=== PATIENT | female | born 1960 | race Caucasian/White ===

== ENCOUNTER 2018-03-06 14:02 | Emergency (ER) | payer OTHER, SELFPAY ==
[2018-03-06 14:11] VITALS: BP 121/72; PULSE 83; RESP 16; TEMP 37.1; O2SAT 98
--- NOTE | 2018-03-06 15:14 | W.ED.GENAD ---
Discharge Plan Disposition Patient Disposition: HOME Condition: Good Discharge Details Chief Complaint: Laceration Clinical Impression: Laceration of left index finger, Laceration of left middle finger Primary Care Provider: Falguni Kaiser ED Provider: Fercho Bernard Home Meds and New Rx's Prescriptions: No Action paroxetine HCl [Paxil] 30 MG tablet 30 mg PO HS RF: 0 omega 6-zhf-pdm-fish oil 1 EACH capsule,delayed release(DR/EC) 1 ea PO HS RF: 0 ibuprofen 200 MG capsule 600 mg PO PRN PRNRF: 0 Discharge Instructions Instructions: Finger Laceration (ED) Additional Instructions: Watch for any signs of infection and return immediately if these occur. Otherwise keep wound clean and dry and keep dressing in place for the next 24-48 hours. Return to emergency department 10 days for suture removal Referrals: [facility] Emergency Dept. [Outside] (Return to emergency department 10 days for suture removal. Otherwise return immediately for any signs of infection) Discharge Data Discharge Date/Time-TO BE ENTERED AT DEPARTURE: 03/06/18 15:27 Medical Decision Making MDM Narrative Medical decision making narrative: Patient presenting to the emergency department after hand laceration while using hedge tremors. Patient has a very small superficial laceration to the palmar aspect of the left hand on the distal index finger that is nonbleeding and superficial. Patient does have a deeper laceration to the base of the left index finger that is approximately 2 cm in total length irregular borders multiple flaps. Patient has full movement function and sensation along with appropriate cap refill distal to injury to point discrimination is intact patient gave verbal consent to clean out and suture repair. Wound was anesthetized with 2 mL's of 1% lidocaine and finger tourniquet was placed on the wound. Wound was viewed to base in bloodless field and only adipose tissue involvement was noted. No tendon, bone, vascular, or neurological damage is noted. Wound was thoroughly irrigated with normal saline and closed with 4-0 Prolene and 6 sutures were utilized to approximate wound edges. Wound was then covered with bacitracin and sterile gauze. Patient encouraged to return for any signs of infection otherwise to return in 10 days for suture removal patient states tetanus within the last 2 years.. HPI - General Adult General Date/Time Provider Initiated Documentation: 03/06/18 14:22. Limitations to Documentation: no limitations. Information obtained by: patient and RN notes reviewed. History of Present Illness 57 year old F presents to the emergency department with the chief complaint of left finger laceration, described as mild, with intensity rated at 3. Quality is described as dull and constant, and is localized to the left and upper extremity. Patient reports no radiation. Patient started experiencing this hour(s) (2) and it has been constant. No relieving factors improve symptom(s), No exacerbating factors reported . Patient notes no other symptoms.. Patient did receive the following treatments prior to arrival, none Related Data Home Medications Medication Instructions Recorded Confirmed omega 6-fjv-ojh-fish oil 1 ea PO HS 04/16/16 03/06/18 paroxetine HCl [Paxil] 30 mg PO HS 04/16/16 03/06/18 ibuprofen 600 mg PO PRN PRN 04/20/16 03/06/18 Allergies Allergy/AdvReac Type Severity Reaction Status Date / Time codeine AdvReac Severe Unverified 03/06/18 14:17 hydrocodone bitartrate AdvReac Severe n/v Unverified 03/06/18 14:17 [From Vicodin] meperidine HCl [From Demerol] AdvReac Severe n/v Unverified 03/06/18 14:17 General Stated Complaint: Laceration JUANITO: 4 Review of Systems Constitutional Denies body ache(s), Denies chills and Denies fever(s) Cardiovascular Denies chest pain and Denies dyspnea Respiratory Denies dyspnea Musculoskeletal Denies limited range of motion, Denies muscle weakness and Denies numbness Integumentary/Breasts Reports as per HPI and Denies rash Neurologic Denies confusion, Denies numbness and Denies sensory deficit Psychiatric Denies confusion [facility] Social History Smoking/Tobacco Use Status: Former Tobacco Use Surgical History Arthroplasty of knee (04/20/16) Exam Const General: cooperative, no acute distress and not ill appearing Orientation: alert, awake and oriented x3 HENMT Mouth: moist mucous membranes Resp Effort & Inspection: normal respiratory effort, able to speak in complete sentences and no respiratory distress Cardio Rate: regular rate Rhythm: regular rhythm Neuro General: alert, awake, oriented x3, moves all extremities and no focal motor deficits Sensory Exam: no sensory deficits noted Extrem Left upper extremity: full ROM, normal capillary refill and hand Details: normal capillary refill, neuromotor exam normal, neurosensory exam normal, tendon exam normal, vascular exam Details: radial pulse present and laceration 3rd digit palmar aspect distal Details: flap, superficial, with motor nerve function intact and with sensation intact; not actively bleeding, 2nd digit palmar aspect proximal Details: irregular, Y-shaped, actively bleeding, involving subcutaneous tissue, with motor nerve function intact and with sensation intact; not involving muscle tissue Course Vital Signs Temperature 37.1 C 03/06/18 14:11 Pulse 83 03/06/18 14:11 Respiratory Rate 16 03/06/18 14:11 Blood Pressure 121/72 03/06/18 14:11 Pulse Oximetry 98 03/06/18 14:11 Temperature 37.1 C 03/06/18 14:11 Pulse 83 03/06/18 14:11 Respiratory Rate 16 03/06/18 14:11 Blood Pressure 121/72 03/06/18 14:11 Pulse Oximetry 98 03/06/18 14:11 Procedures Laceration Laceration 1: Site: hand (Proximal index finger) Side (If applicable): left Size (cm): 2 Description: irregular and clean Depth: simple, single layer Local Anesthetic: Lidocaine 1% Amount of anesthesia used (mL): 2 Pre-repair: wound explored, irrigated extensively and deep structures intact Skin layer closed with: nylon Size (cm): 4-0 Number of sutures: 6 Technique: simple, interrupted
--- NOTE | 2018-03-06 15:19 | ED.GENADUL_ITS ---
Discharge Plan Disposition Patient Disposition: HOME Condition: Good Discharge Details Chief Complaint: Laceration Clinical Impression: Laceration of left index finger, Laceration of left middle finger Primary Care Provider: Falguni Kaiser ED Provider: Fercho Bernard Home Meds and New Rx's Prescriptions: No Action paroxetine HCl [Paxil] 30 MG tablet 30 mg PO HS RF: 0 omega 6-oke-hrn-fish oil 1 EACH capsule,delayed release(DR/EC) 1 ea PO HS RF: 0 ibuprofen 200 MG capsule 600 mg PO PRN PRNRF: 0 Discharge Instructions Instructions: Finger Laceration (ED) Additional Instructions: Watch for any signs of infection and return immediately if these occur. Otherwise keep wound clean and dry and keep dressing in place for the next 24- 48 hours. Return to emergency department 10 days for suture removal Referrals: [facility] Emergency Dept. [Outside] (Return to emergency department 10 days for suture removal. Otherwise return immediately for any signs of infection) Discharge Data Discharge Date/Time-TO BE ENTERED AT DEPARTURE: 03/06/18 15:27 Medical Decision Making MDM Narrative Medical decision making narrative: Patient presenting to the emergency department after hand laceration while using hedge tremors. Patient has a very small superficial laceration to the palmar aspect of the left hand on the distal index finger that is nonbleeding and superficial. Patient does have a deeper laceration to the base of the left index finger that is approximately 2 cm in total length irregular borders multiple flaps. Patient has full movement function and sensation along with appropriate cap refill distal to injury to point discrimination is intact patient gave verbal consent to clean out and suture repair. Wound was anesthetized with 2 mL's of 1% lidocaine and finger tourniquet was placed on the wound. Wound was viewed to base in bloodless field and only adipose tissue involvement was noted. No tendon, bone, vascular , or neurological damage is noted. Wound was thoroughly irrigated with normal saline and closed with 4-0 Prolene and 6 sutures were utilized to approximate wound edges. Wound was then covered with bacitracin and sterile gauze. Patient encouraged to return for any signs of infection otherwise to return in 10 days for suture removal patient states tetanus within the last 2 years.. HPI - General Adult General Date/Time Provider Initiated Documentation: 03/06/18 14:22 . Limitations to Documentation: no limitations . Information obtained by: patient and RN notes reviewed . History of Present Illness 57 year old F presents to the emergency department with the chief complaint of left finger laceration, described as mild, with intensity rated at 3. Quality is described as dull and constant, and is localized to the left and upper extremity. Patient reports no radiation. Patient started experiencing this hour(s) (2) and it has been constant. No relieving factors improve symptom(s), No exacerbating factors reported . Patient notes no other symptoms.. Patient did receive the following treatments prior to arrival, none Related Data Home Medications Medication Instructions Recorded Confirmed omega 1-nxk-nwr-fish oil 1 ea PO HS 04/16/16 03/06/18 paroxetine HCl [Paxil] 30 mg PO HS 04/16/16 03/06/18 ibuprofen 600 mg PO PRN PRN 04/20/16 03/06/18 Allergies Allergy/AdvReac Type Severity Reaction Status Date / Time codeine AdvReac Severe Unverified 03/06/18 14:17 hydrocodone bitartrate AdvReac Severe n/v Unverified 03/06/18 14:17 [From Vicodin] meperidine HCl [From Demerol] AdvReac Severe n/v Unverified 03/06/18 14:17 General Stated Complaint: Laceration JUANITO: 4 Review of Systems Constitutional Denies body ache(s), Denies chills and Denies fever(s) Cardiovascular Denies chest pain and Denies dyspnea Respiratory Denies dyspnea Musculoskeletal Denies limited range of motion, Denies muscle weakness and Denies numbness Integumentary/Breasts Reports as per HPI and Denies rash Neurologic Denies confusion, Denies numbness and Denies sensory deficit Psychiatric Denies confusion [facility] Social History Smoking/Tobacco Use Status: Former Tobacco Use Surgical History Arthroplasty of knee (04/20/16) Exam Const General: cooperative, no acute distress and not ill appearing Orientation: alert, awake and oriented x3 HENMT Mouth: moist mucous membranes Resp Effort & Inspection: normal respiratory effort, able to speak in complete sentences and no respiratory distress Cardio Rate: regular rate Rhythm: regular rhythm Neuro General: alert, awake, oriented x3, moves all extremities and no focal motor deficits Sensory Exam: no sensory deficits noted Extrem Left upper extremity: full ROM, normal capillary refill and hand Details: normal capillary refill, neuromotor exam normal, neurosensory exam normal, tendon exam normal, vascular exam Details: radial pulse present and laceration 3rd digit palmar aspect distal Details: flap, superficial, with motor nerve function intact and with sensation intact; not actively bleeding, 2nd digit palmar aspect proximal Details: irregular, Y-shaped, actively bleeding, involving subcutaneous tissue, with motor nerve function intact and with sensation intact; not involving muscle tissue Course Vital Signs Temperature 37.1 C 03/06/18 14:11 Pulse 83 03/06/18 14:11 Respiratory Rate 16 03/06/18 14:11 Blood Pressure 121/72 03/06/18 14:11 Pulse Oximetry 98 03/06/18 14:11 Temperature 37.1 C 03/06/18 14:11 Pulse 83 03/06/18 14:11 Respiratory Rate 16 03/06/18 14:11 Blood Pressure 121/72 03/06/18 14:11 Pulse Oximetry 98 03/06/18 14:11 Procedures Laceration Laceration 1: Site: hand (Proximal index finger) Side (If applicable): left Size (cm): 2 Description: irregular and clean Depth: simple, single layer Local Anesthetic: Lidocaine 1% Amount of anesthesia used (mL): 2 Pre-repair: wound explored, irrigated extensively and deep structures intact Skin layer closed with: nylon Size (cm): 4-0 Number of sutures: 6 Technique: simple, interrupted
== END 2018-03-06 15:27 | disposition home or self-care (01) ==
LOC: ER 15:29
PROVIDERS: Emergency Provider Nurse Practitioner Family; PCP Nurse Practitioner Family
DX: S61.213A Laceration without foreign body of left middle finger without damage to nail, initial encounter (principal); S61.211A Laceration without foreign body of left index finger without damage to nail, initial encounter; W27.1XXA Contact with garden tool, initial encounter; Y93.H2 Activity, gardening and landscaping
CPT/HCPCS: 12001

== ENCOUNTER 2019-07-23 01:19 | Outpatient (CLI) | payer OTHER, SELFPAY ==
--- NOTE | 2019-07-23 13:30 | DI.CTLCSR_ITS ---
EXAM: CT CHEST LUNG CANCER SCREEN CLINICAL HISTORY: Baseline screening for lung cancer, Z87.891 TECHNIQUE: COMPARISON: No exams were available for comparison FINDINGS: CT examination of chest was performed utilizing low-dose lung cancer screening protocol. Images obta ined through the upper abdomen show unremarkable appearance of visualized portions of liver, spleen, and left adrenal. No mediastinal or hilar adenopathy identified. No pleural effusion or pleural-based mass. Tiny calc ified lingular nodule noted. Tiny flattened fissural nodule also noted on the left. No suspicious p ulmonary nodule identified. IMPRESSION: Negative CT, lung cancer screening protocol. Category 1. Routine LD CT follow-up in 12 months.
--- NOTE | 2019-07-23 14:00 | DI.MAMMO_ITS ---
EXAM: MAMMO SCREENING CLINICAL HISTORY: screening, Z12.39 TECHNIQUE: Mammograms were interpreted according to the usual protocol including computer analysis w [employer] CAD system, tomosynthesis and C-view imaging. COMPARISON: Current examination is compared with previous examinations including July 2017 FINDINGS: The breasts are heterogeneously dense. No dominant mass or clumped microcalcification is identified in either breast. Current examination is compared with previous examinations including July 2017 and there is question of an interval development of nodular appearance of retroareolar radiodensitie s in the left breast on CC view in comparison with the prior studies. Additional evaluation with spo t compression views of the left breast recommended in CC projection. Additionally, there is question of interval change in appearance of areas of asymmetric density with question of architectural distortion in the retroareolar portion of the right breast on MLO view. Ad ditional MLO spot compression view of the right breast requested as well. IMPRESSION: Additional mammographic views of both breasts requested as described above. Breast ultrasound may be indicated as well depending on the results of the additional mammographic views. Category 0, breast d ensity category C. BI-RADS Cat 0 - Assessment Incomplete: Need additional imaging evaluation Breast Density - Category C - Heterogeneously dense
== END 2019-07-23 01:39 ==
PROVIDERS: PCP Internal Medicine; Visit Provider Internal Medicine
DX: Z12.31 Encounter for screening mammogram for malignant neoplasm of breast (principal); R92.8 Other abnormal and inconclusive findings on diagnostic imaging of breast; Z12.2 Encounter for screening for malignant neoplasm of respiratory organs
CPT/HCPCS: 77063; 77067; G0297

== ENCOUNTER 2019-08-06 02:20 | Outpatient (CLI) | payer OTHER, SELFPAY ==
--- NOTE | 2019-08-06 14:15 | DI.US_ITS ---
EXAM: MG MAMMO SCREEN CALL BACK BI CLINICAL HISTORY: F/U ABNL MAMMO, ? NODULAR RETROAREOLAR RADIODENSITIES, LT; ASYMMETRIC RETROAREOLA R DENSITY, RT. TECHNIQUE: Craniocaudal and mediolateral oblique Full Field Digital Mammography views of the bilater al breast with Computer Aided Diagnosis followed by Tomosynthesis and bilateral breast ultrasound. COMPARISON: Priors available for comparison FINDINGS: Mammography/Tomosynthesis: Masses/Architectural Distortion: None seen. Microcalcifictions: No suspicious pleomorphic-type are seen. Skin Thickening/Nipple Retraction: None. Right breast US: Echotexture: Normal appearance of the glandular tissue. Shadowing: No suspicious foci. Cyst: None. Solid lesions: None seen. Ductal dilation: None. Left breast US: Echotexture: Normal appearance of the glandular tissue. Shadowing: No suspicious foci. Cyst: None. Solid lesions: None seen. Ductal dilation: None. IMPRESSION: 1. No evidence of malignancy is noted. 2. Unless there is more urgent need, follow-up screening mammography is recommended, as per [employer] guidelines. ACR BI-RAD Category- 1 Negative Breast Density - Category C - Heterogeneously dense Findings were discussed with the patient on the date of the examination. The mammogram demonstrates the patient's breast tissue is dense. Dense breast tissue is very common a nd is not abnormal but dense breast tissue can make it harder to find cancer on a mammogram. Also, de nse breast tissue may increase their breast cancer risk. This information about the result of the [facility] mogram report was provided to the patient to raise their awareness. Use this report when you speak wi th the patient about their risks for breast cancer, which includes their family history. At that time , you may recommend for more screening tests (Ultrasound or MRI) as they might be useful based on the ir risk. A negative radiographic report should not delay biopsy if a dominant or clinically suspicious mass is present. Up to ten percent of cancers are not identified on mammography. A negative report may reinforce clinical impression. Adenosis and dense breasts may obscure an underlying neoplasm. False positive reports average 6 to 10%. Patient will receive a letter notifying them of these results.
== END 2019-08-06 02:40 ==
PROVIDERS: PCP Internal Medicine; Visit Provider Internal Medicine
DX: Z12.31 Encounter for screening mammogram for malignant neoplasm of breast (principal); R92.8 Other abnormal and inconclusive findings on diagnostic imaging of breast; N64.59 Other signs and symptoms in breast
CPT/HCPCS: 76642; 77063; 77067

== ENCOUNTER 2019-12-28 00:47 | Outpatient (CLI) | payer OTHER, SELFPAY ==
--- NOTE | 2019-12-28 07:00 | DI.CT_ITS ---
EXAM: CT RENAL COLIC WO CLINICAL HISTORY: KIDNEY STONE ON CT 12-15-19, NEPHROLITHIASIS, N20.0 CALCULUS. TECHNIQUE: Imaging Protocol: Axial computed tomography images with coronal and sagittal reformatted images were created and reviewed. Oral: no COMPARISON: No exams were available for comparison FINDINGS: ABDOMEN: Lung Bases: Normal where visualized. Liver: Normal density. No measurable mass. Gallbladder and biliary tract: No radiodense calculus or dilation. Pancreas: Normal density, no abnormal calcifications or inflammatory process. Spleen: Normal. Kidneys: Normal size, contour and axis. There is a 5 millimeter stone near the lower pole of the rig ht kidney. A 4 millimeter stone is seen near the lower pole of the left kidney. There is an adjacen t 2 millimeter stone. No obstructive uropathy. No masses seen. Adrenal glands: No masses seen. Lymph nodes: Within normal limits. Abdominal Aorta: Abdominal portion non-dilated. Moderate calcification. PELVIS: Bladder: Symmetric distention, no gross wall thickening. No mass or stones. Bowel: No obstruction or bowel wall thickening. Peritoneal cavity: No ascites, collection or mesenteric inflammatory response. Reproductive organs: Within normal limits. Bones: Degenerative changes and scoliosis. IMPRESSION: Nonobstructing stones at the lower poles of both kidneys. RADIATION DOSE DELIVERED: Total DLP Total DLP DATA REPOSITORY: All CT scans at this facility are submitted to the National Radiology Data Registry (NRDR) Dose Index Registry (DIR) with the [employer] (ACR). RADIATION OPTIMIZATION: All CT scans at this facility use at least one of these dose optimization te chniques: automated exposure control; mA and/or kV adjustment per patient size (includes targeted exa ms where dose is matched to clinical indication); or iterative reconstruction.
== END 2019-12-28 01:07 ==
PROVIDERS: PCP Internal Medicine; Visit Provider Internal Medicine
DX: N20.0 Calculus of kidney (principal)
CPT/HCPCS: 74176

== ENCOUNTER 2020-06-01 02:16 | Outpatient (CLI) | payer OTHER, SELFPAY ==
[2020-06-02 19:21] LABS: COVID-19 RT-PCR UVMMC Result Negative (Negative)
== END 2020-06-01 02:36 ==
PROVIDERS: PCP Internal Medicine; Visit Provider Internal Medicine
DX: Z11.59 Encounter for screening for other viral diseases (principal)
CPT/HCPCS: U0003

== ENCOUNTER 2020-06-26 02:00 | Emergency (ER) | payer OTHER, SELFPAY ==
--- NOTE | 2020-06-26 02:00 | DI.CT_ITS ---
EXAM: CT RENAL COLIC WO INDICATION: right flank pain. COMPARISON: CT CT RENAL COLIC WO from 12/28/2019 TECHNIQUE: CT examination was performed without contrast administration. FINDINGS: Images obtained through the lung bases are unremarkable. Visualized portions of the liver and splee n appear intact. Visualized portions of the pancreas are unremarkable. Gallbladder and bile ducts are CT normal. Abdominal aorta is of normal diameter. No significant abdominal wall hernia. No significant abdominal or pelvic adenopathy. Adrenals appear normal bilaterally. There are bilateral nonobstructing renal calculi, the largest lying in the inferior pole of the right kidney measuring about 5 millimeters in diameter. There is no left hydronephrosis or ureterolithias is. There is moderate right hydronephrosis and hydroureter to the level of the distal ureter few cm above the ureterovesical junction where there is an obstructing 7 millimeter in diameter stone. Urinary bladder is nearly empty. There is no evidence of appendicitis or diverticulitis. No evidence of bowel obstruction. IMPRESSION: Bilateral nonobstructing nephrolithiasis. Obstructing 7 millimeter in diameter distal right ureteral stone. RADIATION DOSE DELIVERED: 647.25mGy.cm DLP 647.25mGy.cm Total DLP
[2020-06-26 02:05] VITALS: BP 167/91; PULSE 63; RESP 16; TEMP 36.9; O2SAT 99
--- NOTE | 2020-06-26 02:10 | ED.GENADUL_ITS ---
Discharge Plan Disposition Patient Disposition: HOME Condition: Good Discharge Details Clinical Impression: Kidney stone Primary Care Provider: Claire Aguilera ED Provider: Colby Shah Home Meds and New Rx's Prescriptions: New tamsulosin [Flomax] 0.4 mg capsule 0.4 mg PO DAILY Qty: 7 RF: 0 Continued escitalopram oxalate 5 mg tablet 7.5 mg PO DAILY Qty: 135 RF: 2 tumeric 500 mg tablet 1 tab PO DAILY RF: 0 dimenhydrinate [Dramamine] 50 mg tablet 50 mg PO BID PRNRF: 0 estradiol [Estrace] 0.01 % (0.1 mg/gram) cream See Rx Instructions VG .COMPLEX PRN (Reason: vaginal irritation) Qty: 42.5 RF: 5 tretinoin 0.1 % cream 1 applic TP QHS RF: 0 ondansetron 4 mg tablet,disintegrating 4 mg PO DAILY PRN (Reason: nausea and vomiting) Qty: 10 RF: 2 omega 9-bwc-gyv-fish oil 1 EACH capsule,delayed release(DR/EC) 1 ea PO HS RF: 0 ibuprofen 200 MG capsule 600 mg PO PRN PRNRF: 0 ketorolac 10 mg tablet 10 mg PO PRNRF: 0 Discharge Instructions Instructions: Kidney Stones (ED) Additional Instructions: At this time you have evidence of a kidney stone on your CAT scan. It will likely pass in the next day or so. Please take the Flomax as needed if you have continued pain. Next dosing would be 12/25/2020 6 AM. Please continue to take your ketorolac and Tylenol as needed for pain. Please drink plenty of fluids. If you notice any worsening of your symptoms, or any new symptoms such as vomiting, diarrhea, fever, chills, shortness of breath, chest pain, numbness, weakness, or fainting , please return immediately to the emergency department for reevaluation. Please follow up with your primary care provider as soon as possible for reassessment and reevaluation. As always, it was a pleasure participating in your medical care today. Referrals: Claire Aguilera MD [Primary Care Provider] - Medical Decision Making 59-year-old female with a past medical history of previous kidney stones presents today for evaluation of right flank pain. Patient states that this evening she developed rather sudden onset flank pain at 8 PM, stating that it felt exactly like her previous kidney stone. She took 10 mg of oral ketorolac, she felt that this notably improved her symptoms. She denies any blood, fever, dysuria. She did have one episode of vomiting shortly after taking the ketorolac. She denies any other complaints at this time. No other modifying factors. Physical exam demonstrates mild right CVA tenderness, no signs of an acute guarding or rebound in the abdomen. Symptoms are concerning for kidney stone. She does not want any opiates for pain management, and in fact her pain is very mild at this time. We will Tylenol, gently rehydrate, get a CT scan to evaluate for stone placement or size, get a urinalysis to evaluate for infection. Will monitor closely and reassess. 3:42 AM Patient laboratory work-up has returned, no white count, electrolytes normal, renal function excellent, urinalysis shows no evidence of infection, negative nitrates, negative leuk esterase, no WBCs of significance. Patient feels well. CT scan has returned demonstrates a 7 x 4 mm calculus in the distal right ureter. Patient feels good to go home. Patient will be discharged with Flomax, recommendations for continued ketorolac and Tylenol. Stone per urinalysis is calcium oxalate. Discussed red flags which to return, I have extensively reviewed the treatment plan and discharge instructions with the patient. I have addressed all patient concerns at this time. The patient was made aware of what symptoms to monitor for that would warrant a return to the emergency department. Discussed the plan with the patient, they demonstrate verbal understanding and agreement with our assessment and plan at this time. IMPRESSION: 1. A partially obstructing 7 x 4 mm calculus in the distal right ureter. 2. Additional bilateral nonobstructing nephrolithiasis. 3. Moderate colonic fecal stasis. 4. 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 Osteoarthritis of both hips. Thank you for allowing us to participate in the care of your patient. Dictated and Authenticated by: Lonnie Manriquez MD 06/26/2020 3:30 AM Eastern Time ([place] & [place]) HPI General Date/Time Provider Initiated Documentation: 06/26/20 02:02 . HPI Narrative: 59-year-old female with a past medical history of previous kidney stones presents today for evaluation of right flank pain. Patient states that this evening she developed rather sudden onset flank pain at 8 PM, stating that it felt exactly like her previous kidney stone. She took 10 mg of oral ketorolac, she felt that this notably improved her symptoms. She denies any blood, fever, dysuria. She did have one episode of vomiting shortly after taking the ketorolac. She denies any other complaints at this time. No other modifying factors. Related Data Home Medications Medication Instructions Recorded Confirmed omega 8-qbc-ime-fish oil 1 ea PO HS 04/16/16 06/26/20 ibuprofen 600 mg PO PRN PRN 04/20/16 06/26/20 tretinoin 0.1 % topical cream 1 applic TP QHS 09/08/18 06/26/20 tumeric 1 tab PO DAILY 10/28/18 04/26/20 dimenhydrinate 50 mg tablet 50 mg PO BID PRN tab 07/01/19 06/26/20 estradiol See Rx Instructions VG .COMPLEX 07/01/19 06/26/20 PRN #42.5 gm escitalopram oxalate 5 mg tablet 7.5 mg PO DAILY #135 tab 04/26/20 06/26/20 ondansetron 4 mg disintegrating 4 mg PO DAILY PRN #10 tab 06/07/20 06/26/20 tablet ketorolac 10 mg PO PRN 06/26/20 tamsulosin [Flomax] 0.4 mg PO DAILY #7 cap 06/26/20 Previous Rx's Medication Instructions Recorded estradiol See Rx Instructions VG .COMPLEX 07/01/19 PRN #42.5 gm escitalopram oxalate 5 mg tablet 7.5 mg PO DAILY #135 tab 04/26/20 ondansetron 4 mg disintegrating 4 mg PO DAILY PRN #10 tab 06/07/20 tablet tamsulosin [Flomax] 0.4 mg PO DAILY #7 cap 06/26/20 Allergies Allergy/AdvReac Type Severity Reaction Status Date / Time codeine AdvReac Severe vomiting Verified 06/26/20 02:09 hydrocodone bitartrate AdvReac Severe n/v Verified 06/26/20 02:09 [From Vicodin] meperidine HCl [From Demerol] AdvReac Severe n/v Verified 06/26/20 02:09 melatonin AdvReac Intermediate very Verified 06/26/20 02:09 irritable paroxetine AdvReac Intermediate sleep Verified 06/26/20 02:09 issues, hot flashes General Stated Complaint: Urinary JUANITO: 3 Review of Systems All systems reviewed & are unremarkable except as noted in HPI and below PFSH Medical History Carpal tunnel syndrome (06/11/13) Hot flash not due to menopause Longitudinal melanonychia R Great toe, 09/04/18 [facility] [place]erm[place] Solar lentiginosis 09/04/18 [facility] [place]erm Surgical History Arthroplasty of knee (04/20/16) LEFT/DR. PANDYA H/O colonoscopy (~06/24/09) History of esophagogastroduodenoscopy (EGD) (~06/24/00) S/P left knee arthroscopy (~04/20/16) w/Limited chondroplasty medial femoral condyle, medial tibial plateau and patella. 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[employer] What is your relationship status?: Panel score (0-1 are the most socially isolated patients): 1 What type of physical activity do you participate in: regular exercise Frequency: 3-4 times per week Seatbelt use: always Helmet use: Yes Drive intox or ride w/intox 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 3.ENT: Atraumatic external nose and ears. Moist MM. Neck: Symmetric, trachea midline, No thyromegaly. 4.CVS: +S1/S2, No murmurs or gallops. Peripheral pulses 2+ and equal in all extremities. Brisk capillary refill in all extremities. 5.RESP: Unlabored respiratory effort. Clear to auscultation bilaterally. No wheezes rales or rhonchi 6.GI: Soft, Nontender/Nondistended, No hepatosplenomegaly. No guarding or r ebound. Mild right CVA tenderness. No pain or McBurney's point, negative Cook sign. 7.MSK: Normocephalic/Atraumatic, Extremities w/o deformity or ttp No cyanosis or clubbing, Normal movement of all extremities 8.Skin: Warm, Dry. No rashes or lesions. 9.Neuro: occupational health technician II-XII grossly intact. Sensation grossly intact, no focal neurologic deficits. 10.Psych: (AAO) x3. Appropriate mood and affect Course Vital Signs Vital signs: Vital Signs Temperature 36.9 C 06/26/20 02:05 Pulse 63 06/26/20 02:05 Respiratory Rate 16 06/26/20 02:05 Blood Pressure 167/91 H 06/26/20 02:05 Pulse Oximetry 99 06/26/20 02:05 Temperature 36.9 C 06/26/20 02:05 Temperature Source Skin 06/26/20 02:05 Pulse 63 06/26/20 02:05 Respiratory Rate 16 06/26/20 02:05 Blood Pressure 167/91 H 06/26/20 02:05 Pulse Oximetry 99 06/26/20 02:05 Pain Level 10 06/26/20 02:05
[2020-06-26] MEDS: Acetaminophen 500 MG TAB 1000 MG PO (02:29)
[2020-06-26] MEDS: Normal Saline 1,000 ML 1000 ML IV (02:29)
[2020-06-26 02:38] LABS: Abs Immature Grans 0.02 10^3/uL (0.0-0.06); Absolute Basophil Count 0.02 10^3/uL (0.0-0.2); Absolute Eosinophil Count 0.16 10^3/uL (0.0-0.7); Absolute Lymphocyte Count 3.07 10^3/uL (1.2-3.4); Absolute Monocyte Count 0.54 10^3/uL (0.1-0.8); Absolute Neutrophil Count 2.89 10^3/uL (1.2-6.7); Basophils % 0.3; Eosinophils % 2.4; HCT 41.5 % (36.0-46.0); HGB 13.4 g/dL (11.2-15.7); Immature Grans % 0.3; Lymphocytes % 45.8; MCH 30.2 pg (27.0-33.0); MCHC 32.3 % (32.0-36.0); MCV 93.5 fL (80-95); MPV 11.1 fL (8.0-11.0); Monocytes % 8.1; Neutrophils % 43.1; Nucleated RBC 0 %; Platelet Count 188 10^3/uL (130-400); RBC 4.44 10^6/uL (3.93-5.22); RDW 12.1 % (11.7-14.6); RDW-SD 41.8 fL
[2020-06-26 02:39] LABS: Bilirubin Small (Negative); Blood Moderate (Negative); Clarity Sl Cloudy (Clear); Glucose Negative (Negative); Ketones Negative (Negative); Leukocyte Esterase Negative (Negative); Nitrite Negative (Negative); Specific Gravity >= 1.030 (1.005-1.025); Urobilinogen 0.2 EU/dL (Up TO 0.2); pH 5.5 (5-8)
[2020-06-26 02:46] LABS: Bacteria Rare HPF (Negative); C & S Indicated? No; Casts Negative LPF (Negative); Crystals Mod Calcium Oxalate HPF (Negative); Epithelial Cells Rare HPF (Negative); Mucus Negative (Negative); RBC 20-50 HPF (0-2); WBC 0-2 HPF (0-5)
[2020-06-26 02:55] LABS: ALT 53 U/L (14-59); AST 37 U/L (15-37); Albumin 3.8 g/dL (3.4-5.0); Alkaline Phosphatase 72 U/L (46-116); BUN 32 mg/dL (7-18); Bilirubin, Total 0.4 mg/dL (0.2-1.0); CREATININE 0.93 mg/dL (0.55-1.02); Calcium 8.7 mg/dL (8.5-10.1); Chloride 104 mmol/L (98-107); Glucose 94 mg/dL (74-106); Potassium 3.9 mmol/L (3.5-5.1); Sodium 138 mmol/L (136-145); Total Protein 6.9 g/dL (6.4-8.2)
--- NOTE | 2020-06-26 03:30 | DI.VRAD_ITS ---
PROCEDURE INFORMATION: Exam: CT Abdomen And Pelvis Without Contrast Exam date and time: 06/26/2020 2:37 AM Age: 59 years old Clinical indication: Other: RT flank pain TECHNIQUE: Imaging protocol: Computed tomography of the abdomen and pelvis without contrast. COMPARISON: CT RENAL COLIC WO 12/28/2019 9:19 AM FINDINGS: Lungs: The visualized lung da silva show mild bibasilar atelectasis. Liver: The liver dome is outside the field of view. The liver shows normal homogeneous density. Gallbladder and bile ducts: No calcified gallstones. No ductal dilation. Pancreas: Normal size and homogeneous density. No ductal dilation. Spleen: Normal. No splenomegaly. Adrenal glands: Normal. No mass. Kidneys and ureters: There is mild right hydronephrosis and there is fullness of the right ureter down to the lower pelvis where there is a 7 x 4 mm partially obstructing calculus above the right ureterovesical junction. There are additional bilateral nonobstructing renal calculi as large as 5 mm. Stomach and bowel: There is moderate fecal stasis throughout the colon. There is no evidence of small bowel or colonic obstruction. Appendix: The appendix is not identified. There are no secondary signs of acute appendicitis. Intraperitoneal space: No free air. No significant fluid collection. Vasculature: There is moderate atherosclerotic calcification and tortuosity of the abdominal aorta and iliac arteries without an abdominal aortic aneurysm. Lymph nodes: No enlarged retroperitoneal or mesenteric lymph nodes. Urinary bladder: The bladder shows a normal contour. Reproductive: Unremarkable as visualized. Bones/joints: There is moderate rotoscoliosis of the lumbar spine convex to the right. At L1-L2 and L2-L3 there are degenerative disc disease and osteophytes. There is mild grade 1 retrolisthesis of L2 on L3. There is moderate bilateral neural foraminal narrowing. There is osteoarthritis of both hips. Soft tissues: Unremarkable. IMPRESSION: 1. A partially obstructing 7 x 4 mm calculus in the distal right ureter. 2. Additional bilateral nonobstructing nephrolithiasis. 3. Moderate colonic fecal stasis. 4. 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 Osteoarthritis of both hips. Dictated and Authenticated by: Lonnie Manriquez MD. Ordering:SHARI Bowman MD
[2020-06-26] MEDS: Ketorolac 30 MG/ML VIAL IVP (03:49)
[2020-06-26] MEDS: Tamsulosin 0.4 MG CAPCR PO (03:50)
[2020-06-26 03:53] VITALS: BP 152/83; PULSE 54; RESP 16; O2SAT 98
== END 2020-06-26 04:00 | disposition home or self-care (01) ==
PROVIDERS: Emergency Provider Student in an Organized Health Care Education/Training Program; PCP Internal Medicine
DX: N20.1 Calculus of ureter (principal); Z87.442 Personal history of urinary calculi
CPT/HCPCS: 36415; 80053; 96361; 96374; 99284; 74176; 81003; 81015; 85025; 99285; J1885

== ENCOUNTER 2021-02-10 10:39 | Outpatient (CLI) | payer OTHER, SELFPAY ==
--- NOTE | 2021-02-10 09:45 | DI.RAD_ITS ---
Exam(s) XR HIP RT COMPLETE AP PELVIS EXAM: XR HIP RT COMPLETE AP PELVIS CLINICAL HISTORY: right groin pain. TECHNIQUE: 2D digital imaging was performed. COMPARISON: No exams were available for comparison FINDINGS: BONES: No acute fracture is present. No bony destructive lesion is seen. JOINTS: No dislocation present. There are moderate degenerative changes of the right hip with joint s pace narrowing and periarticular spurring. More mild degenerative changes are seen in the left hip. The sacroiliac joints and symphysis pubis are intact. SOFT TISSUE: Normal. IMPRESSION: Moderate degenerative changes of the right hip. DATA REPOSITORY: RADIATION DOSE DELIVERED:
== END 2021-02-10 10:40 | disposition home or self-care (01) ==
LOC: DIORS 10:40
PROVIDERS: PCP Internal Medicine; Visit Provider Physician Assistant
DX: M16.11 Unilateral primary osteoarthritis, right hip; R10.31 Right lower quadrant pain; G89.29 Other chronic pain
CPT/HCPCS: 73502

== ENCOUNTER 2021-03-28 10:04 | Outpatient (CLI) | payer OTHER, SELFPAY ==
--- NOTE | 2021-03-28 09:45 | DI.RAD_ITS ---
Exam(s) XR PELVIS AP EXAM: XR PELVIS AP CLINICAL HISTORY: right hip pain. TECHNIQUE: 2D digital imaging was performed. One AP view of the pelvis was obtained. COMPARISON: CR XR HIP RT COMPLETE AP PELVIS from 02/10/2021 FINDINGS: BONES: No acute fracture is present. No bony destructive lesion is seen. JOINTS: No dislocation present. Moderate degenerative changes of the hips is seen bilaterally with martine int space narrowing and periarticular spurring, right greater than left. SOFT TISSUE: Normal. IMPRESSION: Moderate degenerative changes of the hips, right greater than left. DATA REPOSITORY: RADIATION DOSE DELIVERED:
== END 2021-03-28 10:05 | disposition home or self-care (01) ==
LOC: DIORS 10:04
PROVIDERS: PCP Internal Medicine; Referring Provider Internal Medicine; Visit Provider Physician Assistant
DX: M25.551 Pain in right hip (principal); M16.11 Unilateral primary osteoarthritis, right hip
CPT/HCPCS: 72170

== ENCOUNTER 2021-04-10 02:47 | Outpatient (CLI) | payer OTHER, SELFPAY ==
[2021-04-10 10:03] LABS: HCT 45.1 % (36.0-46.0); HGB 14.5 g/dL (11.2-15.7); MCH 30.3 pg (27.0-33.0); MCHC 32.2 % (32.0-36.0); MCV 94.4 fL (80-95); Platelet Count 185 10^3/uL (130-400); RBC 4.78 10^6/uL (3.93-5.22); RDW-SD 42.3 fL; WBC 5.03 10^3/uL (4.4-10.8)
[2021-04-10 10:40] LABS: Anion Gap 7.5 mmol/L (3-11); BUN 25 mg/dL (7-18); CO2 29.5 mmol/L (21.0-32.0); CREATININE 0.8 mg/dL (0.55-1.02); Calcium 9.2 mg/dL (8.5-10.1); Chloride 108 mmol/L (98-107); Glucose 99 mg/dL (74-106); Potassium 3.9 mmol/L (3.5-5.1); Sodium 145 mmol/L (136-145)
== END 2021-04-10 02:48 | disposition home or self-care (01) ==
LOC: LBO 02:47
PROVIDERS: PCP Internal Medicine; Visit Provider Student in an Organized Health Care Education/Training Program
DX: M25.551 Pain in right hip (principal); M16.11 Unilateral primary osteoarthritis, right hip; Z01.818 Encounter for other preprocedural examination; Z01.812 Encounter for preprocedural laboratory examination
CPT/HCPCS: 36415; 80048; 85027; 86850; 86900; 86901

== ENCOUNTER 2021-04-10 02:54 | Outpatient (CLI) | payer OTHER, SELFPAY ==
[2021-04-10 11:35] LABS: Source Nasal/Nares
[2021-04-10 16:28] LABS: COVID-19 PCR Negative (Negative)
== END 2021-04-10 02:55 | disposition home or self-care (01) ==
LOC: LBO 02:54
PROVIDERS: PCP Internal Medicine; Visit Provider Student in an Organized Health Care Education/Training Program
DX: Z20.822 Contact with and (suspected) exposure to COVID-19 (principal); Z01.818 Encounter for other preprocedural examination
CPT/HCPCS: 87635

== ENCOUNTER 2021-04-11 06:01 | Day surgery (SDC) | payer OTHER, SELFPAY ==
[2021-04-10 13:51] VITALS: BP 117/80; PULSE 63; RESP 18; TEMP 36.6; O2SAT 97
[2021-04-11] VITALS (12 sets, daily range): BP systolic 86–141; BP diastolic 42–83; PULSE 44–60; RESP 13–21; TEMP 36.1–36.6; O2SAT 96–100; BMI 24.1
[2021-04-11] MEDS: Acetaminophen 500 MG TAB 1000 MG PO (06:21)
[2021-04-11] MEDS: Celecoxib 200 MG CAP 400 MG PO (06:22)
[2021-04-11] MEDS: Lactated Ringers 1,000 ML 80 ML IV (06:40)
--- NOTE | 2021-04-11 06:53 | W.ANESPRE ---
General Info Date of Service Date Performed: 04/11/21 Height: 5 ft 2 in Weight: 59.874 kg Body Mass Index (BMI): 24.1 Surgical Procedure: Operation Date: 04/11/21 07:50 Proposed Procedures Side Surgeon p Hip Total Hip Anterior Right Bal Anderson MD Meds Allergies and Home Medications Allergies Allergy/AdvReac Type Severity Reaction Status Date / Time codeine AdvReac Severe vomiting Verified 04/11/21 06:25 hydrocodone bitartrate AdvReac Severe n/v Verified 04/11/21 06:25 [From Vicodin] meperidine HCl [From Demerol] AdvReac Severe n/v Verified 04/11/21 06:25 melatonin AdvReac Intermediate very Verified 04/11/21 06:25 irritable paroxetine AdvReac Intermediate sleep Verified 04/11/21 06:25 issues, hot flashes scopolamine AdvReac Intermediate disorientat Verified 04/11/21 06:25 ion Home Medication Medication Instructions Recorded omega 6-srg-vap-fish oil 1 ea PO HS 04/16/16 ibuprofen 600 mg PO PRN PRN 04/20/16 tretinoin 0.1 % topical cream 1 applic TP QHS 09/08/18 tumeric 1 tab PO DAILY 10/28/18 dimenhydrinate 50 mg tablet 50 mg PO BID PRN tab 07/01/19 estradiol See Rx Instructions VG .COMPLEX 07/01/19 PRN #42.5 gm escitalopram oxalate 5 mg tablet 7.5 mg PO DAILY #135 tab 04/26/20 Current Visit Medications: Current Medications Generic Name Dose Route Start Last Admin Trade Name Alexsanderq PRN Reason Stop Dose Admin Acetaminophen 1,000 mg 04/11/21 06:00 04/11/21 06:21 Acetaminophen 500 Mg Tab PO 04/11/21 16:00 1,000 mg PREOP MARIUM Administration Celecoxib 400 mg 04/11/21 06:00 04/11/21 06:22 Celecoxib 200 Mg Cap PO 04/11/21 16:00 400 mg PREOP MARIUM Administration Tranexamic Acid 1,000 mg/ 60 mls @ 360 mls/hr 04/11/21 06:00 Sodium Chloride IV 04/11/21 16:00 PREOP MARIUM Ringer's Solution 1,000 mls @ 80 mls/hr 04/11/21 06:00 04/11/21 06:40 IV 05/10/21 23:59 80 mls/hr INFUSION MARIUM Administration Cefazolin Sodium/Dextrose 2 gm in 50 mls @ 100 mls/hr 04/11/21 06:00 Ancef Duplex IVPB 05/10/21 23:59 PREOP MARIUM IV Miscellaneous Supplies 1 each 04/11/21 06:00 Iv Access IV 05/10/21 23:59 DIRECTED MARIUM Sodium Chloride 0 ml 04/11/21 06:00 Normal Saline Flush 10 Ml Syr IV 05/10/21 23:59 PRN PRN Sodium Chloride 0 ml 04/11/21 06:00 Normal Saline 10 Ml Vial IJ 05/10/21 23:59 DIRECTED PRN Sterile Water 0 ml 04/11/21 06:00 Water,Injection,Sterile 10 Ml Vial IJ 05/10/21 23:59 DIRECTED PRN PFSH Active Problems Active Problems: Problem Status Onset Code Lentigines L81.4 Benign nevus of skin D22.9 Other seborrheic keratosis L82.1 Degenerative joint disease of right hip M16.11 Trigger thumb of right hand M65.311 Vestibular dysfunction H83.2X9 Elevated blood pressure reading without diagnosis of hypertension R03.0 Nephrolithiasis N20.0 Former cigarette smoker Z87.891 Dyspareunia Anxiety F41.9 Alcohol abuse, 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 PANDYA H/O colonoscopy (~06/24/09) History of esophagogastroduodenoscopy (EGD) (~06/24/00) S/P left knee arthroscopy (~04/20/16) w/Limited chondroplasty medial femoral condyle, medial tibial plateau and patella. S/P rotator cuff repair (~04/2012) right Tobacco Smoking/Tobacco Use Status: Former Tobacco Use Alcohol Alcohol Intake: never Details: no ETOH for 25 yrs Substance Use Substance use: Occasionally Substance use type: marijuana Vital Signs and Lab Results Vital Signs Most Recent Vital Signs in EMR: Most Recent Vital Signs Temp Pulse Resp BP Pulse Ox 36.6 C 63 18 117/80 97 04/10/21 13:51 04/10/21 13:51 04/10/21 13:51 04/10/21 13:51 04/10/21 13:51 Lab Results Blood Type / Crossmatch: Patient ABO/Rh AB Positive 04/10/21 09:44 04/10/21 Antibody Screen NEGATIVE 04/10/21 09:44 04/10/21 Complete Blood Count: White Blood Count 5.03 10^3/uL (4.4-10.8) 04/10/21 09:44 04/10/21 Red Blood Count 4.78 10^6/uL (3.93-5.22) 04/10/21 09:44 04/10/21 Hemoglobin 14.5 g/dL (11.2-15.7) 04/10/21 09:44 04/10/21 Hematocrit 45.1 % (36.0-46.0) 04/10/21 09:44 04/10/21 Platelet Count 185 10^3/uL (130-400) 04/10/21 09:44 04/10/21 Complete Metabolic Panel: Sodium Level 145 mmol/L (136-145) 04/10/21 09:44 04/10/21 Potassium Level 3.9 mmol/L (3.5-5.1) 04/10/21 09:44 04/10/21 Chloride Level 108 mmol/L (98-107) H 04/10/21 09:44 04/10/21 Carbon Dioxide Level 29.5 mmol/L (21.0-32.0) 04/10/21 09:44 04/10/21 Blood Urea Nitrogen 25 mg/dL (7-18) H 04/10/21 09:44 04/10/21 Creatinine 0.8 mg/dL (0.55-1.02) 04/10/21 09:44 04/10/21 Estimated GFR/1.73 m2 >= 60.00 (mL/min/1.73m2) 04/10/21 09:44 04/10/21 Calcium Level 9.2 mg/dL (8.5-10.1) 04/10/21 09:44 04/10/21 Glucose Level 99 mg/dL (74-106) 04/10/21 09:44 04/10/21 Liver Function Panel: No Data to Display Coagulation Panel: No Data to Display Cardiac Panel: No Data to Display Arterial Blood Gas: No Data to Display Venous Blood Gas: No Data to Display Pancreas Panel: No Data to Display Thyroid Panel: No Data to Display Infectious Disease: Coronavirus (COVID-19)(PCR) Negative (Negative) 04/10/21 10:02 04/10/21 Coronavirus 2019 Source Nasal/Nares 04/10/21 10:02 04/10/21 Blood Cultures: No Data to Display Toxicology Panel: No Data to Display Anesthesia Assessment and Plan Anesthesia History Personal History: No History of Anesthesia Complications (Relates n/v from opioids) Family History: No Family History of Anesthesia Complications Exercise Tolerance Exercise Tolerance: Metabolic Equivalents>4 Pertinent Negatives Pertinent Negatives: No Symptoms of GERD, No Major Cardiovascular Symptoms or Complaints, No Major Pulmonary Symptoms or Complaints and No History of CVA/TIA Cardiac & Pulmonary Exam Cardiac Exam: Normal S1/S2 Heart Sounds Pulmonary Exam: Clear Bilateral Breath Sounds Airway Exam Known Difficult Airway: No Mallampati Class: 1 Mouth Opening: Normal (> 3cm) Thyromental Distance: Greater than 3 cm Neck Range of Motion: Full ROM Neck Circumference: Normal Teeth Condition: Normal Dentition ASA Classification ASA Score: ASA 2 Emergency Case?: Yes NPO Status NPO Status: NPO Clears >2 hours, Solids >8 hours Anesthesia Plan Resuscitation Status: Full Code Anesthesia Technique: Spinal Anesthesia Airway Planned: Natural Airway Monitors Used: Standard Monitors
--- NOTE | 2021-04-11 07:15 | W.PM.DSUDISC ---
Discharge Plan Disposition Patient Disposition: HOME Condition: Good Discharge Details Reason For Visit: Right Hip DJD Attending Provider: Bal Anderson Primary Care Provider: Claire Aguilera Home Meds and New Rx's Prescriptions: New aspirin 81 mg tablet,delayed release (DR/EC) 81 mg PO BID Qty: 60 RF: 0 acetaminophen 500 mg tablet 1,000 mg PO Q8H PRN (Reason: pain) Qty: 90 RF: 3 pantoprazole 40 mg tablet,delayed release (DR/EC) 40 mg PO DAILY Qty: 30 RF: 0 ibuprofen 600 mg tablet 600 mg PO TID PRN (Reason: pain) Qty: 90 RF: 3 ondansetron 4 mg tablet,disintegrating 4 mg PO Q8H PRNQty: 10 RF: 0 Continued escitalopram oxalate 5 mg tablet 7.5 mg PO DAILY Qty: 135 RF: 2 tumeric 500 mg tablet 1 tab PO DAILY RF: 0 dimenhydrinate [Dramamine] 50 mg tablet 50 mg PO BID PRNRF: 0 estradiol [Estrace] 0.01 % (0.1 mg/gram) cream See Rx Instructions VG .COMPLEX PRN (Reason: vaginal irritation) Qty: 42.5 RF: 5 tretinoin 0.1 % cream 1 applic TP QHS RF: 0 omega 3-ejn-klz-fish oil 1 EACH capsule,delayed release(DR/EC) 1 ea PO HS RF: 0 Discontinued ibuprofen 200 MG capsule 600 mg PO PRN PRNRF: 0 Discharge Instructions Additional Instructions: Total Hip Discharge Instructions Activity: The most important activity is to walk. You should try to take short walks a few times a day. You have no restrictions on movement or positioning, but do not try to force what you do. You will find some stiffness and weakness with hip flexion (lifting your knee). Do not try to strengthen this too early, continue to practice walking and stairs and this will come. You may also find information and helpful videos about post-operative recovery and exercises on the [employer] website. You may apply ice to the wound and the immediately surrounding tissues. You may also apply heat to the muscle farther from the surgical site and try massage for any cramping or muscle pains. - Outpatient physical therapy can be helpful to help return you to a normal gait and improve your flexibility and strength. This can start around 2 weeks. For some patients, it?s not necessary. Usually this is determined at the time of discharge or at the first post-operative visit. - You should wear the ANGELICA hose or another compression type sock on both legs for 2 weeks to limit swelling. Dressing: Keep the surgical dressing in place for at least one week. After the first week it may be removed and replace with light gauze and tape or nothing. It may get wet after 3 days but avoid soaking the dressing. If it gets wet, just lightly pat dry. It is important to always keep some gauze between skin folds, especially when you are sitting. Spend some time with the wound exposed when you are lying flat as the incision does wrinkle onto itself. Medications: - You should take Tylenol and an anti-inflammatory Ibuprofen as your primary pain control medications. - You have also been prescribed a stomach acid reduction agent Pantoprozole to help reduce stomach acid and reflux. - You will be taking Aspirin 81mg twice a day for DVT prevention unless instructed otherwise. - You also have an anti-nausea medication, Ondansetron, called in to assist with any post-operative nausea. - If you have constipation you should take Colace or Miralax (both [id number]). It takes most people 3-4 days to have a bowel movement. - If you are having any increase in pain not controlled with ice/heat/Tylenol/Ibuprofen, please contact Dr. Anderson or his office. Follow-up: 2 weeks If you have any acute concerns or questions, please do not hesitate to contact the office at [phone]. You may contact Dr. Anderson with any questions after hours through the hospital at [phone] or on his cell phone at [phone]. Stand Alone Forms: Anesthesia Discharge Inst., Anes.Nerve Block Instructions, Shante Holcomb (DSU) Equipment/Supplies: Walker Activity:: Activity as Tolerated Remove Dressings/Wound Care:: Do Not Remove Shower/Bathe:: Cover Diet:: As Tolerated Discharge Orders Discharge Orders: Discharge Order (Routine); Ordered 04/11/21 Ordered By: Bal Anderson DS: Diagnosis Discharge Diagnosis (1) Degenerative joint disease of right hip: Status: Acute
[2021-04-11] MEDS: ceFAZolin 2 GM/50 ML BAG IVPB (07:32)
[2021-04-11] MEDS: Ketorolac 30 MG/ML VIAL (08:01)
[2021-04-11] MEDS: Bupivacaine 0.25% Pres-Free 30 ML VIAL (08:01)
--- NOTE | 2021-04-11 08:54 | DI.RAD_ITS ---
Exam(s) XR HIP RT IN OR EXAM: XR HIP RT IN OR CLINICAL HISTORY: right total hip replacement in OR TECHNIQUE: 2D and realtime digital imaging was performed. CONTRAST MATERIAL: Refer to procedure report. COMPARISON: CR XR PELVIS AP from 03/28/2021 CR XR PELVIS AP from 03/28/2021 FINDINGS: Fluoroscopy was provided for Dr. Anderson during the performance of a right total hip replacement. Please refer to the procedure report for complete details. Ka,r=4.33 mGy IMPRESSION: RADIATION DOSE DELIVERED:
--- NOTE | 2021-04-11 09:36 | W.PM.OP ---
Date of service: 04/11/21 Time of Service: 09:14 Operative Note Operative Note DATE OF PROCEDURE: 04/11/21 PRE-OP DIAGNOSIS: Right Hip Osteoarthritis POST-OP DIAGNOSIS: same PROCEDURE: Right Anterior Total Hip Arthroplasty with Intraoperative Navigation SURGEON: Bal Anderson PHOTOGRAMMETRIC COMPILATION SPECIALIST: Marlyn Kothari ANESTHESIA TYPE: Spinal Refer to Anesthesia Record ESTIMATED BLOOD LOSS: 250 PATHOLOGY: none sent TOURNIQUET TIME: 0 COMPLICATIONS: None Patient was transported to: PACU Patient's condition: stable Implants: 1. Depuy Clio Acetabular Component, 50mm 2. Depuy Acetabular Liner, [id number] 3. Depuy Corail Coxa Vara Collared Femoral Stem, Size 12 4. Depuy Altrx Ceramic Femoral Head, Size 32+1mm Indications: I have seen Mary Lou in clinic for symptoms of hip arthritis, confirmed with radiographic findings. Mary Lou has exhausted nonoperative methods and was having significant limitations in daily function and desired better function and less pain. I discussed the technical details of a hip replacement. I explained the risks of the procedure to include, but not limited to, bleeding, infection, pain, stiffness, fracture, damage to nerves and vessels, damage to muscles and tendons, loosening, instability, leg length inequality, need for repeat procedure, blood clot and cardiopulmonary demise. Despite these risks, she elected to proceed. Findings: There was significant signs of arthritis throughout the hip. Procedure Description: Mary Lou was greeted in the preoperative holding area where the correct side was identified and marked. The consent was reviewed with the patient and signed. The history and physical was updated. All questions were answered. She was taken back to the operating room. A spinal anesthestic was then administered. The feet were wrapped with cast padding and Coban and then placed into the boot liners and then into the boots. Care was taken to protect the skin and make sure the heels were fully down and the boots were stable. The patient was then positioned onto the HANA table. Both legs were held in a neutral position. SCDs were applied. The patient was then slid down onto a peroneal post. Prophylactic antibiotics in the form of Cefazolin were administered. 1g of Tranxemic Acid was given intravenously within 30 minutes of incision. The right leg was then prepped with Chloraprep and draped in a standard fashion. A second prep with Chloraprep was performed prior to placement of a shower-curtain type drape with Iodine impregnated skin protection. A timeout to confirm correct identity, side and site, procedure, allergies, anesthesia, and medical concerns was performed. An obliquely oriented incision was made starting lateral to the ASIS and running distal over the Tensor Fascia Myrna (TFL) muscle belly toward the fibular head, approximately 10cm. The skin and soft tissue was dissected sharply, through Rubi?s fascia, and to the fascia of the TFL. With the fascia and superior border of the IT band identified, the fascia was incised with a new knife just above any perforators from the IT band. The TFL muscle belly was bluntly dissected away from the fascia and moved laterally. The fat between TFL and rectus was identified to ensure the dissection was not within the TFL. Blunt dissection created space between abductors and the capsule and retractor was placed over the lateral femoral neck. The fibers of the rectus femoris tendon were identified and these were freed from the anterior capsule. A second cobra retractor was placed around the medial femoral neck. The TFL was further retracted laterally to show the deep fascia. Careful dissection through this layer identified three main crossing vessels of the lateral femoral circumflex. These were cauterized in multiple locations and then cut without any noticeable bleeding. The TFL was further released bluntly from the deep fascia to expose anterior hip capsule and fat The Estuardo orthopaedic retractor was then placed beneath the TFL and against sartorius and medial soft tissues to protect and retract the soft tissues. A T-capsulotomy was then performed starting at the superior lateral acetabulum and moving distally to the intertrochanteric ridge. These capsular flaps were tagged with a No. 1 Ethibond and elevated from within. The capsular flaps were released to the shoulder of the lateral neck and to the lesser trochanter to give excellent visualization of the proximal femur. A neck osteotomy was performed using an oscillating saw based on preoperative templates. This cut started in the shoulder and of the lateral neck and exited medially. The saw was at all times directed medially to avoid injury to the greater trochanter. Gross traction was applied to the leg and the osteotomy opened. The femoral head was removed with a corkscrew, making sure to protect the TFL on its exit. Traction was released after head removal. This was measured on the back table to determine the starting reamer size. Portions of the rectus obscuring visualization were minimally elevated off the superior acetabulum. An anterior retractor was placed over the anterior wall between capsule and labrum and attached to the Gripper retraction system. The femur was rotated to 90 degrees and medial capsule was fully released until the lesser trochanter was palpable and visible; the femur was returned to 30 degrees. A posterior retractor was placed similarly between capsule and labrum. This provided excellent visualization. The contents of the cotyloid fossa were removed with electrocautery and the labrum was removed with a knife. There was a notable floor osteophyte. There was significant chondromalacia of the superior acetabulum. Acetabular reaming began with a 46mm reamer. This first reaming was directed anterior to posterior and medial to get down to the true floor. This was inspected and reamed until the true floor was reached. The anterior retractor was then released and entry and exit was provided by traction on the capsular flaps. I then reamed sequentially up to a 50mm reamer where good fit was obtained. The larger reamers were oriented based on anatomical reference of the anterior and lateral nunez to ensure proper abduction and anteversion. Positioning and size was confirmed with the fluoroscopy. A 50mm Depuy Clio acetabular component was selected. The acetabulum was reamed around the periphery with the selected acetabular size to prevent a rim fit. The deep tissues were irrigated. The acetabular component was then impacted in a position of about 40-45 degrees of abduction and 15-20 degrees of anteversion, using the patient?s anatomy as the ultimate landmark. Fluoroscopy was used to confirm this. There was excellent switchboard wire worker helper of the acetabular component and the inserting handle was removed. The acetabular liner, Depuy [id number] polyethylene liner, was inserted and lined up with the tines of the acetabular component. There was no soft tissue interposition. The liner was then impacted into position and confirmed to be well-seated. A portion of the breanne-articular cocktail was then injected around the acetabulum into the capsule and periosteum. This cocktail consisted of 50cc of 0.25% Bupivicaine and 20cc of Exparel and 30mg of Ketorolac. The leg was rotated to 120 degrees. Any remaining medial capsule was released until the lesser trochanter was easily palpable. A retractor was placed medially. The lateral capsule was further released into the shoulder to allow access to the greater trochanter. A Velazquez retractor was placed over the greater trochanter which allowed the trochanter to flip in front of the capsule for excellent exposure. The leg was brought down into maximal extension and 20 degrees of adduction while ensuring there was no impingement on the acetabulum. Any remnant capsule within the trochanter was released. Piriformis and obturator externis were identified and protected. There was excellent access to the proximal femur. The lateral neck remnant was removed with a rongeur. A blunt canal probe was used to identify the canal and trajectory for later broaching. A box osteotome initiated the broach course. A small curved rasp and a curved curette were used to work laterally. Broaching then began with a size 8 Corail broach. This was inserted manually around the trochanter and into the canal before mallet blows. The broach was seated to a few millimeters below the cut level based on the neck cut and the preoperative template. Sequential broaching was continued until a tight fit was obtained with good rotational control of the femur. A trial coxa vara neck was inserted along with a +1 trial head. The leg was brought out of extension and adduction and then reduced with traction and internal rotation. The leg was stable anteriorly in a position of 30 degrees of extension and 90 degrees of external rotation. Fluoroscopy was used to ensure there was no fracture and the stem was seated well. Leg lengths were checked with an AP pelvis and pelvic reference points. Nuvotronics navigation system was used to confirm appropriate positioning and leg length and offset. Once content with the desired offset and leg lengths, the leg was brought back into extension, external rotation and adduction. The periosteum and surrounding tissue was injected with remaining portion of the breanne-articular cocktail. The proximal femur was irrigated as well as the deep tissues. At this point there was noted to be some comminution of the base of the neck/trochanter junction. There was no fracture of the greater trochanter and none extending into the proximal femur. This was fully inspected and the bony fragments were attached to some capsular tissue and were left in place. The Depuy Corail Coxa Vara collared stem, size 12, was then manually inserted into the proximal femur making sure to control rotation. It was then malleted into position with light blows, giving breaks to allow bone expansion and decrease risk of fracture. The selected Depuy Altrx Ceramic Head, size 32+1mm, was then placed onto the clean and dry trunnion and secured with impaction onto the tapered fit. The leg was brought back out of extension and adduction and reduced with traction and internal rotation. Stability was confirmed with no shuck at 90 degrees of external rotation and 30 degrees of extension. No impingement through range of motion arc. Final x-ray images were obtained with fluoroscopy to confirm adequate positioning and no intraoperative fracture. There was some fracturing of the lateral neck/trochanter juction. It did not extend into the proximal femur or the trachanter but was some comminution of the lateral neck remnant with some capsule attached. Abductors were firmly attached to the greater trochanter. The deep tissues were thoroughly irrigated with Irrisept chlorhexadine solution. The capsule was then reapproximated with the previously placed Ethibond sutures and #1 Vicryl. The TFL fascia was finally closed with a No. 2 Stratafix, barbed suture. Deep tissues were then reapproximated with 0 Vicryl and a running 2-0 Vicryl. The skin was closed with a running 4-0 Monocryl in a subcuticular fashion. This was reinforced with skin glue. A Mepilex silver dressing was applied. At the end of the case, all counts were correct. Mary Lou was transferred to the hospital bed without difficulty and suffering no apparent complication. Mary Lou has a good prognosis. Physical therapy will start today and without restrictions, weight-bearing as tolerated. Aspirin 81mg BID will be used for DVT prophylaxis.
[2021-04-11] MEDS: Normal Saline Flush 10 ML SYR IV ×2 (11:26→12:19)
[2021-04-11] MEDS: dimenhyDRINATE 50 MG TABLET PO (11:47)
[2021-04-11] MEDS: LORazepam 2 MG/ML VIAL 0.25 MG IV (11:56)
[2021-04-11] MEDS: Droperidol 5 MG/2 ML VIAL 0.625 MG IVP (12:18)
--- NOTE | 2021-04-11 12:34 | W.ANESPOSTOP ---
Postoperative Evaluation Date, Time and Location Date Performed: 04/11/21 Time Performed: 12:35 Patient Location: Day Surgery Unit Vital Signs Most Recent Imported Vital Signs: Most Recent Vital Signs Temp Pulse Resp BP Pulse Ox 36.2 C L 54 L 18 129/82 98 04/11/21 12:10 04/11/21 12:10 04/11/21 12:10 04/11/21 12:10 04/11/21 12:10 Pain Score Most Recent Pain Score: Most Recent Pain Score Pain Level 4 04/11/21 12:10 Assessment Mental Status: Awake (Alert & Oriented to Patient Baseline) Airway and Respiratory Function: Patent airway with normal (patient baseline) respiratory exam Cardiovascular Function: Hemodynamically Stable Hydration Status: Adequately Hydrated Nausea & Vomiting: No Nausea or Vomiting Pain: Pain is tolerable per patient Peripheral Nerve Block: Patient did not receive a nerve block Postoperative Comments:: Medications effective for motion sickness. Resting comfortably.
--- NOTE | 2021-04-11 13:12 | IN_ITS ---
Date of service: 04/11/21 Time of Service: 13:12 PT Notes Visit Reasons: Right Hip DJD Physical Therapy Day Surgery Initial Evaluation Date: 04/11/2021 Referring Doctor: Bal Anderson MD PT Orders: PT CONSULT: Status post Ortho surgery Precautions: WBAT on right LE with AD. Patient Profile/Admitting Diagnosis: Mary Lou is a 60-year-old female with degenerative joint disease of the right hip and is status post right anterior total hip arthroplasty on postoperative day 0. 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 PANDYA H/O colonoscopy (~06/24/09) History of esophagogastroduodenoscopy (EGD) (~06/24/00) S/P left knee arthroscopy (~04/20/16) w/Limited chondroplasty medial femoral condyle, medial tibial plateau and patella. S/P rotator cuff repair (~04/2012) right Social History/Home Situation: Lives with in a private home with one- step to enter leading onto a porch and another 1 step that leads to the main entrance of the house. Independent with all ADLs without an assistive device prior to admission. Equipment Owned/DME: None Subjective: Complained of severe nausea earlier today but did not have issues when [facility] Did report nausea after ambulation activity and vomited x 1 scant yellowish fluid. States mild numbness in the back of R hip. Objective: General Observation: Seated on bedside chair. IV access in left UE. TEDs in B legs. Mental Status: Alert and oriented x 4 Pain: 3/10 pain in the right hip ROM: Right Lower Extremity: Hip flexion WFL. Hip abduction WFL. Knee flexion WFL. Ankle dorsiflexion WFL. Ankle plantarflexion WFL. Left Lower Extremity: Hip flexion WFL. Hip abduction WFL. Knee flexion WFL. Ankle dorsiflexion WFL. Ankle plantarflexion WFL. Strength: Right Lower Extremity: Hip flexors 4/5. Hip abductors 4/5. Knee flexors 5/5. Knee extensors 4/5. Ankle dorsiflexors 5/5. Ankle plantarflexors 5/5. Left Lower Extremity:Hip flexors 5/5. Hip abductors 5/5. Knee flexors 5/5. Knee extensors 5/5. Ankle dorsiflexors 5/5. Ankle plantarflexors 5/5. Sensation: Numb and her right posterior thigh otherwise intact in bilateral lower extremities Bed Mobility/Transfers: Sit to stand standby assist Stand to sit standby assist Bed to chair standby assist Gait: Instructed patient with level surface ambulation of up to 100 feet using front wheeled walker with step to gait pattern requiring reports 3?4/10 pain in her right hip that did not limit distance covered. Complain of mild nausea that resulted to scant vomitus x 1. Balance: Static Sitting: Normal Dynamic Sitting: Normal Static Standing: Fair Dynamic Standing: Fair Special Tests: Mobility Limitations Standardized Measure [facility] AM-PAC 6 clicks Basic Mobility Inpatient Short Form: Raw Score: 23 CMS Score: 11% deficit Informed Consent/Education: Patient instructed in purpose of PT consult. Packet containing JUAN RAOMN exercise protocol has been given to patient. Education and training on initial set of exercises that can be done at home have been completed with patient and her . Assessment: Mary Lou demonstrates the need for front wheeled walker for all mobility ADL performance to maximize independence and reduce fall risk at home. Patient presents with clinical signs and symptoms consistent with current/admitting diagnoses that have resulted to mobility limitations, gait instability, generalized weakness, and impairment of motor control as demonstrated by the following impairment level findings: 1. Decreased strength to right hip major muscle groups 2. Impaired standing balance 3. Nausea and vomiting Impairments are contributing to the following functional limitations: 1. Inability to safely ambulate without assistive device 2. Increase completion time for mobility ADL performance 3. Increased fall risk Patient is assessed as a [id number] moderate complexity based on the following: History: 60-year-old female with impairment level findings, functional limitations, and past medical history as indicated above Examination: Demonstrable impairment in strength, balance, and mobility level with underlying impairments and functional limitations as documented above Presentation: Evolving Decision Makin moderate complexity Goals: N/A. PT evaluation and 1-2 treatment sessions only for functional mobility training using recommended AD and for HEP instruction. Plan of Care/Treatment Plan: N/A. PT evaluation and 1-2 treatment session only for functional mobility training using recommended AD and for HEP instruction. DISCHARGE RECOMMENDATIONS: Home when medically cleared by orthopedic surgeon. Outpatient physical therapy services to facilitate return to community ambulation without an assistive device. TREATMENT CODE/TIME: 91067 x 26 minutes beginning at 13:12 PM. Thank you for the opportunity to participate in the care of this patient. Meme King PT, DPT, CLT [facility] [place], [place]
== END 2021-04-11 14:20 | disposition home or self-care (01) ==
PROVIDERS: PCP Internal Medicine; Visit Provider Student in an Organized Health Care Education/Training Program
PROC: (CPT 27130; principal; 2021-04-11 07:30)
DX: M16.11 Unilateral primary osteoarthritis, right hip (principal)
CPT/HCPCS: 27130; 20985; 97162; 73501; J0690; J1100; J1790; J1885; J2060; J2250; J2405

== ENCOUNTER 2021-04-24 10:23 | Outpatient (CLI) | payer OTHER, SELFPAY ==
--- NOTE | 2021-04-24 10:00 | DI.RAD_ITS ---
Exam(s) XR HIP RT COMPLETE AP PELVIS EXAM: XR HIP RT COMPLETE AP PELVIS CLINICAL HISTORY: 1st post op R JUAN RAMON. TECHNIQUE: 2D digital imaging was performed. COMPARISON: Prior x-rays 03/28/2021 FINDINGS: There has been interval right hip arthroplasty. There is satisfactory position alignment of the comp onents of the prosthesis. No fracture or loosening evident. IMPRESSION: DATA REPOSITORY: RADIATION DOSE DELIVERED:
== END 2021-04-24 10:24 | disposition home or self-care (01) ==
LOC: DIORS 10:23
PROVIDERS: PCP Internal Medicine; Referring Provider Internal Medicine; Visit Provider Student in an Organized Health Care Education/Training Program
DX: Z96.641 Presence of right artificial hip joint (principal); Z47.1 Aftercare following joint replacement surgery
CPT/HCPCS: 73502

== ENCOUNTER 2021-05-29 11:17 | Outpatient (CLI) | payer OTHER, SELFPAY ==
--- NOTE | 2021-05-29 09:30 | DI.RAD_ITS ---
Exam(s) XR HIP RT AP LAT ONLY EXAM: XR HIP RT AP LAT ONLY CLINICAL HISTORY: JUAN RAMON. TECHNIQUE: 2D digital imaging was performed. COMPARISON: 04/24/2021 x-rays FINDINGS: There is continued stable position alignment of the components of the prosthesis. No fracture or loo sening evident. Mild dystrophic calcification is noted above the neck component. IMPRESSION: DATA REPOSITORY: RADIATION DOSE DELIVERED:
== END 2021-05-29 11:18 | disposition home or self-care (01) ==
LOC: DIORS 11:18
PROVIDERS: PCP Internal Medicine; Visit Provider Physician Assistant
DX: Z96.641 Presence of right artificial hip joint (principal)
CPT/HCPCS: 73502

== ENCOUNTER → 2021-09-29 01:01 | Outpatient (CLI) | payer OTHER, SELFPAY ==
--- NOTE | 2021-09-29 07:15 | DI.MRI_ITS ---
Exam(s) MR LUMBAR SPINE WO EXAM: MR LUMBAR SPINE WO CLINICAL HISTORY: continued pain,sciatica,m54.30. TECHNIQUE: Multiplanar multisequence MRI of the Lumbar spine was performed. COMPARISON: CT CT RENAL COLIC WO from 06/26/2020 FINDINGS: Five lumbar vertebrae are presumed. There is scoliosis convex right which has epicenter at L2-3 leve l. There are large left lateral osteophytes at L2-3 level. Conus medullaris is at normal level. There is no evidence of conus mass nor subjacent clumping of in trathecal nerve roots to suggest arachnoiditis. The distal thecal sac appears unremarkable.There is no evidence of Tarlov intrasacral cysts nor other significant findings within the sacral canal Bones:There are no acute or recent appearing fractures nor ominous osseous lesions in the lumbar vert ebral bodies and visualized sacrum. With respect to the individual levels... T10-11: There is a posterolateral left disc protrusion at this level which extends posteriorly 3 mill imeters and is 5 millimeters wide and dense the thecal sac, this seen on the uppermost images of left field of view of this study. This is protrusion dense the thecal sac but not the cord at this level . The osseous central canal dimensions are within normal limits at this level. Cannot assess the ex iting neural foramina at this level from this study. T11-T12: Decreased disc height and signal. Broad annular bulging. No focal dominant disc herniation . Central canal dimensions lower normal. Mild bilateral foraminal stenosis. T12-L1: Unremarkable L1-2: Moderate decreased disc height. Mild symmetrical annular bulging without a dominant disc herni ation. No central canal stenosis. No prominent foraminal stenosis. Mild facet joint degenerative c hanges. L2-3: There is advanced disc space narrowing on the left side of the disc space and moderate narrowin g on the right side, this being the epicenter for the scoliosis convex right. There is broad annular bulging and posterior bony ridging which is more prominent on the left side and extends into the exi ting left neural foramen where there is moderate left-sided foraminal stenosis. There is only mild r ight-sided foraminal stenosis due to relatively preservation of disc height on the right side of this disc space. Mild-moderate central canal stenosis evident which is due to broad annular bulging and short AP dimensions the pedicles.Mild facet arthropathy at this level. L3-4: Mild disc space narrowing on the right side of the disc space. There is annular bulging at thi s level which extends into the exiting right neural foramen, resulting in mild-moderate right-sided f oraminal stenosis. There is no obvious foraminal stenosis on the left side. Mild central canal sten osis. Mild facet arthropathy. L4-5: Preserved disc height and signal. No disc herniation. No central canal stenosis. No foramina l stenosis. Mild facet degenerative changes. No ligamentum flavum hypertrophy. L5-S1: Preserved disc height and signal. Mild annular bulging but no dominant disc herniation or jared tral canal stenosis. No significant foraminal stenosis on left side. On the right side there is mil d foraminal stenosis due to facet arthropathy. Soft tissues: paraspinal soft tissues appear unremarkable. IMPRESSION: 1. The main findings here are in the upper lumbar spine as described above. There are no significant true findings at L4-5 and L5-S1 levels. 2. There is asymmetric advanced narrowing of the left side of the L2-3 disc space which serves as the epicenter of the degenerative scoliosis here (convex-right). There are large left-sided bridging os teophytes at this level (L2-3). There is significant left-sided foraminal stenosis at this level and mild-moderate central canal stenosis. There is minimal foraminal stenosis on the right side at this level. 3. Other findings as above including an incidentally noted posterolateral left disc protrusion at T10 -11 level. DATA REPOSITORY:
== END ==
PROVIDERS: PCP Internal Medicine; Visit Provider Internal Medicine
DX: M54.16 Radiculopathy, lumbar region (principal); M51.16 Intervertebral disc disorders with radiculopathy, lumbar region; M41.86 Other forms of scoliosis, lumbar region; M51.24 Other intervertebral disc displacement, thoracic region
CPT/HCPCS: 72148

== ENCOUNTER 2021-10-10 06:18 | Day surgery (SDC) | payer OTHER, SELFPAY ==
[2021-10-10 06:36] VITALS: BP 147/87; PULSE 72; RESP 16; TEMP 36.5; O2SAT 99
--- NOTE | 2021-10-10 07:21 | PDOC.DSDIS_ITS ---
Discharge Plan Disposition Patient Disposition: HOME Condition: Good Discharge Details Reason For Visit: Right Trigger Thumb Attending Provider: Bal Anderson Primary Care Provider: Claire Aguilera Home Meds and New Rx's Prescriptions: New acetaminophen 500 mg tablet 1,000 mg PO Q8H PRN (Reason: pain) Qty: 60 3RF ibuprofen 600 mg tablet 600 mg PO TID PRN (Reason: pain) Qty: 60 3RF Continued tumeric 500 mg tablet 1 tab PO DAILY 0RF dimenhydrinate [Dramamine] 50 mg tablet 50 mg PO BID PRN0RF estradiol [Estrace] 0.01 % (0.1 mg/gram) cream See Rx Instructions VG .COMPLEX PRN (Reason: vaginal irritation) Qty: 42.5 5RF Rx Instructions: 06/27 applicator vaginal TIW. Also dot on fingertip externally prn. tretinoin 0.1 % cream 1 applic TP QHS 0RF escitalopram oxalate 5 mg tablet 7.5 mg PO DAILY Qty: 135 2RF omega 8-nge-zul-fish oil 1 EACH capsule,delayed release(DR/EC) 1 ea PO HS 0RF ondansetron 4 mg tablet,disintegrating 4 mg PO Q8H PRNQty: 10 0RF Discharge Instructions Stand Alone Forms: Monica Kinney Finger Release Referrals: Bal Anderson MD [ [facility] STAFF PHYSICIAN] - Activity:: Elevate Remove Dressings/Wound Care:: 48 hours Shower/Bathe:: 48 hours Diet:: As Tolerated Discharge Orders Discharge Orders: Discharge Order (Routine); Ordered 10/10/21 Ordered By: Bal Anderson DS: Diagnosis Discharge Diagnosis (1) Trigger thumb of right hand: Status: Acute
[2021-10-10] MEDS: Sodium Bicarbonate 50 MEQ/50 ML VIAL (07:29)
[2021-10-10 07:55] VITALS: BP 135/76; PULSE 55; RESP 16; TEMP 36.1; O2SAT 16
--- NOTE | 2021-10-10 10:27 | W.PM.OP ---
Date of service: 10/10/21 Time of Service: 07:45 Operative Note Operative Note DATE OF PROCEDURE: 10/10/21 PRE-OP DIAGNOSIS: Right Trigger Thumb POST-OP DIAGNOSIS: same PROCEDURE: Trigger Finger Release - Right Thumb SURGEON: Bal Anderson ANESTHESIA TYPE: Local By Surgeon Refer to Anesthesia Record PATHOLOGY: none sent COMPLICATIONS: None Patient was transported to: same day Patient's condition: stable Indications: I have seen Mary Lou in clinic for symptoms of a trigger finger. The catching, clicking, locking, and pain limited function. The diagnosis of trigger finger was evident. The symptoms had not responded to conservative measures. I discussed trigger finger release with the patient. I reviewed the risks of the procedure to include, but not limited to, bleeding, infection, pain, stiffness, incomplete release, damage to nerves or vessels, continued catching, recurrence. Despite these risks, the patient elected to proceed. Findings: There was a tightened A1 shane which was released. The flexor tendons were inspected and the patient was able to move the finger without any catching, clicking, or locking. Procedure Description: Mary Lou was greeted in the preoperative holding area where the correct side was identified and marked. The consent was reviewed with the patient and signed. All questions were answered. She was taken back to the operating room. The patient was placed into the supine position on the operating room table with the right arm on an arm board. All bony prominences were well padded. No prophylactic antibiotics were administered since this was a clean, elective hand surgical case. The right arm was then prepped with Chloraprep and draped in a standard fashion with stockinette and extremity drape. A timeout to confirm correct identity, side and site, procedure, allergies, anesthesia, and medical concerns was performed. The surgical site was marked as a longitudinal incision directly over the A1 shane of the involved digit. This was confirmed with palpation during finger flexion. This area, overlying the metacarpal head, was then anesthetized with 1% Lidocaine. The patient tolerated this well and once the anesthetic had setup, the procedure began. A longitudinal incision was made through skin only, approximately 1cm. The deep tissues were dissected bluntly. Once the A1 shane and flexor tendons were identified the soft tissue including neurovascular structures were retracted medially and laterally. There were no crossing structures over the A1 shane. The proximal edge of the shane was identified and the shane was incised with tenotomy scissors. There was a release of the tendons once this was fully released. The tendons were then removed from the wound and inspected. Excess synovium was resected. The tendons were then returned and the patient was asked to move the finger into deep flexion and back to extension. There was no recreation of the pre-operative symptoms. The hand was then once more inspected for any A0 shane or area of possible constriction. The wound was then irrigated and the skin was closed with a 4-0 Nylon. This was dressed with gauze and a Conform dressing. The patient tolerated the procedure well and was returned to the Same Day Surgery area in a stable condition suffering no known complication.
== END 2021-10-10 07:54 | disposition home or self-care (01) ==
PROVIDERS: PCP Internal Medicine; Visit Provider Student in an Organized Health Care Education/Training Program
PROC: (CPT 26055; principal; 2021-10-10 07:30)
DX: M65.311 Trigger thumb, right thumb (principal)
CPT/HCPCS: 26055

== ENCOUNTER 2021-12-11 14:14 | Outpatient (CLI) | payer OTHER, SELFPAY ==
--- NOTE | 2021-12-11 13:45 | DI.RAD_ITS ---
Exam(s) XR KNEE LT 3V AP,LAT,CHARLEE EXAM: XR KNEE LT 3V AP,LAT,CHARLEE CLINICAL HISTORY: pain. TECHNIQUE: 2D digital imaging was performed of the left knee. Three images were obtained. AP, late ral and PA tunnel views were obtained. COMPARISON: CR LEFT KNEE 3 VIEW COMPLETE from 05/16/2015 FINDINGS: BONES: No acute fracture is present. No bony destructive lesion is seen. JOINTS: There is now moderate narrowing in the medial femoral tibial joint space. There is periartic ular spurring in all 3 joint compartments. There is a small joint effusion. SOFT TISSUE: Normal. IMPRESSION: [id number] degenerative changes of the left knee. DATA REPOSITORY: RADIATION DOSE DELIVERED:
--- NOTE | 2021-12-11 13:45 | DI.RAD_ITS ---
Exam(s) XR HAND RT COMPLETE EXAM: XR HAND RT COMPLETE CLINICAL HISTORY: pain. TECHNIQUE: 2D digital imaging was performed of the right hand. Three images were obtained. AP, late ral and oblique views were obtained. COMPARISON: No exams were available for comparison FINDINGS: BONES: No acute fracture is present. No bony destructive lesion is seen. JOINTS: No dislocation present. There are moderate degenerative changes seen in the right hand predom inantly at the DIP joints of the fingers. The findings are most marked at the 1st CMC joint, where t here is joint space narrowing, subchondral sclerosis and periarticular spurring. SOFT TISSUE: Normal. IMPRESSION: Degenerative changes of the right hand as described. DATA REPOSITORY: RADIATION DOSE DELIVERED:
== END 2021-12-11 14:15 | disposition home or self-care (01) ==
LOC: DIORS 14:14
PROVIDERS: PCP Internal Medicine; Referring Provider Internal Medicine; Visit Provider Physician Assistant Surgical
DX: M25.562 Pain in left knee (principal); M17.12 Unilateral primary osteoarthritis, left knee; M25.462 Effusion, left knee; M25.541 Pain in joints of right hand; M18.11 Unilateral primary osteoarthritis of first carpometacarpal joint, right hand
CPT/HCPCS: 73562; 73130

== ENCOUNTER → 2022-03-01 02:17 | Outpatient (CLI) | payer OTHER, SELFPAY ==
--- NOTE | 2022-03-01 07:55 | DI.MAMMO_ITS ---
Exam(s) MAMMO SCREENING EXAM: MAMMO SCREENING CLINICAL HISTORY: screening,Z12.39 TECHNIQUE: Bilateral full field digital CC and MLO mammographic images were obtained with 3D tomosyn thesis and utilizing computer aided detection (CAD). COMPARISON: Available for comparison. FINDINGS: Masses/Architectural Distortion: None seen. Microcalcifications: No suspicious pleomorphic-type are seen. Skin Thickening/Nipple Retraction: None. IMPRESSION: 1. No significant interval change with no specific features of malignancy noted. 2. Unless there is more urgent need, screening mammography is recommended, as per [employer] guidelines. BI-RADS Category 1 - Negative Breast Density - Category C - Heterogeneously dense Breast density category C or D implies that the patient has dense breast tissue. Dense breast tissue is very common and is not abnormal but dense breast tissue can make it harder to find cancer on a ma mmogram. Also, dense breast tissue may increase their breast cancer risk. This information about the result of the mammogram report was provided to the patient to raise their awareness. Use this report when you speak with the patient about their risks for breast cancer, which includes their family hist ory. At that time, you may recommend for more screening tests (Ultrasound or MRI) as they might be us eful based on their risk. A negative radiographic report should not delay biopsy if a dominant or clinically suspicious mass is present. Up to ten percent of cancers are not identified on mammography. A negative report may reinforce clinical impression. Adenosis and dense breasts may obscure an underlying neoplasm. False positive reports average 6 to 10%. Patient will receive a letter notifying them of these results.
== END ==
PROVIDERS: PCP Internal Medicine; Visit Provider Nurse Practitioner
DX: Z12.31 Encounter for screening mammogram for malignant neoplasm of breast (principal); R92.8 Other abnormal and inconclusive findings on diagnostic imaging of breast
CPT/HCPCS: 77063; 77067

== ENCOUNTER 2022-04-16 10:29 | Outpatient (CLI) | payer OTHER, SELFPAY ==
--- NOTE | 2022-04-16 10:00 | DI.RAD_ITS ---
Exam(s) XR HIP RT AP LAT ONLY EXAM: XR HIP RT AP LAT ONLY INDICATION: R THR. COMPARISON: CR XR HIP RT AP LAT ONLY from 05/29/2021 TECHNIQUE: 2D digital imaging was performed. Two views. FINDINGS: There has been no change in the right hip prosthesis or appearance of the surrounding bone. DATA REPOSITORY: RADIATION DOSE DELIVERED:
== END 2022-04-16 10:30 | disposition home or self-care (01) ==
LOC: DIORS 10:30
PROVIDERS: PCP Nurse Practitioner; Referring Provider Nurse Practitioner; Visit Provider Physician Assistant
DX: Z96.641 Presence of right artificial hip joint (principal); Z47.1 Aftercare following joint replacement surgery
CPT/HCPCS: 73502

== ENCOUNTER 2022-06-04 03:23 | Outpatient (CLI) | payer OTHER, SELFPAY ==
[2022-06-04 10:16] LABS: ALT 67 U/L (14-59); AST 37 U/L (15-37); Albumin 3.7 g/dL (3.4-5.0); Alkaline Phosphatase 93 U/L (46-116); Anion Gap 7.2 mmol/L (3-11); BUN 19 mg/dL (7-18); Bilirubin, Total 0.7 mg/dL (0.2-1.0); CO2 29.8 mmol/L (21.0-32.0); CREATININE 0.7 mg/dL (0.55-1.02); Calcium 9.6 mg/dL (8.5-10.1); Calculated LDL 70 mg/dL (<100); Chloride 101 mmol/L (98-107); Cholesterol 139 mg/dL (<200); Estimated GFR 97.72 (mL/min/1.73m2); Glucose 139 mg/dL (74-106); HDL Cholesterol 57 mg/dL (40-60); Potassium 3.3 mmol/L (3.5-5.1); Sodium 138 mmol/L (136-145); Total Protein 7.2 g/dL (6.4-8.2); Triglyceride 62 mg/dL (<150)
[2022-06-04 10:17] LABS: TSH (W/Ref FT4) < 0.01 uIU/mL (0.36-3.74)
== END 2022-06-04 03:24 | disposition home or self-care (01) ==
LOC: LBO 03:23
PROVIDERS: PCP Student in an Organized Health Care Education/Training Program; Visit Provider Nurse Practitioner
DX: F41.8 Other specified anxiety disorders (principal); R00.2 Palpitations; R03.0 Elevated blood-pressure reading, without diagnosis of hypertension; R23.2 Flushing; Z13.220 Encounter for screening for lipoid disorders; Z87.891 Personal history of nicotine dependence
CPT/HCPCS: 36415; 80053; 80061; 84439; 84443

== ENCOUNTER 2022-06-12 18:42 | Outpatient (CLI) | payer OTHER, SELFPAY | END 2022-06-12 18:43 | disposition home or self-care (01) | LOC: DI.KIM 18:50 | PROVIDERS: PCP Student in an Organized Health Care Education/Training Program; Visit Provider Student in an Organized Health Care Education/Training Program | CPT/HCPCS: 93010 ==

== ENCOUNTER 2022-06-15 01:11 | Outpatient (CLI) | payer OTHER, SELFPAY ==
[2022-06-15 13:00] LABS: Abs Immature Grans 0.02 10^3/uL (0.0-0.06); Absolute Basophil Count 0.03 10^3/uL (0.0-0.2); Absolute Eosinophil Count 0.09 10^3/uL (0.0-0.7); Absolute Monocyte Count 0.76 10^3/uL (0.1-0.8); Absolute Neutrophil Count 4.38 10^3/uL (1.2-6.7); Basophils % 0.4; Eosinophils % 1.2; HCT 39.8 % (36.0-46.0); Immature Grans % 0.3; Lymphocytes % 31.3; MCH 28.4 pg (27.0-33.0); MCHC 32.7 % (32.0-36.0); MCV 87 fL (80-95); Monocytes % 9.9; Neutrophils % 56.9; Platelet Count 216 10^3/uL (130-400); RBC 4.58 10^6/uL (3.93-5.22); RDW 11.9 % (11.7-14.6); RDW-SD 37.8 fL; WBC 7.68 10^3/uL (4.4-10.8)
[2022-06-15 13:34] LABS: Anion Gap 8.9 mmol/L (3-11); BUN 31 mg/dL (7-18); CO2 25.1 mmol/L (21.0-32.0); CREATININE 0.5 mg/dL (0.55-1.02); Calcium 9.1 mg/dL (8.5-10.1); Chloride 106 mmol/L (98-107); Estimated GFR 105.98 (mL/min/1.73m2); Glucose 113 mg/dL (74-106); Magnesium 1.8 mg/dL (1.8-2.4); Potassium 3.6 mmol/L (3.5-5.1); Sodium 140 mmol/L (136-145)
[2022-06-15 13:35] LABS: TSH (W/Ref FT4) < 0.01 uIU/mL (0.36-3.74)
[2022-06-15 13:51] LABS: FREE T4 2.77 ng/dL (0.76-1.46)
[2022-06-18 17:12] LABS: T3,Free 16.2 pg/mL (2.8-5.3)
[2022-06-18 19:01] LABS: Thyroglobulin Antibody <15 U/mL (<=60); Thyroperoxidase Antibody 52 U/mL (<=60)
== END 2022-06-15 01:12 | disposition home or self-care (01) ==
LOC: LBO 01:12
PROVIDERS: PCP Student in an Organized Health Care Education/Training Program; Referring Provider Student in an Organized Health Care Education/Training Program; Visit Provider Student in an Organized Health Care Education/Training Program
DX: E06.0 Acute thyroiditis (principal); E05.90 Thyrotoxicosis, unspecified without thyrotoxic crisis or storm; R00.9 Unspecified abnormalities of heart beat; R06.09 Other forms of dyspnea; E87.6 Hypokalemia; E87.8 Other disorders of electrolyte and fluid balance, not elsewhere classified; R03.0 Elevated blood-pressure reading, without diagnosis of hypertension; R61 Generalized hyperhidrosis
CPT/HCPCS: 36415; 80048; 86376; 83735; 84439; 84443; 84481; 85025

== ENCOUNTER 2022-06-21 08:20 | Outpatient (RCR) | payer OTHER, SELFPAY ==
--- NOTE | 2022-06-21 08:30 | HOLTER_ITS ---
APPROVED REPORT Conclusion This is a 48-hour Holter monitor, reportedly ordered for hyperthyroidism Rhythm throughout was sinus with an average heart rate of 77. Minimum was 61, maximum 117 There were very rare isolated atrial premature beats There were no significant ventricular dysrhythmias There was no atrial fibrillation, no SVT, no high-grade AV block, no pauses greater than 3 seconds No patient symptoms were reported
== END 2022-06-23 23:59 | disposition home or self-care (01) ==
LOC: CARDOPNVT 08:20
PROVIDERS: PCP Student in an Organized Health Care Education/Training Program; Visit Provider Student in an Organized Health Care Education/Training Program
DX: E05.90 Thyrotoxicosis, unspecified without thyrotoxic crisis or storm (principal)
CPT/HCPCS: 93225; 93226

== ENCOUNTER 2022-08-03 00:04 | Outpatient (CLI) | payer BC, SELFPAY ==
--- NOTE | 2022-08-03 07:30 | DI.DEXA_ITS ---
Exam(s) XR DEXA BONE DENSITY W/WO LAUREEN EXAM: XR DEXA BONE DENSITY W/WO LAUREEN CLINICAL HISTORY: evaluate bone density,at risk for osteoporosis,screening for osteo,z78.0 TECHNIQUE: COMPARISON: No exams were available for comparison FINDINGS: Lateral Spine Image: Unremarkable. No compression deformities identified. Left hip: Total T-Score: -3.1 Total Z-Score: -2.0 T- and Z-scores: Findings are consistent with osteoporosis. Lumbar Spine: Total T-Score: -2.0 Total Z-Score: -0.4 T- and Z-scores: Findings are consistent with osteopenia. There is osteoporosis seen in the L1 and L 4 vertebral bodies. IMPRESSION: Findings of osteoporosis are seen in the left hip.
--- NOTE | 2022-08-03 12:26 | DI.US_ITS ---
APPROVED REPORT EXAM: Comprehensive 2D, Doppler, and color-flow Echocardiogram Patient Location: Out-Patient Beater Machine Operator: Paola Barajas RDCS (AE) Indications: Evaluate heart function, Dyspnea f/h of heart disease, abnormal heart rhythm, graves dis ease Other Information Study Quality: Good Conclusion Normal left ventricular wall thickness and chamber size. Estimated ejection fraction is 60 to 65%. Wall motion is normal Right ventricular size and systolic function Both atria are normal in size Aortic valve is trileaflet with trace regurgitation Estimated right ventricular systolic pressure is 22 mmHg Mildly dilated ascending aorta Wall motion Left Ventricle The left ventricle is normal size. The left ventricular systolic function is normal. The left ventric ular ejection fraction is within the normal range. There is normal left ventricular wall thickness. T here is normal LV segmental wall motion. There is no ventricular septal defect visualized. LVEF is 60 -65%. Right Ventricle The right ventricle is normal size. The right ventricular systolic function is normal. The RVSP is 21 .7 mmHg. Atria The left atrium size is normal. The right atrium size is normal. The interatrial septum is intact wit h no evidence for an atrial septal defect. Aortic Valve The aortic valve is normal in structure. Aortic valve is trileaflet. There is no aortic valvular sten osis. Trace aortic regurgitation. Mitral Valve The mitral valve is normal in structure. No evidence of mitral valve stenosis. Trace mitral regurgita tion. Tricuspid Valve The tricuspid valve is normal in structure. There is no tricuspid valve stenosis. Trace tricuspid reg urgitation. Pulmonic Valve The pulmonary valve is normal in structure. There is no pulmonic valvular stenosis. Trace pulmonic re gurgitation. Great Vessels The aortic root is normal in size. The ascending aorta is mildly dilated. Aortic arch is normal in ca liber. IVC is normal in size and collapses >50% with inspiration. Pericardium There is no pericardial effusion. 2D Dimensions IVSD d PLAX 0.93 cm F: 0.6-1.0 LV Vol A2C d MOD 101.4 mL LVPW d PLAX 0.94 cm F: 0.6 - 1.0 LV Vol A4C d MOD 83.4 mL LVID d PLAX 4.50 cm F: 3.8 - 5.2 LA vol/ BSA A2C s A-L 37.4 mL/m2 LVDs 2.80 cm F: 2.2 - 3.5 LA vol/ BSA A4C s A-L 31.2 mL/m2 Ao Root d 3.02 cm F: 2.7 - 3.3 LA Vol/ BSA Biplane s A-L 34.9 mL/m2 RA Area A4C 12.67 cm2 LA Area A4C s MOD 17.64 cm2 RA Vol/ BSA A4C s A-L 17.1 mL/m2 LA Area A2C s MOD 19.71 cm2 Ao Asc Diam d 3.47 cm F: 2.3 - 3.1 LV EF A4C MOD 65.8 % LV EF Teichholz 67.9 % LV EF A2C MOD 59.7 % LVEF (Velarde's) 62.15 % F: 54 - 74 LV EF Biplane MOD 62.2 % LV Volume 77.49 mL F: 46 - 106 SV 58.27 mL LV Volume Index 50.64 mL/m2 F: 29 - 61 SV Index 38.06 mL/m2 LV Vol Biplane MOD 93.8 mL FS 37.70 % M-Mode TAPSE 1.98 cm (M/F) >1.7 LV Diastology MV E' medial 0.093 (>0.07 m/s) E/A Ratio 0.8 LV E/e MED 6.75 (<14) MV E Vmax 0.63 (0.4-1.3 m/s) MV E' lateral 0.134 (>0.1 m/s) MV A Vmax 0.80 (0.4-1.3 m/s) LV E/e LAT 4.70 (<14) MV E/A Ratio 0.76 MV E/E' medial 6.77 MV E/E' lateral 4.70 Aortic Valve LVOT Area 3.17 cm2 AoV Area Vmax 2.76 cm2 LVOT Vmax 1.55 m/s AoV Area/ BSA (Vmax) 1.80 cm2/m2 LVOT Mean Eloy. 0.98 m/s JESSICA Mean Eloy. 2.61 cm2 LVOT Peak Grad 9.7 mmHg JESSICA Mean Eloy. Index 1.70 cm2/m2 LVOT Mean Grad 4.6 mmHg LVOT VTI 0.316 m LVOT Diam s 2.00 cm AoV Vmax 1.79 m/s Velocity Ratio 0.87 AoV Mean Eloy. 1.19 m/s AoV Peak Grad 12.8 mmHg LVOT SV 100.37 mL AoV Mean Grad 6.5 mmHg AoV VTI 0.330 m AoV Area VTI 3.04 cm2 AoV Area/ BSA (VTI) 1.98 cm/m2 Mitral Valve MV DT 285 (160-240 msec) MV PHT 83 msec MV Area PHT 2.67 cm2 MV VTI 0.281 m MV Area VTI 3.57 (4.0-6.0 cm2) Pulmonary Valve PV Vmax 1.15 (0.5-1.5 m/s) RVOT Peak Gr. 4.43 mmHg PV Peak Grad 5.3 mmHg RVOT Mean Gr. 2.40 mmHg PV Mean Grad 2.7 mmHg RVOT VTI 0.213 m PV VTI 0.241 m RVOT Vmax 1.05 m/s Tricuspid Valve TR Peak Grad 18.7 mmHg TR Vmax 2.16 m/s RA Pressure 3.00 mmHg RVSP (TR) 21.7 mmHg
== END 2022-08-03 00:24 ==
LOC: DI 00:04
PROVIDERS: PCP Student in an Organized Health Care Education/Training Program; Visit Provider Student in an Organized Health Care Education/Training Program
DX: E05.90 Thyrotoxicosis, unspecified without thyrotoxic crisis or storm (principal); R00.9 Unspecified abnormalities of heart beat; R06.09 Other forms of dyspnea; Z82.49 Family history of ischemic heart disease and other diseases of the circulatory system; Z87.891 Personal history of nicotine dependence; Z78.0 Asymptomatic menopausal state
CPT/HCPCS: 77080; 93306

== ENCOUNTER 2022-08-09 02:08 | Outpatient (CLI) | payer BC, SELFPAY ==
[2022-08-09 12:58] LABS: ALT 76 U/L (14-59); AST 41 U/L (15-37); Albumin 3.8 g/dL (3.4-5.0); Alkaline Phosphatase 127 U/L (46-116); Anion Gap 7.7 mmol/L (3-11); BUN 31 mg/dL (7-18); Bilirubin, Direct 0.1 mg/dL (0.0-0.2); Bilirubin, Total 0.5 mg/dL (0.2-1.0); CO2 27.3 mmol/L (21.0-32.0); CREATININE 0.6 mg/dL (0.55-1.02); Calcium 9.2 mg/dL (8.5-10.1); Chloride 105 mmol/L (98-107); Estimated GFR 101.42 (mL/min/1.73m2); Glucose 105 mg/dL (74-106); Potassium 4.1 mmol/L (3.5-5.1); Sodium 140 mmol/L (136-145); Total Protein 7.1 g/dL (6.4-8.2)
[2022-08-09 13:46] LABS: Vitamin D 25 Total 52.3 ng/mL (30-100)
== END 2022-08-09 02:09 | disposition home or self-care (01) ==
LOC: LBO 02:08
PROVIDERS: PCP Student in an Organized Health Care Education/Training Program; Visit Provider Student in an Organized Health Care Education/Training Program
DX: E06.0 Acute thyroiditis; Z79.899 Other long term (current) drug therapy; R79.89 Other specified abnormal findings of blood chemistry; E05.00 Thyrotoxicosis with diffuse goiter without thyrotoxic crisis or storm; M81.0 Age-related osteoporosis without current pathological fracture
CPT/HCPCS: 36415; 80048; 80076; 82306

== ENCOUNTER 2022-10-30 11:21 | Day surgery (SDC) | payer BC, SELFPAY ==
[2022-10-30] VITALS (8 sets, daily range): BP systolic 118–139; BP diastolic 62–81; PULSE 44–50; RESP 14–18; TEMP 36.4–36.5; O2SAT 99–100; BMI 23.8
[2022-10-30] MEDS: Lactated Ringers 1,000 ML 80 ML IV (11:57)
--- NOTE | 2022-10-30 11:57 | ANES.PREOP_ITS ---
General Info Date of Service Date Performed: 10/30/22 Height: 5 ft 1.5 in Weight: 58.3 kg Body Mass Index (BMI): 23.8 Surgical Procedure: Operation Date: 10/30/22 13:10 Proposed Procedure Side Surgeon p Wrist Trapezial Arthroplasty Right Bal Anderson MD Meds Allergies and Home Medications Allergies Allergy/AdvReac Type Severity Reaction Status Date / Time codeine AdvReac Severe vomiting Verified 10/30/22 11:36 hydrocodone bitartrate AdvReac Severe n/v Verified 10/30/22 11:36 [From Vicodin] meperidine HCl [From Demerol] AdvReac Severe n/v Verified 10/30/22 11:36 buspirone AdvReac Intermediate Other (See Verified 10/30/22 11:36 Comment) melatonin AdvReac Intermediate very Verified 10/30/22 11:36 irritable paroxetine AdvReac Intermediate sleep Verified 10/30/22 11:36 issues, hot flashes scopolamine AdvReac Intermediate disorientat Verified 10/30/22 11:36 ion Home Medication Medication Instructions Recorded omega-3 360 wu-vkr-bnb-fish oil 1 ea PO HS 04/16/16 1,200 mg capsule,delayed release tretinoin 0.1 % topical cream 1 applic topical QHS 09/08/18 tumeric 1 tab PO DAILY 10/28/18 escitalopram oxalate 5 mg tablet 7.5 mg PO DAILY #135 tabs 01/10/22 gabapentin 300 mg capsule 300 mg PO DAILY sciatica (calf) 06/12/22 #90 caps ibuprofen 600 mg tablet 600 mg PO TID PRN arthritis pain 06/12/22 #60 tabs methimazole 10 mg tablet 15 mg PO DAILY 09/24/22 atenolol 25 mg tablet 25 mg PO DAILY #90 tabs 10/15/22 Current Visit Medications: Current Medications Generic Name Dose Route Start Last Admin Trade Name Freq PRN Reason Stop Dose Admin Acetaminophen 1,000 mg 10/30/22 06:00 Acetaminophen 500 Mg Tab PO 10/30/22 18:00 PREOP MARIUM Celecoxib 400 mg 10/30/22 06:00 Celecoxib 200 Mg Cap PO 10/30/22 18:00 PREOP MARIUM Ringer's Solution 1,000 mls @ 80 mls/hr 05/09/23 06:00 IV 11/28/22 23:59 INFUSION MARIUM Cefazolin Sodium/Dextrose 2 gm in 50 mls @ 100 mls/hr 10/30/22 06:00 Ancef Duplex IVPB 10/30/22 16:00 PREOP MARIUM IV Miscellaneous Supplies 1 each 10/30/22 06:00 Iv Access IV 11/28/22 23:59 DIRECTED MARIUM Sodium Chloride 0 ml 10/30/22 06:00 Normal Saline Flush 10 Ml Syr IV 11/28/22 23:59 PRN PRN Sodium Chloride 0 ml 10/30/22 06:00 Normal Saline 10 Ml Vial IJ 11/28/22 23:59 DIRECTED PRN Sterile Water 0 ml 10/30/22 06:00 Water,Injection,Sterile 10 Ml Vial IJ 11/28/22 23:59 DIRECTED PRN PFSH Active Problems Active Problems: Problem Status Onset Code Other osteoporosis 08/03/22 M81.8 Graves' disease E05.00 Hyperthyroidism E05.90 Dyspnea on minimal exertion R06.09 Abnormal heart rate R00.9 Hot flash not due to menopause R23.2 Vomiting R11.10 Diarrhea R19.7 Alcohol abuse, 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 Anxiety F41.9 Former cigarette smoker Z87.891 Elevated blood pressure reading without diagnosis of hypertension R03.0 Chronic night sweats R61 Poor sleep Z72.820 Osteoarthritis of left knee M17.12 Lumbar radiculopathy, chronic ~07/2021 M54.16 Osteoarthritis of carpometacarpal (CMC) joint of right thumb M18.11 Stress due to illness of family member Z63.79 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 recovered, but wondering if lingering effects? AND high anxiety/worry about having passed it along to her who has immun-def cond and required ICU. Dyspareunia Family history of cardiac arrest Hx of scoliosis Lentigines Longitudinal melanonychia R [place] [facility] [place]phrolithiasis Other seborrheic keratosis Solar lentiginosis 09[place] [facility] [place] Vest[place] dysfunction Medical History Comments:: hx of previouse complication from anesthesia - awakes violent. pt. requested to use only Propofol for anesthesia Surgical History Surgical History Arthroplasty of knee (04/20/16) LEFT/DR. PANDYA H/O colonoscopy (~06/24/09) History of esophagogastroduodenoscopy (EGD) (~06/24/00) History of total right hip replacement (04/11/21) S/P left knee arthroscopy (~04/20/16) w/Limited chondroplasty medial femoral condyle, medial tibial plateau and patella. S/P rotator cuff repair (~04/2012) right Trigger thumb of right hand Depo-Medrol injection: 02/10/2021 s/p right trigger thumb release DOS: 10/10/2021 Tobacco Smoking/Tobacco Use Status: Current every day Tobacco Type: e-cigarettes Alcohol Alcohol Intake: former Year quit: 1993 Details: no ETOH for 25 yrs Substance Use Substance use: Daily Substance use type: marijuana Details: not DOS Vital Signs and Lab Results Vital Signs Most Recent Vital Signs in EMR: Most Recent Vital Signs Temp Pulse Resp BP Pulse Ox 36.4 C L 50 L 17 133/81 99 10/30/22 11:39 10/30/22 11:39 10/30/22 11:39 10/30/22 11:39 10/30/22 11:39 Lab Results Blood Type / Crossmatch: No Data to Display Complete Blood Count: No Data to Display Complete Metabolic Panel: No Data to Display Liver Function Panel: No Data to Display Coagulation Panel: No Data to Display Cardiac Panel: No Data to Display Arterial Blood Gas: No Data to Display Venous Blood Gas: No Data to Display Pancreas Panel: No Data to Display Thyroid Panel: No Data to Display Infectious Disease: No Data to Display Blood Cultures: No Data to Display Toxicology Panel: No Data to Display Imaging and Studies Imaging and Studies Study information below may be from another EMR and interpreted by another provider. Please see original notes in EMR for more complete details. Echocardiogram Summary: Patient Name: Mary Lou Bruno #: [id number]: DI Ordering Provider: HenriettaParadise DOAccount #: [id number]: REG CLI Primary Care Provider: Paradise Shrestha DODate of Exam: 08/03/22Sex: F Admission Date: 08/03/22 : 1960 Age: 61 APPROVED REPORT EXAM: Comprehensive 2D, Doppler, and color-flow Echocardiogram Patient Location: Out-Patient [employer] Sales Representative: Paola Barajas RDCS (AE) Indications: Evaluate heart function, Dyspnea f/h of heart disease, abnormal heart rhythm, graves disease Other Information Study Quality: Good Conclusion Normal left ventricular wall thickness and chamber size. Estimated ejection fraction is 60 to 65%. Wall motion is normal Right ventricular size and systolic function Both atria are normal in size Aortic valve is trileaflet with trace regurgitation Estimated right ventricular systolic pressure is 22 mmHg Mildly dilated ascending aorta Wall motion Left Ventricle The left ventricle is normal size. The left ventricular systolic function is normal. The left ventricular ejection fraction is within the normal range. There is normal left ventricular wall thickness. There is normal LV segmental wall motion. There is no ventricular septal defect visualized. LVEF is 60-65%. Right Ventricle The right ventricle is normal size. The right ventricular systolic function is normal. The RVSP is 21.7 mmHg. Atria The left atrium size is normal. The right atrium size is normal. The interatrial septum is intact with no evidence for an atrial septal defect. Aortic Valve The aortic valve is normal in structure. Aortic valve is trileaflet. There is no aortic valvular stenosis. Trace aortic regurgitation. Mitral Valve The mitral valve is normal in structure. No evidence of mitral valve stenosis. Trace mitral regurgitation. Tricuspid Valve The tricuspid valve is normal in structure. There is no tricuspid valve stenosis. Trace tricuspid regurgitation. Pulmonic Valve The pulmonary valve is normal in structure. There is no pulmonic valvular stenosis. Trace pulmonic regurgitation. Great Vessels The aortic root is normal in size. The ascending aorta is mildly dilated. Aortic arch is normal in caliber. IVC is normal in size and collapses >50% with inspiration. Pericardium There is no pericardial effusion. 2D Dimensions IVSD d PLAX 0.93 cm F: 0.6-1.0LV Vol A2C d MOD 101.4 mL LVPW d PLAX 0.94 cm F: 0.6 - 1.0LV Vol A4C d MOD 83.4 mL LVID d PLAX 4.50 cm F: 3.8 - 5.2LA vol/ BSA A2C s A-L37.4 mL/m2 LVDs 2.80 cm F: 2.2 - 3.5LA vol/ BSA A4C s A-L31.2 mL/m2 Ao Root d 3.02 cm F: 2.7 - 3.3LA Vol/ BSA Biplane s A-L 34.9 mL/m2 RA Area A4C12.67 cm2LA Area A4C s MOD 17.64 cm2 RA Vol/ BSA A4C s A-L 17.1 mL/m2LA Area A2C s MOD 19.71 cm2 Ao Asc Diam d 3.47 cm F: 2.3 - 3.1LV EF A4C MOD 65.8 % LV EF Teichholz 67.9 %LV EF A2C MOD 59.7 % LVEF (Velarde's)62.15 % F: 54 - 74LV EF Biplane MOD 62.2 % LV Qxcbif54.49 mL F: 46 - 901WT77.27 mL LV Volume Index50.64 mL/m2 F: 29 - 61SV Index38.06 mL/m2 LV Vol Biplane MOD 93.8 mL FS37.70 % M-Mode TAPSE 1.98 cm (M/F) >1.7 LV Diastology MV E' medial0.093 (>0.07 m/s)E/A Ratio 0.8 LV E/e MED6.75 (<14)MV E Vmax 0.63 (0.4-1.3 m/s) MV E' lateral0.134 (>0.1 m/s)MV A Vmax 0.80 (0.4-1.3 m/s) LV E/e LAT4.70 (<14)MV E/A Ratio 0.76 MV E/E' medial 6.77 MV E/E' lateral4.70 Aortic Valve LVOT Area3.17 cm2AoV Area Vmax2.76 cm2 LVOT Vmax 1.55 m/sAoV Area/ BSA (Vmax)1.80 cm2/m2 LVOT Mean Eloy.0.98 m/sAVA Mean Eloy.2.61 cm2 LVOT Peak Grad 9.7 mmHgAVA Mean Eloy. Index1.70 cm2/m2 LVOT Mean Grad 4.6 mmHg LVOT VTI0.316 m LVOT Diam s 2.00 cm AoV Vmax1.79 m/s Velocity Ratio 0.87 AoV Mean Eloy.1.19 m/s AoV Peak Grad12.8 mmHg LVOT SV 100.37 mL AoV Mean Grad6.5 mmHg AoV VTI0.330 m AoV Area VTI3.04 cm2 AoV Area/ BSA (VTI)1.98 cm/m2 Mitral Valve MV DT 285 (160-240 msec) MV PHT83 msec MV Area PHT 2.67 cm2 MV VTI 0.281 m MV Area VTI 3.57 (4.0-6.0 cm2) Pulmonary Valve PV Vmax 1.15 (0.5-1.5 m/s)RVOT Peak Gr.4.43 mmHg PV Peak Grad 5.3 mmHgRVOT Mean Gr.2.40 mmHg PV Mean Grad 2.7 mmHgRVOT VTI0.213 m PV VTI 0.241 mRVOT Vmax 1.05 m/s Tricuspid Valve TR Peak Grad 18.7 mmHgTR Vmax 2.16 m/s RA Pressure 3.00 mmHg RVSP (TR) 21.7 mmHg Ordered By: Paradise Shrestha DO CC: Dictated By: Maryann Meredith M.D. 08/03/22 140 <Electronically signed by Maryann Meredith M.D. in OV> 08/03/22 2245 Transcribed By: Maryann Meredith MD This is privileged, confidential information intended only for the provider named. Any use or distribution by any person other than this provider is strictly prohibited. If you receive this report in error, please notify us immediately at [phone] and return the original report to us at the address above. Thank-you. Anesthesia Assessment and Plan Anesthesia History Personal History: No History of Anesthesia Complications Family History: No Family History of Anesthesia Complications Exercise Tolerance Exercise Tolerance: Metabolic Equivalents>4 Pertinent Negatives Pertinent Negatives: No Symptoms of GERD, No Major Cardiovascular Symptoms or Complaints, No Major Pulmonary Symptoms or Complaints and No History of CVA/TIA Cardiac & Pulmonary Exam Cardiac Exam: Normal S1/S2 Heart Sounds Pulmonary Exam: Clear Bilateral Breath Sounds Implantable Cardiac Device Does patient have a Pacemaker or an ICD?: No Airway Exam Known Difficult Airway: No Mallampati Class: 1 Mouth Opening: Normal (> 3cm) Thyromental Distance: Greater than 3 cm Neck Range of Motion: Full ROM Neck Circumference: Normal Teeth Condition: Normal Dentition ASA Classification ASA Score: ASA 2 Emergency Case?: No NPO Status NPO Status: NPO Clears >2 hours, Solids >8 hours Anesthesia Plan Resuscitation Status: Full Code Anesthesia Technique: General Anesthesia Airway Planned: Endotracheal Tube Monitors Used: Standard Monitors
--- NOTE | 2022-10-30 12:15 | DI.RAD_ITS ---
Exam(s) XR WRIST RT LIMITED EXAM: XR WRIST RT LIMITED CLINICAL HISTORY: Osteoarthritis of (CMC) joint of right thumb/wrist. TECHNIQUE: 2D digital imaging was performed. COMPARISON: No exams were available for comparison FINDINGS: Fluoroscopy is provided during orthopedic procedure on 1st carpometacarpal joint. See procedure report for details. Total fluoroscopy time 2 seconds IMPRESSION: Radiation exposure index/cumulative dose: Ka,r= 0.0060 mGy DATA REPOSITORY: RADIATION DOSE DELIVERED:
[2022-10-30] MEDS: Acetaminophen 500 MG TAB 1000 MG PO (12:25)
[2022-10-30] MEDS: Celecoxib 200 MG CAP 400 MG PO (12:25)
--- NOTE | 2022-10-30 13:00 | W.PREOPHP ---
Assessment and Plan Assessment and plan (1) Osteoarthritis of carpometacarpal (CMC) joint of right thumb: Status: Acute Assessment and plan: Mary Lou is a 62-year-old who has known arthritis about the right thumb CMC joint. She has failed a host of nonoperative options and is here today for thumb CMC arthroplasty with suture suspension plasty. I reviewed the technical features of the case. Discussed the necessary time for rehabilitation. This was reviewed in the office previously as well. Once again, discussed the risk of the procedure to include bleeding, infection, pain, stiffness, thumb subsidence, adjacent arthritis, damage to nerves and vessels, hardware prominence or failure, need for repeat procedures. Despite these risks, she elects to proceed. History of Present Illness History of Present Illness Chief Complaint: Right thumb CMC arthritis Narrative: Mary Lou is a 62-year-old who has known arthritis about the right thumb CMC joint. Please the previous office note for complete detailed history. She has tried a host of nonoperative options but unfortunately has continued to have pain about the right thumb with all activities given the persistent pain and the arthritis on the x-rays I did offer CMC arthroplasty. She is here today for that procedure. She denies any recent changes to her health except for the known diagnosis of Graves' disease which is currently being well treated and managed. Review of Systems All systems reviewed & are unremarkable except as noted in HPI and below PFSH All Active Problems Other osteoporosis (Acute 08/03/22) UNSPECIFIED PATHOLOGICAL FX PRESENCE PER [facility] [place] [place] Graves' disease (Acute) Low TSH; High T4, T3. [HYPOTHyroid Ab NEG, ordered in error due to mis-comm w/ lab]. Probable Graves DDx, ik [ ] Endo Hyperthyroidism (Chronic) Surprisingly low TSH (< 0.01), with high T4; re-checking.. Repeat low TSH; High T4, T3. Probable Graves DDx, ik [ ] Endo Dyspnea on minimal exertion (Acute) Abnormal heart rate (Acute) Hot flash not due to menopause (Acute) Thought to be perimenopausal, but possible hyperthyroid Vomiting (Acute) May 2022, resolved @ 5 days Diarrhea (Acute) May 2022, resolved @ 5 days Alcohol abuse, in remission (Chronic) 27 yrs sober, 05/24/22, trae Anxiety (Chronic) Long Hx, in hindsight.. with probable PTSD+ (Fam Hx Alcohol Overuse) Former cigarette smoker (Chronic) 40+ pk yrs, quit [address] Screening, following 3mm nodule. Elevated blood pressure reading without diagnosis of hypertension (Acute) Elevated BP, inc frequency, 05/24/22, ik MONITORING .. Possible assoc with new finding of HYPERthyroidism. Chronic night sweats (Chronic) Started @ 35yo, no relief pre/post menopause or with meds/hrt so far [maybe mild relief with compounded HRT years ago w/ [facility]].. Poor sleep (Chronic) Presumed 2' hot flashes/sweating, exacerbated by anxiety (GHASSAN? 's health?) Osteoarthritis of left knee (Acute) Depo Medrol 12/11/21 Lumbar radiculopathy, chronic (Acute ~07/2021) Osteoarthritis of carpometacarpal (CMC) joint of right thumb (Acute) Steroid injection: 04/16/2022; 12/11/2021 Stress due to illness of family member (Acute) Situational mixed anxiety and depressive disorder (Acute) Situational anxiety (Acute) Medical History At risk for osteoporosis HyperThyr;SmkgHx; Ashia; (+) WTLifting++ Benign nevus of skin Carpal tunnel syndrome (06/11/13) COVID-19 in early 2021? recovered, but wondering if lingering effects? AND high anxiety/worry about having passed it along to her who has immun-def cond and required ICU. Dyspareunia Family history of cardiac arrest Hx of scoliosis Lentigines Longitudinal melanonychia R Great toe, 09/04/18 [facility] [place] [place] Dermatology Nephrolithiasis Other seborrheic keratosis Solar lentiginosis 09/04/18 [facility] [place] [place] Derm Vestibular dysfunction Surgical History Arthroplasty of knee (04/20/16) LEFT/DR. PANDYA H/O colonoscopy (~06/24/09) History of esophagogastroduodenoscopy (EGD) (~06/24/00) History of total right hip replacement (04/11/21) S/P left knee arthroscopy (~04/20/16) w/Limited chondroplasty medial femoral condyle, medial tibial plateau and patella. S/P rotator cuff repair (~04/2012) right Trigger thumb of right hand Depo-Medrol injection: 02/10/2021 s/p right trigger thumb release DOS: 10/10/2021 Family History Father Heart disease Hypertension Mother Hypertension Stroke Maternal Grandfather Heart disease Arthritis Paternal Grandmother Heart disease Maternal Grandmother Arthritis Social History Smoking/Tobacco Use Status: Current every day Tobacco Type: e-cigarettes Smoking risk assessment performed?: Yes Alcohol Intake: former Year quit: 1993 Details: no ETOH for 25 yrs Drug use: Daily Substance use type: marijuana Details: not DOS Household members: spouse Housing: house Number of Children: 0 Communication Needs: None current occupation: retired Current gender identity: female What is your relationship status?: Panel score (0-1 are the most socially isolated patients): 1 What type of physical activity do you participate in: regular exercise Frequency: 3-4 times per week Seatbelt use: always Helmet use: Yes Drive intox or ride w/intox spotter driver: No Working smoke detector in home: Yes Carbon monox detector in home: Yes Firearms in home: Yes Firearms unloaded and locked: Yes Do you feel safe at home: Yes Do you feel safe in your relationship?: Yes Meds Allergies and Home Medications Allergies Allergy/AdvReac Type Severity Reaction Status Date / Time codeine AdvReac Severe vomiting Verified 10/30/22 11:36 hydrocodone bitartrate AdvReac Severe n/v Verified 10/30/22 11:36 [From Vicodin] meperidine HCl [From Demerol] AdvReac Severe n/v Verified 10/30/22 11:36 buspirone AdvReac Intermediate Other (See Verified 10/30/22 11:36 Comment) melatonin AdvReac Intermediate very Verified 10/30/22 11:36 irritable paroxetine AdvReac Intermediate sleep Verified 10/30/22 11:36 issues, hot flashes scopolamine AdvReac Intermediate disorientat Verified 10/30/22 11:36 ion Home Medications Medication Instructions Recorded Confirmed Type omega-3 360 vy-xzi-ahq-fish oil 1 ea PO HS 04/16/16 10/30/22 History 1,200 mg capsule,delayed release tretinoin 0.1 % topical cream 1 applic topical QHS 09/08/18 10/30/22 History tumeric 1 tab PO DAILY 10/28/18 10/30/22 History escitalopram oxalate 5 mg tablet 7.5 mg PO DAILY #135 tabs 01/10/22 10/30/22 Rx gabapentin 300 mg capsule 300 mg PO DAILY sciatica (calf) 06/12/22 10/30/22 Rx #90 caps ibuprofen 600 mg tablet 600 mg PO TID PRN arthritis pain 06/12/22 10/30/22 Rx #60 tabs methimazole 10 mg tablet 15 mg PO DAILY 09/24/22 10/30/22 History atenolol 25 mg tablet 25 mg PO DAILY #90 tabs 10/15/22 10/30/22 Rx Exam Resp Auscultation: clear to auscultation bilaterally Cardio Rate: regular rate Rhythm: regular rhythm Results Last Vital Signs Temp 36.4 C L 10/30/22 11:39 Pulse 50 L 10/30/22 11:39 Resp 17 10/30/22 11:39 BP 133/81 10/30/22 11:39 Pulse Ox 99 10/30/22 11:39
[2022-10-30] MEDS: ceFAZolin 2 GM/50 ML BAG IVPB (13:08)
[2022-10-30] MEDS: Bupivacaine 0.5% Pres-Free 30 ML VIAL (14:05)
--- NOTE | 2022-10-30 14:21 | W.PM.DSUDISC ---
Date of service: 10/30/22 Time of Service: 14:22 Discharge Plan Disposition Patient Disposition: Home Condition: Good Discharge Details Reason For Visit: Right Thumb CMC Arthritis Attending Provider: Bal Anderson Primary Care Provider: Hira Méndez Home Meds and New Rx's Prescriptions: New acetaminophen 500 mg tablet 1,000 mg PO Q8H PRN (Reason: pain) Qty: 90 3RF ibuprofen 600 mg tablet 600 mg PO TID PRN (Reason: pain) Qty: 60 3RF ibuprofen 600 mg tablet 600 mg PO TID PRN (Reason: pain) Qty: 60 3RF Continued escitalopram oxalate 5 mg tablet 7.5 mg PO DAILY Qty: 135 2RF gabapentin 300 mg capsule 300 mg PO DAILY Qty: 90 3RF tumeric 500 mg tablet 1 tab PO DAILY tretinoin 0.1 % cream 1 applic TP QHS methimazole 10 mg tablet 15 mg PO DAILY Patient Comments: 07/19/22 : prescribed by [facility] [place] endo for 90 tabs w/ 3 rf's atenolol 25 mg tablet 25 mg PO DAILY Qty: 90 3RF omega 7-ysf-nwx-fish oil 1 EACH capsule,delayed release(DR/EC) 1 ea PO HS Discontinued ibuprofen 600 mg tablet 600 mg PO TID PRN (Reason: arthritis pain) Qty: 60 3RF Discharge Instructions Additional Instructions: Thumb CMC Discharge Instructions Activity: You should keep the hand/thumb elevated as much as possible for the first few days. You may use the other fingers as tolerated but avoid trying to do too much too soon. You may perform light activities with the splint in place. Dressing/Cast: Your splint should stay in place at all times. Do NOT get it wet. You may loosen the PAULA wrap if you feel it is too tight and then rewrap more loosely. Medications: - You should take Tylenol and Ibuprofen for baseline pain control. - You may apply ice over the thumb. Follow-up: 10-14 days Stand Alone Forms: Anesthesia Discharge Shante Aparicio (DSU) Equipment/Supplies: Sling Activity:: Elevate Remove Dressings/Wound Care:: Do Not Remove Shower/Bathe:: Cover Diet:: As Tolerated Discharge Orders Discharge Orders: Discharge Order (Routine); Ordered 10/30/22 Ordered By: Bal G Prohaska DS: Diagnosis Discharge Diagnosis (1) Osteoarthritis of carpometacarpal (CMC) joint of right thumb: Status: Acute
--- NOTE | 2022-10-30 14:54 | W.ANESPOSTOP ---
Postoperative Evaluation Date, Time and Location Date Performed: 10/30/22 Time Performed: 14:55 Patient Location: Day Surgery Unit Vital Signs Most Recent Imported Vital Signs: Most Recent Vital Signs Temp Pulse Resp BP Pulse Ox 36.5 C 47 L 14 120/62 99 10/30/22 14:40 10/30/22 14:45 10/30/22 14:45 10/30/22 14:45 10/30/22 14:45 Pain Score Most Recent Pain Score: Most Recent Pain Score Pain Level 0 10/30/22 14:45 Assessment Mental Status: Awake (Alert & Oriented to Patient Baseline) Airway and Respiratory Function: Patent airway with normal (patient baseline) respiratory exam Cardiovascular Function: Hemodynamically Stable Hydration Status: Adequately Hydrated Nausea & Vomiting: No Nausea or Vomiting Pain: Pt. Denies Any Pain Peripheral Nerve Block: Patient did not receive a nerve block
--- NOTE | 2022-10-31 06:15 | ROE_ITS ---
Date of service: 10/30/22 Time of Service: 14:30 Operative Note Operative Note DATE OF PROCEDURE: 10/30/22 PRE-OP DIAGNOSIS: Right Thumb CMC Arthritis POST-OP DIAGNOSIS: same PROCEDURE: Right trapezial resection arthroplasty with suture suspensionplasty SURGEON: Bal Anderson SCHOLARSHIP COUNSELOR: Faustina Aggarwal ANESTHESIA TYPE: General LMA/ETT Refer to Anesthesia Record ESTIMATED BLOOD LOSS: 10 PATHOLOGY: none sent TOURNIQUET TIME: 45 COMPLICATIONS: None Patient was transported to: PACU Patient's condition: stable Indications: Mary Lou is a 62-year-old female who has had symptoms of thumb CMC arthritis with pain and decreased mobility. Nonoperative treatment options had been trialed. Given their failure, I offered operative intervention. I reviewed the technical details. I reviewed the risk of the procedure to include bleeding, infection, pain, stiffness, instability, subsidence, damage to neighboring arteries, damage to the superficial radial nerve, and weakness. Despite these risks, the patient elected to proceed. Findings: There is notable arthrosis between the trapezium and the first metacarpal. There is notable loss of cartilage, some spurring and deformity of the trapezium. Procedure Description: Mary Lou was greeted in the preoperative holding area. Name and surgical site were confirmed. The history and physical was completed. The consent was reviewed the patient and signed. She was taken back to the operating room. The patient was placed and monitored anesthesia care. The right was then prepped with ChloraPrep and draped in a standard fashion after a nonsterile tourniquet was placed high up onto the arm. Prophylactic antibiotics in the form of cefazolin were administered. A timeout was performed for safe surgery. The surgical site was drawn on the skin overlying the dorsal radial border of the wrist. The planned surgical field was anesthetized with 0.5% bupivacaine. The limb was exsanguinated and the tourniquet was inflated where it stayed for 45 minutes. A 3 cm incision was made longitudinally over the radial wrist from the level of the radial styloid to just past the base of the first metacarpal. The skin was incised only. The deep tissue and subcutaneous fat was dissected with a tenotomy scissors trying to protect branches of the superficial radial nerve. Any branches that were identified were retracted out of the way. The first compartment extensor tendons were then identified. The first extensor compartment was released including a soft compartment for the EPB tendon. The interval between EPL and EPB was identified. The base of the first metacarpal was palpated. A needle was placed into the joint between the first metacarpal and the trapezium. A single x-ray was used to confirm appropriate positioning. The capsule of the trapezium was then incised. The radial border of the bone was identified. Soft tissues around trapezium were dissected bluntly to allow relaxation of vital arterial structures traversing the trapeziu m. Using a [place] blade the capsule was elevated off the trapezium in a subperiosteal fashion. Once it appeared to have all the capsular attachments released, the trapezium was then removed using a rongeur. The wound was inspected to make sure all portions of the trapezium were removed. The wound was then thoroughly irrigated. Using a 2-0 FiberWire then performed a suture suspensionplasty. This was done by incorporating capsule and attachments of the APL at the base of the first metacarpal and creating a sling connected to the deep flexor carpi radialis tendon seen traversing deep within the wound towards the second metacarpal. This was done twice to create a crossing network of 2-0 suture. This was then tied overlying the base of the first metacarpal making sure not to over tighten and hourglass the tendons. This provided support to the first metacarpal to prevent any excessive subsidence. The tourniquet was then released. There is no significant bleeding. The capsule of the trapezium was then reapproximated with a 2-0 Vicryl. The skin was closed with subcuticular 4-0 Monocryl, reinforced with skin glue. The hand was dressed with 4 x 4's, Kerlex and PAULA to create a soft, thumb spica splint. All counts were correct. Patient was transferred back to PACU in a stable condition.
== END 2022-10-30 15:39 | disposition home or self-care (01) ==
PROVIDERS: PCP Family Medicine; Visit Provider Student in an Organized Health Care Education/Training Program
PROC: (CPT 25447; principal; 2022-10-30 13:15)
DX: M18.11 Unilateral primary osteoarthritis of first carpometacarpal joint, right hand (principal)
CPT/HCPCS: 25447; 73100; J0690; J1100; J2250; J2405; J3475

== ENCOUNTER 2024-03-02 11:32 | Outpatient (CLI) | payer BC, SELFPAY ==
--- NOTE | 2024-03-02 08:45 | DI.RAD_ITS ---
Exam(s) XR HIP LT COMPLETE AP PELVIS EXAM: XR HIP LT COMPLETE AP PELVIS CLINICAL HISTORY: left hip DJD. TECHNIQUE: 2D digital imaging was performed. Two views. COMPARISON: CR XR HIP RT AP LAT ONLY from 04/16/2022 CR XR DEXA BONE DENSITY W/WO LAUREEN from 08/03/2022 FINDINGS: BONES: No acute fracture is present. No bony destructive lesion is seen. JOINTS: No dislocation present. Moderate narrowing of the left hip joint space. Periarticular spur ring and sclerosis. Right hip prosthesis appears unchanged. SOFT TISSUE: Normal. IMPRESSION: Moderate degenerative changes the left hip. DATA REPOSITORY: RADIATION DOSE DELIVERED:
== END 2024-03-02 11:33 | disposition home or self-care (01) ==
LOC: DIORS 11:34
PROVIDERS: PCP Family Medicine; Visit Provider Physician Assistant
DX: M16.12 Unilateral primary osteoarthritis, left hip (principal)
CPT/HCPCS: 73502

== ENCOUNTER 2024-03-30 02:22 | Outpatient (CLI) | payer BC, SELFPAY ==
[2024-03-30 10:16] LABS: Anion Gap 8.3 mmol/L (3-11); BUN 18 mg/dL (7-18); CO2 29.7 mmol/L (21.0-32.0); CREATININE 0.9 mg/dL (0.55-1.02); Chloride 106 mmol/L (98-107); Estimated GFR 71.39 (mL/min/1.73m2); Glucose 110 mg/dL (74-106); Potassium 3.9 mmol/L (3.5-5.1); Sodium 144 mmol/L (136-145)
[2024-03-30 10:24] LABS: HCT 44.8 % (36.0-46.0); HGB 14.4 g/dL (11.2-15.7); MCH 30.2 pg (27.0-33.0); MCHC 32.1 % (32.0-36.0); MCV 94 fL (80-95); Platelet Count 188 10^3/uL (130-400); RBC 4.77 10^6/uL (3.93-5.22); RDW 12.5 % (11.7-14.6); RDW-SD 43.4 fL; WBC 4.65 10^3/uL (4.4-10.8)
== END 2024-03-30 02:23 | disposition home or self-care (01) ==
LOC: LBO 02:22
PROVIDERS: PCP Family Medicine; Visit Provider Student in an Organized Health Care Education/Training Program
DX: M16.12 Unilateral primary osteoarthritis, left hip (principal); Z01.818 Encounter for other preprocedural examination
CPT/HCPCS: 36415; 80048; 85027

== ENCOUNTER 2024-03-30 10:21 | Outpatient (REF) | payer BC, SELFPAY ==
--- NOTE | 2024-03-30 09:45 | PAPFT_PTH ---
PATIENT: Mary Lou Bruno LOC: [facility] U#:[id number] AGE/SX: 63/F ROOM: RE03/30/[address]: Shanita Chanel DO : 1960 BED: DIS: 03/30/2024 SPEC #: [id number] RECD: 03/30/24 13:19 STATUS: ANA MARÍA REQ #: [id number] JIM: 03/30/24 09:[address]: Shanita Chanel DEPT: [facility] Cytology RECD BY: Odalis Durham ENTERED: 03/30/24 13:19 SP TYPE: PAPFT OTHR DR: Hira Méndez DO Tissues: 1 - CX/ENDOCX FOR PAP SMEARS Procedures: PAP THIN PREP/[facility] Screening HPV DNA PROBE Comments: [id number] (HPV 16 7 18/45)
== END 2024-03-30 10:22 | disposition home or self-care (01) ==
LOC: LBN 10:21
PROVIDERS: PCP Family Medicine; Visit Provider Obstetrics & Gynecology
DX: Z11.51 Encounter for screening for human papillomavirus (HPV) (principal); Z01.419 Encounter for gynecological examination (general) (routine) without abnormal findings
CPT/HCPCS: 88142; 87624

== ENCOUNTER 2024-04-01 08:23 | Day surgery (SDC) | payer BC, SELFPAY ==
[2024-04-01] VITALS (16 sets, daily range): BP systolic 101–141; BP diastolic 48–82; PULSE 48–65; RESP 11–67; TEMP 36–36.5; O2SAT 97–100; BMI 24.0
[2024-04-01] MEDS: Acetaminophen 500 MG TAB 1000 MG PO (09:07)
[2024-04-01] MEDS: Celecoxib 200 MG CAP 400 MG PO (09:07)
[2024-04-01] MEDS: Lactated Ringers 1,000 ML 80 ML IV (09:07)
[2024-04-01] MEDS: Gabapentin 300 MG CAP PO (09:08)
--- NOTE | 2024-04-01 09:11 | ANES.PREOP_ITS ---
General Info Date of Service Date Performed: 04/01/24 Height: 5 ft 1 in Weight: 57.7 kg Body Mass Index (BMI): 24.0 Surgical Procedure: Operation Date: 04/01/24 10:05 Proposed Procedure Side Surgeon p Hip Total Hip Anterior, Corail STD 125 Left Bal Anderson MD Meds Allergies and Home Medications Allergies Allergy/AdvReac Type Severity Reaction Status Date / Time codeine AdvReac Severe vomiting Verified 04/01/24 08:41 hydrocodone bitartrate (From AdvReac Severe n/v Verified 04/01/24 08:41 Vicodin) meperidine HCl (From Demerol) AdvReac Severe n/v Verified 04/01/24 08:41 buspirone AdvReac Intermediate Other (See Verified 04/01/24 08:41 Comment) melatonin AdvReac Intermediate very Verified 04/01/24 08:41 irritable paroxetine AdvReac Intermediate sleep Verified 04/01/24 08:41 issues, hot flashes scopolamine AdvReac Intermediate disorientat Verified 04/01/24 08:41 ion iodine AdvReac Unknown Unknown Verified 04/01/24 08:41 povidone-iodine (From AdvReac Unknown Unknown Verified 04/01/24 08:41 Betadine) Home Medication ?Medication ?Instructions ?Recorded tretinoin 0.1 % topical cream 1 applic topical QHS 09/08/18 abaloparatide (Tymlos) 80 mcg subcut DAILY 01/21/23 atorvastatin 20 mg tablet 20 mg PO DAILY 01/21/23 dimenhydrinate 50 mg tablet 50 mg PO Q8H PRN 01/21/23 (Dramamine) escitalopram oxalate 5 mg tablet 5 mg PO DAILY 08/26/23 cholecalciferol (vit D3) 1,000 1 tab PO DAILY 09/19/23 unit-vitamin K2 (MK4) 100 mcg tablet (K2 Plus D3) methimazole 10 mg tablet 12.5 mg PO DAILY 09/19/23 gabapentin 300 mg capsule 300 mg PO DAILY sciatica (calf) 01/14/24 #90 caps selenium 50 mcg tablet 50 mcg PO DAILY 03/30/24 magnesium PO 04/01/24 Current Visit Medications: Current Medications Generic Name Dose Route Start Last Admin Trade Name Freq PRN Reason Stop Dose Admin Acetaminophen 1,000 mg 04/01/24 06:00 04/01/24 09:07 Acetaminophen 500 Mg Tab PO 04/01/24 23:59 1,000 mg PREOP MARIUM Administration Celecoxib 400 mg 04/01/24 06:00 04/01/24 09:07 Celecoxib 200 Mg Cap PO 04/01/24 23:59 400 mg PREOP MARIUM Administration Gabapentin 300 mg 04/01/24 06:00 04/01/24 09:08 Gabapentin 300 Mg Cap PO 04/01/24 23:59 300 mg PREOP MARIUM Administration Ringer's Solution 1,000 mls @ 80 mls/hr 04/01/24 06:00 04/01/24 09:07 IV 04/01/24 23:59 80 mls/hr INFUSION MARIUM Administration Cefazolin Sodium/Dextrose 2 gm in 50 mls @ 100 mls/hr 04/01/24 06:00 Ancef Duplex IVPB 04/01/24 23:59 PREOP MARIUM Tranexamic Acid/Sodium Chloride 1,000 mg in 100 mls @ 600 mls/hr 04/01/24 06:00 IVPB 04/01/24 23:59 PREOP MARIUM IV Miscellaneous Supplies 1 each 04/01/24 06:00 Iv Access IV 04/01/24 23:59 DIRECTED MARIUM Sodium Chloride 0 ml 04/01/24 06:00 Normal Saline Flush 10 Ml Syr IV 04/01/24 23:59 PRN PRN Sodium Chloride 0 ml 04/01/24 06:00 Normal Saline 10 Ml Vial IJ 04/01/24 23:59 DIRECTED PRN Sterile Water 0 ml 04/01/24 06:00 Water,Injection,Sterile 10 Ml Vial IJ 04/01/24 23:59 DIRECTED PRN PFSH Active Problems Active Problems: Problem Status Onset Code Well woman exam with routine gynecological exam Acute Z01.419 Degenerative joint disease of left hip Acute M16.12 Arthritis of carpometacarpal (CMC) joint of left thumb Acute M18.12 Diplopia Chronic H53.2 Thyroid nodule Acute ~02/2023 E04.1 Vitamin D deficiency, unspecified Acute ~02/2023 E55.9 Arteriosclerotic cardiovascular disease Acute I25.10 De Quervain's tenosynovitis, left Acute M65.4 Exophthalmos Acute 09/17/22 H05.20 Other osteoporosis Acute 08/03/22 M81.8 Graves' disease Acute ~06/2022 E05.00 Dyspnea on minimal exertion Acute R06.09 Hot flash not due to menopause Acute R23.2 Abnormal heart rate Acute R00.9 Hyperthyroidism Chronic E05.90 Situational anxiety Acute F41.8 Situational mixed anxiety and depressive disorder Acute F43.23 Poor sleep Chronic Z72.820 Chronic night sweats Chronic R61 Stress due to illness of family member Acute Z63.79 Osteoarthritis of carpometacarpal (CMC) joint of right thumb Acute M18.11 Lumbar radiculopathy, chronic Acute ~07/2021 M54.16 Osteoarthritis of left knee Acute M17.12 Elevated blood pressure reading without diagnosis of hypertension Acute R03.0 Former cigarette smoker Chronic Z87.891 Anxiety Chronic F41.9 Alcohol abuse, 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 recovered, but wondering if lingering effects? AND high anxiety/worry about having passed it along to her who has immun-def cond and required ICU. Hx of scoliosis Lentigines Benign nevus of skin Other seborrheic keratosis Vestibular dysfunction Nephrolithiasis Dyspareunia Longitudinal melanonychia R Great toe, 09/04/18 [facility] Dermatology Solar lentiginosis 09/04/18 [facility] Derm Carpal tunnel syndrome (06/11/13) Medical History Comments:: hx of previous complication from anesthesia - awakes violent. pt. requested to use only Propofol for anesthesia Surgical History Surgical History History of total right hip replacement (04/11/21) Trigger thumb of right hand Depo-Medrol injection: 02/10/2021 s/p right trigger thumb release DOS: 10/10/2021 History of esophagogastroduodenoscopy (EGD) (~06/24/00) H/O colonoscopy (~06/24/09) S/P left knee arthroscopy (~04/20/16) w/Limited chondroplasty medial femoral condyle, medial tibial plateau and patella. S/P rotator cuff repair (~04/2012) right Arthroplasty of knee (04/20/16) LEFT/DR. PANDYA Tobacco Smoking/Tobacco Use Status: Current every day Tobacco Type: e-cigarettes Alcohol Alcohol Intake: former Year quit: 1993 Details: no ETOH for 25 yrs Substance Use Substance use: Daily Substance use type: marijuana Vital Signs and Lab Results Vital Signs Most Recent Vital Signs in EMR: Most Recent Vital Signs Temp Pulse Resp BP Pulse Ox 36.2 C L 60 67 H 131/67 98 04/01/24 08:44 04/01/24 08:44 04/01/24 08:44 04/01/24 08:44 04/01/24 08:44 Lab Results Blood Type / Crossmatch: No Data to Display Complete Blood Count: White Blood Count 4.65 10^3/uL (4.4-10.8) 03/30/24 09:42 Red Blood Count 4.77 10^6/uL (3.93-5.22) 03/30/24 09:42 Hemoglobin 14.4 g/dL (11.2-15.7) 03/30/24 09:42 Hematocrit 44.8 % (36.0-46.0) 03/30/24 09:42 Platelet Count 188 10^3/uL (130-400) 03/30/24 09:42 Complete Metabolic Panel: Sodium 144 mmol/L (136-145) 03/30/24 09:42 Potassium 3.9 mmol/L (3.5-5.1) 03/30/24 09:42 Chloride 106 mmol/L (98-107) 03/30/24 09:42 Carbon Dioxide 29.7 mmol/L (21.0-32.0) 03/30/24 09:42 BUN 18 mg/dL (7-18) 03/30/24 09:42 Creatinine 0.9 mg/dL (0.55-1.02) 03/30/24 09:42 Est GFR (CKD-EPI 2020) 71.39 (mL/min/1.73m2) 03/30/24 09:42 Calcium 10.0 mg/dL (8.5-10.1) 03/30/24 09:42 Glucose 110 mg/dL (74-106) H 03/30/24 09:42 Liver Function Panel: No Data to Display Coagulation Panel: No Data to Display Cardiac Panel: No Data to Display Arterial Blood Gas: No Data to Display Venous Blood Gas: No Data to Display Pancreas Panel: No Data to Display Thyroid Panel: No Data to Display Infectious Disease: No Data to Display Blood Cultures: No Data to Display Toxicology Panel: No Data to Display Imaging and Studies Imaging and Studies Study information below may be from another EMR and interpreted by another provider. Please see original notes in EMR for more complete details. Echocardiogram Summary: 07/2022: Indications: Evaluate heart function, Dyspnea f/h of heart disease, abnormal heart rhythm, graves disease Conclusion Normal left ventricular wall thickness and chamber size. Estimated ejection fraction is 60 to 65%. Wall motion is normal Right ventricular size and systolic function Both atria are normal in size Aortic valve is trileaflet with trace regurgitation Estimated right ventricular systolic pressure is 22 mmHg Mildly dilated ascending aorta Aortic Valve The aortic valve is normal in structure. Aortic valve is trileaflet. There is no aortic valvular stenosis. Trace aortic regurgitation. Mitral Valve The mitral valve is normal in structure. No evidence of mitral valve stenosis. Trace mitral regurgitation. Tricuspid Valve The tricuspid valve is normal in structure. There is no tricuspid valve stenosis. Trace tricuspid regurgitation. Pulmonic Valve The pulmonary valve is normal in structure. There is no pulmonic valvular stenosis. Trace pulmonic regurgitation. Great Vessels The aortic root is normal in size. The ascending aorta is mildly dilated. Aortic arch is normal in caliber. IVC is normal in size and collapses >50% with inspiration. Anesthesia Assessment and Plan Anesthesia History Personal History: Other Family History: No Family History of Anesthesia Complications Exercise Tolerance Exercise Tolerance: Metabolic Equivalents>4 Cardiac & Pulmonary Exam Cardiac Exam: Normal S1/S2 Heart Sounds Pulmonary Exam: Clear Bilateral Breath Sounds Implantable Cardiac Device Does patient have a Pacemaker or an ICD?: No Airway Exam Known Difficult Airway: No Mallampati Class: 1 Mouth Opening: Normal (> 3cm) Thyromental Distance: Greater than 3 cm Neck Range of Motion: Full ROM Neck Circumference: Normal Teeth Condition: Normal Dentition ASA Classification ASA Score: ASA 2 Emergency Case?: No NPO Status NPO Status: NPO Clears >2 hours, Solids >8 hours Anesthesia Plan Resuscitation Status: Full Code Anesthesia Technique: Spinal Anesthesia Airway Planned: Natural Airway Monitors Used: Standard Monitors Preoperative Comments:: 63 yo female with sensitivities to many drugs for JUAN RAMON. Concerned about her iodine sensitivity it blocks the methimazole. Sig PMHx: dyspnea, thyroid nodule/graves (followed by David at [facility]. abaloparatide, methimazole), scoliosis/lumbar radiculopathy, anxiety/depression (escitalopram), e-cig, daily cannabis. ECHO: LVEF 60-65%, trace AR. Denies GERD Appropriately NPO, currently hungry. Previous Anes: - hand arthroplasty, prop, LMA 4, no issues. - JUAN RAMON, 1.2 heavy, prop sedation, no issues.
--- NOTE | 2024-04-01 10:39 | PDOC.DSDIS_ITS ---
Date of service: 04/01/24 Time of Service: 10:39 Discharge Plan Disposition Patient Disposition: Home Condition: Good Discharge Details Reason For Visit: L THR Attending Provider: Bal Anderson Primary Care Provider: Hira Méndez Home Meds and New Rx's Prescriptions: New acetaminophen 500 mg tablet 1,000 mg PO TID Qty: 90 3RF aspirin 81 mg tablet,delayed release (DR/EC) 81 mg PO BID Qty: 60 0RF dexamethasone 4 mg tablet 4 mg PO DAILY Qty: 2 0RF ibuprofen 600 mg tablet 600 mg PO TID PRNQty: 90 3RF pantoprazole 40 mg tablet,delayed release (DR/EC) 40 mg PO DAILY Qty: 30 0RF Continued atorvastatin 20 mg tablet 20 mg PO DAILY Tymlos 80 mcg (3,120 mcg/1.56 mL) pen injector 80 mcg subcut DAILY Rx Instructions: inject into abdomen; do not inject within 2 inches of belly button/navel; rotate sites dimenhydrinate [Dramamine] 50 mg tablet 50 mg PO Q8H PRN K2 Plus D3 1,000-100 unit-mcg tablet 1 tab PO DAILY escitalopram oxalate 5 mg tablet 5 mg PO DAILY selenium 50 mcg tablet 50 mcg PO DAILY Patient Comments: [place] Nuts, eats one a day. tretinoin 0.1 % cream 1 applic TP QHS methimazole 10 mg tablet 12.5 mg PO DAILY gabapentin 300 mg capsule 300 mg PO DAILY Qty: 90 3RF magnesium PO Discharge Instructions Additional Instructions: Total Hip Discharge Instructions Activity: The most important activity is to walk. You should try to take short walks a few times a day. You have no restrictions on movement or positioning, but do not try to force what you do. You will find some stiffness and weakness with hip flexion (lifting your knee). Do not try to strengthen this too early, continue to practice walking and stairs and this will come. - Outpatient physical therapy can be helpful to help return you to a normal gait and improve your flexibility and strength. This can start around 2 weeks. For some patients, it?s not necessary. Usually this is determined at the time of discharge or at the first post-operative visit. - You should wear the ANGELICA hose on both legs for 2 weeks. Dressing: Keep the surgical dressing in place for at least one week. After the first week it may be removed and replace with light gauze and tape or nothing. It may get wet after 3 days but avoid soaking the dressing. If it gets wet, just lightly pat dry. It is important to always keep some gauze between skin folds, especially when you are sitting. Spend some time with the wound exposed when you are lying flat as the incision does wrinkle onto itself. Medications: - You should take Tylenol and an anti-inflammatory ibuprofen as your primary pain control medications. - You have also been prescribed a stomach acid reduction agent Pantoprozole to help reduce stomach acid and reflux. - You have also been prescribed Decadron to help with post-operative nausea and pain. You will take this for two days starting tomorrow. - You will be taking Aspirin 81mg twice a day for DVT prevention unless instructed otherwise. - If you have constipation you should take Colace or Miralax (both [id number]). It takes most people 3-4 days to have a bowel movement. Follow-up: 2 weeks If you have any acute concerns or questions, please do not hesitate to contact the office at [phone]. You may contact Dr. Anderson with any questions after hours through the hospital at [phone] or on his cell phone at [phone]. Referrals: Bal Anderson MD [ [facility] STAFF PHYSICIAN] - Equipment/Supplies: Walker Activity:: Activity as Tolerated Shower/Bathe:: 72 hours Diet:: As Tolerated Discharge Orders Discharge Orders: Discharge Order (Routine); Ordered 04/01/24 Ordered By: Lupillo Jaimes DS: Diagnosis Discharge Diagnosis (1) Degenerative joint disease of left hip: Status: Acute
[2024-04-01] MEDS: ceFAZolin 2 GM/50 ML BAG IVPB (11:03)
[2024-04-01] MEDS: TRANEXAMIC ACID/SOD. CHL. 1,000 MG/100 ML BAG 600 MG IVPB (11:22)
--- NOTE | 2024-04-01 12:19 | DI.RAD_ITS ---
Exam(s) XR HIP LT IN OR EXAM: XR HIP LT IN OR CLINICAL HISTORY: LEFT HIP OA. TECHNIQUE: 2D digital imaging was performed. COMPARISON: No exams were available for comparison FINDINGS: Proximally provided during left hip arthroplasty. See procedure report for IMPRESSION: Radiation exposure index/cumulative dose:zahraa Gomez= 1.4066 mGy DATA REPOSITORY: RADIATION DOSE DELIVERED:
--- NOTE | 2024-04-01 14:43 | PT.INNT ---
PT Notes Visit Reasons: L THR Patient was discharged by orthopedic surgeon with needed assistive device in place. No services were provided for this episode of care.
--- NOTE | 2024-04-01 14:44 | W.ANESPOSTOP ---
Postoperative Evaluation Date, Time and Location Date Performed: 04/01/24 Time Performed: 14:35 Patient Location: Day Surgery Unit Vital Signs Most Recent Imported Vital Signs: Most Recent Vital Signs Temp Pulse Resp BP Pulse Ox 36.4 C L 59 L 19 141/75 H 97 04/01/24 14:02 04/01/24 14:02 04/01/24 14:02 04/01/24 14:02 04/01/24 14:02 Pain Score Most Recent Pain Score: Most Recent Pain Score Pain Level 2 04/01/24 13:08 Assessment Mental Status: Awake (Alert & Oriented to Patient Baseline) Airway and Respiratory Function: Patent airway with normal (patient baseline) respiratory exam Cardiovascular Function: Hemodynamically Stable Hydration Status: Adequately Hydrated Nausea & Vomiting: No Nausea or Vomiting Pain: Pain is tolerable per patient Peripheral Nerve Block: Patient did not receive a nerve block
--- NOTE | 2024-04-01 20:41 | ROE_ITS ---
Date of service: 04/01/24 Time of Service: 11:00 Operative Note Operative Note DATE OF PROCEDURE: 04/01/24 PRE-OP DIAGNOSIS: Left Hip Osteoarthritis POST-OP DIAGNOSIS: same PROCEDURE: Left Anterior Total Hip Arthroplasty with Intraoperative Navigation SURGEON: Bal Anderson BIOINFORMATICS DEVELOPER: Lupillo Jaimes ANESTHESIA TYPE: Spinal Refer to Anesthesia Record ESTIMATED BLOOD LOSS: 50 PATHOLOGY: none sent TOURNIQUET TIME: 0 COMPLICATIONS: None Patient was transported to: PACU Patient's condition: stable Implants: 1. Depuy Oakman Acetabular Component, 50mm 2. Depuy Acetabular Liner, [id number] 3. Depuy Corail Standard 125 degree Collared Femoral Stem, Size 12 4. Depuy Altrx Ceramic Femoral Head, Size 32+5mm Indications: I have seen Mary Lou in clinic for symptoms of hip arthritis, confirmed with radiographic findings. She has exhausted nonoperative methods and was having significant limitations in daily function and desired better function and less pain. I discussed the technical details of a hip replacement. She had a successful hip replacement on the right side [facility]. I explained the risks of the procedure to include, but not limited to, bleeding, infection, pain, stiffness, fracture, damage to nerves and vessels, damage to muscles and tendons, loosening, instability, leg length inequality, need for repeat procedure, blood clot and cardiopulmonary demise. Despite these risks, Mary Lou elected to proceed. Findings: There was significant signs of arthritis throughout the hip. Procedure Description: Mary Lou was greeted in the preoperative holding area where the correct side was identified and marked. The consent was reviewed with the patient and signed. The history and physical was updated. All questions were answered. She was taken back to the operating room. A spinal anesthestic was then administered. The feet were wrapped with cast padding and Coban and then placed into the boot liners and then into the boots. Care was taken to protect the skin and make sure the heels were fully down and the boots were stable. The patient was then positioned onto the HANA table. Both legs were held in a neutral position. SCDs were applied. The patient was then slid down onto a peroneal post. Prophylactic antibiotics in the form of Cefazolin were administered. 1g of Tranxemic Acid was given intravenously within 30 minutes of incision. The left leg was then prepped with Chloraprep and draped in a standard fashion. A second prep with Chloraprep was performed prior to placement of a shower-curtain type drape with Iodine impregnated skin protection. A timeout to confirm correct identity, side and site, procedure, allergies, anesthesia, and medical concerns was performed. An obliquely oriented incision was made starting lateral to the ASIS and running distal over the Tensor Fascia Myrna (TFL) muscle belly toward the fibular head, approximately 10cm. The skin and soft tissue was dissected sharply, through Rubi?s fascia, and to the fascia of the TFL. With the fascia and superior border of the IT band identified, the fascia was incised with a new knife just above any perforators from the IT band. The TFL muscle belly was bluntly dissected away from the fascia and moved laterally. The fat between TFL and rectus was identified to ensure the dissection was not within the TFL. Blunt dissection created space between abductors and the capsule and retractor was placed over the lateral femoral neck. The fibers of the rectus femoris tendon were identified and these were freed from the anterior capsule. A second cobra retractor was placed around the medial femoral neck. The TFL was further retracted laterally to show the deep fascia. Careful dissection through this layer identified three main crossing vessels of the lateral femoral circumflex. These were cauterized in multiple locations and then cut without any noticeable bleeding. The TFL was further released bluntly from the deep fascia to expose anterior hip capsule and fat The soft tissue orthopaedic retractor was then placed beneath the TFL and against sartorius and medial soft tissues to protect and retract the soft tissues. A T-capsulotomy was then performed starting at the superior lateral acetabulum and moving distally to the intertrochanteric ridge. These capsular flaps were tagged with a No. 1 Ethibond and elevated from within. The capsular flaps were released to the shoulder of the lateral neck and to the lesser trochanter to give excellent visualization of the proximal femur. A neck osteotomy was performed using an oscillating saw based on preoperative templates. This cut started in the shoulder and of the lateral neck and exited medially. The saw was at all times directed medially to avoid injury to the greater trochanter. Gross traction was applied to the leg and the osteotomy opened. The femoral head was removed with a corkscrew, making sure to protect the TFL on its exit. Traction was released after head removal. This was measured on the back table to determine the starting reamer size. Portions of the rectus obscuring visualization were minimally elevated off the superior acetabulum. An anterior retractor was placed over the anterior wall between capsule and labrum and attached to the Gripper retraction system. The femur was rotated to 90 degrees and medial capsule was fully released until the lesser trochanter was palpable and visible; the femur was returned to 30 degrees. A posterior retractor was placed similarly between capsule and labrum. This provided excellent visualization. The contents of the cotyloid fossa were removed with electrocautery and the labrum was removed with a knife. There was a notable floor osteophyte. There was significant chondromalacia of the superior acetabulum. Acetabular reaming began with a 44mm reamer. This first reaming was directed anterior to posterior and medial to get down to the true floor. This was inspected and reamed until the true floor was reached. The anterior retractor was then released and entry and exit was provided by traction on the capsular flaps. I then reamed sequentially up to a 50mm reamer where good fit was obtained. The larger reamers were oriented based on anatomical reference of the anterior and lateral nunez to ensure proper abduction and anteversion. Positioning and size was confirmed with the fluoroscopy. A 50mm Depuy Oakman acetabular component was selected. The acetabulum was reamed around the periphery with the selected acetabular size to prevent a rim fit. The deep tissues were irrigated. The acetabular component was then impacted in a position of about 40-45 degrees of abduction and 15-20 degrees of anteversion, using the patient?s anatomy as the ultimate landmark. Fluoroscopy was used to confirm this. There was excellent filler shredder machine of the acetabular component and the inserting handle was removed. The acetabular liner, Depuy [id number] polyethylene liner, was inserted and lined up with the tines of the acetabular component. There was no soft tissue interposition. The liner was then impacted into position and confirmed to be well-seated. A portion of the breanne-articular cocktail was then injected around the acetabulum into the capsule and periosteum. This cocktail consisted of 123mg of Ropivacaine, 0.25mg of Epinephrine, 0.04mg of Clonidine, and 15mg of Ketorolac, diluted to 50cc. The leg was rotated to 120 degrees. Any remaining medial capsule was released until the lesser trochanter was easily palpable. A retractor was placed medially. The lateral capsule was further released into the shoulder to allow access to the greater trochanter. A Velazquez retractor was placed over the greater trochanter which allowed the trochanter to flip in front of the capsule for excellent exposure. The leg was brought down into maximal extension and 20 degrees of adduction while ensuring there was no impingement on the acetabulum. Any remnant capsule within the trochanter was released. Piriformis and obturator externis were identified and protected. There was excellent access to the proximal femur. The lateral neck remnant was removed with a rongeur. A blunt canal probe was used to identify the canal and trajectory for later broaching. A box osteotome initiated the broach course. A small curved rasp and a curved curette were used to work laterally. Broaching then began with a size 8 Corail broach. This was inserted manually around the trochanter and into the canal before mallet blows. The broach was seated to the neck cut level based on the neck cut and the preoperative template. Sequential broaching was continued with the [employer] pneumatic broaching device until a tight fit was obtained with good rotational control of the femur. A trial standard 125 degree neck was inserted along with a +5 trial head. The leg was brought out of extension and adduction and then reduced with traction and internal rotation. The leg was stable anteriorly in a position of 30 degrees of extension and 90 degrees of external rotation. Fluoroscopy was used to ensure there was no fracture and the stem was seated well. Leg lengths were checked with an AP pelvis and pelvic reference points. [employer] navigation system was used to confirm appropriate positioning and leg length and offset. Once content with the desired offset and leg lengths, the leg was brought back into extension, external rotation and adduction. The periosteum and surrounding tissue was injected with remaining portion of the breanne-articular cocktail. The proximal femur was irrigated as well as the deep tissues. The Depuy Corail standard 125 degree collared stem, size 12, was then manually inserted into the proximal femur making sure to control rotation. It was then malleted into position with light blows, giving breaks to allow bone expansion and decrease risk of fracture. The selected Depuy Altrx Ceramic Head, size 32+5mm, was then placed onto the clean and dry trunnion and secured with impaction onto the tapered fit. The leg was brought back out of extension and adduction and reduced with traction and internal rotation. Stability was confirmed with no shuck at 90 degrees of external rotation and 30 degrees of extension. No impingement through range of motion arc. Final x-ray images were obtained with fluoroscopy to confirm adequate positioning and no intraoperative fracture. The deep tissues were thoroughly irrigated with Surgiphor, betadine solution. This was allowed to sit in the wound for 3 minutes before being thoroughly irrig ated out with normal saline. The capsule was then reapproximated with the previously placed Ethibond sutures. The TFL fascia was finally closed with a No. 2 Stratafix, barbed suture. Deep tissues were then reapproximated with 0 Vicryl and a running 2-0 Vicryl. The skin was closed with a running 4-0 Monocryl in a subcuticular fashion. This was reinforced with skin glue. A Mepilex silver dressing was applied. At the end of the case, all counts were correct. Mary Lou was transferred to the hospital bed without difficulty and suffering no apparent complication. She has a good prognosis. Physical therapy will start today and without restrictions, weight-bearing as tolerated. Aspirin 81mg BID will be used for DVT prophylaxis.
== END 2024-04-01 14:44 | disposition home or self-care (01) ==
PROVIDERS: PCP Family Medicine; Visit Provider Student in an Organized Health Care Education/Training Program
PROC: (CPT 27130; principal; 2024-04-01 09:45)
DX: M16.12 Unilateral primary osteoarthritis, left hip (principal); I25.10 Atherosclerotic heart disease of native coronary artery without angina pectoris; E55.9 Vitamin D deficiency, unspecified; M81.0 Age-related osteoporosis without current pathological fracture; Z96.641 Presence of right artificial hip joint
CPT/HCPCS: 27130; 20985; 73501; C1776; J0690; J1100; J2250; J2401; J2405; J2704

== ENCOUNTER 2024-04-16 11:39 | Outpatient (CLI) | payer BC, SELFPAY ==
--- NOTE | 2024-04-16 09:45 | DI.RAD_ITS ---
Exam(s) XR HIP LT COMPLETE AP PELVIS EXAM: XR HIP LT COMPLETE AP PELVIS CLINICAL HISTORY: 1ST POST OP L JUAN RAMON. TECHNIQUE: 2D digital imaging was performed. Two images were obtained. The pelvis and lateral left hip views were obtained. COMPARISON: CR XR HIP LT COMPLETE AP PELVIS from 03/02/2024 XA XR HIP LT IN OR from 04/01/2024 FINDINGS: BONES: There are stable post operative changes of a left total hip replacement present. No fracture or dislocation. The patient has a prior right total hip replacement. JOINTS: The orthopedic hardware is in good position. No evidence of hardware loosening. SOFT TISSUE: Normal. IMPRESSION: Stable left total hip replacement. DATA REPOSITORY: RADIATION DOSE DELIVERED:
== END 2024-04-16 11:40 | disposition home or self-care (01) ==
LOC: DIORS 11:39
PROVIDERS: PCP Family Medicine; Visit Provider Student in an Organized Health Care Education/Training Program
DX: Z96.642 Presence of left artificial hip joint (principal); Z47.1 Aftercare following joint replacement surgery
CPT/HCPCS: 73502

== ENCOUNTER 2024-05-13 10:25 | Day surgery (SDC) | payer BC, SELFPAY ==
--- NOTE | 2024-05-13 09:51 | W.PM.DSUDISC ---
Date of service: 05/13/24 Time of Service: 09:51 Discharge Plan Disposition Patient Disposition: Home Condition: Good Discharge Details Reason For Visit: L CMC Arthroplasty Attending Provider: Bal Anderson Primary Care Provider: Hira Méndez Home Meds and New Rx's Prescriptions: New acetaminophen 500 mg tablet 1,000 mg PO TID Qty: 90 3RF ibuprofen 600 mg tablet 600 mg PO TID PRNQty: 90 3RF Continued atorvastatin 20 mg tablet 20 mg PO DAILY Tymlos 80 mcg (3,120 mcg/1.56 mL) pen injector 80 mcg subcut DAILY Rx Instructions: inject into abdomen; do not inject within 2 inches of belly button/navel; rotate sites dimenhydrinate [Dramamine] 50 mg tablet 50 mg PO Q8H PRN K2 Plus D3 1,000-100 unit-mcg tablet 1 tab PO DAILY selenium 50 mcg tablet 50 mcg PO DAILY Patient Comments: [place] Nuts, eats one a day. tretinoin 0.1 % cream 1 applic TP QHS methimazole 10 mg tablet 5 mg PO BID escitalopram oxalate 5 mg tablet 5 mg PO DAILY Qty: 90 3RF atenolol 25 mg tablet 25 mg PO DAILY gabapentin 300 mg capsule 300 mg PO HS magnesium 500 tab PO DAILY Discharge Instructions Additional Instructions: Thumb CMC Discharge Instructions Activity: You should keep the hand/thumb elevated as much as possible for the first few days. You may use the other fingers as tolerated but avoid trying to do too much too soon. You may perform light activities with the splint in place. Dressing/Cast: Your splint should stay in place at all times. Do NOT get it wet. You may loosen the PAULA wrap if you feel it is too tight and then rewrap more loosely. Medications: - You should take Tylenol and Ibuprofen for pain control. - You may apply ice over the thumb. Follow-up: 10-14 days Referrals: Bal Anderson MD [ [facility] STAFF PHYSICIAN] - Activity:: Elevate Remove Dressings/Wound Care:: Do Not Remove Shower/Bathe:: Cover Diet:: As Tolerated Discharge Orders Discharge Orders: Discharge Order (Routine); Ordered 05/13/24 Ordered By: Lupillo Jaimes DS: Diagnosis Discharge Diagnosis (1) Arthritis of carpometacarpal (CMC) joint of left thumb: Status: Acute
[2024-05-13 11:30] VITALS: BP 132/77; PULSE 48; RESP 16; TEMP 36.1; O2SAT 98
--- NOTE | 2024-05-13 11:51 | W.ANESPRE ---
General Info Date of Service Date Performed: 05/13/24 Height: 5 ft 1 in Weight: 57.3 kg Body Mass Index (BMI): 23.8 Surgical Procedure: Operation Date: 05/13/24 11:40 Proposed Procedure Side Surgeon p CMC Arthroplasty, Thumb Left Bal Anderson MD Meds Allergies and Home Medications Allergies Allergy/AdvReac Type Severity Reaction Status Date / Time codeine AdvReac Severe vomiting Verified 05/13/24 11:36 hydrocodone bitartrate (From AdvReac Severe n/v Verified 05/13/24 11:36 Vicodin) meperidine HCl (From Demerol) AdvReac Severe n/v Verified 05/13/24 11:36 buspirone AdvReac Intermediate Other (See Verified 05/13/24 11:36 Comment) melatonin AdvReac Intermediate very Verified 05/13/24 11:36 irritable paroxetine AdvReac Intermediate sleep Verified 05/13/24 11:36 issues, hot flashes scopolamine AdvReac Intermediate disorientat Verified 05/13/24 11:36 ion iodine AdvReac Unknown Unknown Verified 05/13/24 11:36 povidone-iodine (From AdvReac Unknown Unknown Verified 05/13/24 11:36 Betadine) Home Medication ?Medication ?Instructions ?Recorded tretinoin 0.1 % topical cream 1 applic topical QHS 09/08/18 abaloparatide (Tymlos) 80 mcg subcut DAILY 01/21/23 atorvastatin 20 mg tablet 20 mg PO DAILY 01/21/23 dimenhydrinate 50 mg tablet 50 mg PO Q8H PRN 01/21/23 (Dramamine) cholecalciferol (vit D3) 1,000 1 tab PO DAILY 09/19/23 unit-vitamin K2 (MK4) 100 mcg tablet (K2 Plus D3) methimazole 10 mg tablet 5 mg PO BID 09/19/23 selenium 50 mcg tablet 50 mcg PO DAILY 03/30/24 magnesium 500 tab PO DAILY 04/01/24 escitalopram oxalate 5 mg tablet 5 mg PO DAILY #90 tabs 04/16/24 atenolol 25 mg tablet 25 mg PO DAILY 04/20/24 acetaminophen 500 mg tablet 1,000 mg (2 x 500 mg) PO TID #90 05/13/24 tabs gabapentin 300 mg capsule 300 mg PO HS sciatica (calf) 11/20/24 ibuprofen 600 mg tablet 600 mg PO TID PRN #90 tabs 05/13/24 oxycodone 5 mg tablet 5 mg PO Q4H PRN pain #20 tabs 05/13/24 Current Visit Medications: Current Medications Generic Name Dose Route Start Last Admin Trade Name Freq PRN Reason Stop Dose Admin Acetaminophen 1,000 mg 05/13/24 06:00 Acetaminophen 500 Mg Tab PO 05/13/24 18:00 PREOP MARIUM Acetaminophen 650 mg 05/13/24 09:49 Acetaminophen 325 Mg Tab PO 06/12/24 09:48 Q4H PRN PRN Celecoxib 400 mg 05/13/24 06:00 Celecoxib 200 Mg Cap PO 05/13/24 18:00 PREOP MARIUM Cefazolin Sodium/Dextrose 2 gm in 50 mls @ 100 mls/hr 05/13/24 06:00 Ancef Duplex IVPB 05/13/24 18:00 PREOP MARIUM IV Miscellaneous Supplies 1 each 05/13/24 06:00 Iv Access IV 06/11/24 23:59 DIRECTED MARIUM Oxycodone/Acetaminophen 1 tab 05/13/24 09:49 Oxycodone 5 Mg/Acetaminophen 325 Mg Tab PO 06/12/24 09:48 Q4H PRN PRN Pain Sodium Chloride 0 ml 05/13/24 06:00 Normal Saline Flush 10 Ml Syr IV 06/11/24 23:59 PRN PRN Sodium Chloride 0 ml 05/13/24 06:00 Normal Saline 10 Ml Vial IJ 06/11/24 23:59 DIRECTED PRN Sterile Water 0 ml 05/13/24 06:00 Water,Injection,Sterile 10 Ml Vial IJ 06/11/24 23:59 DIRECTED PRN PFSH Active Problems Active Problems: Problem Status Onset Code History of total left hip arthroplasty Acute 04/01/24 Z96.642 Well woman exam with routine gynecological exam Acute Z01.419 Degenerative joint disease of left hip Acute M16.12 Arthritis of carpometacarpal (CMC) joint of left thumb Acute M18.12 Diplopia Chronic H53.2 Thyroid nodule Acute ~02/2023 E04.1 Vitamin D deficiency, unspecified Acute ~02/2023 E55.9 Arteriosclerotic cardiovascular disease Acute I25.10 De Quervain's tenosynovitis, left Acute M65.4 Exophthalmos Acute 09/17/22 H05.20 Other osteoporosis Acute 08/03/22 M81.8 Graves' disease Acute ~06/2022 E05.00 Dyspnea on minimal exertion Acute R06.09 Hot flash not due to menopause Acute R23.2 Abnormal heart rate Acute R00.9 Hyperthyroidism Chronic E05.90 Situational anxiety Acute F41.8 Situational mixed anxiety and depressive disorder Acute F43.23 Poor sleep Chronic Z72.820 Chronic night sweats Chronic R61 Stress due to illness of family member Acute Z63.79 Osteoarthritis of carpometacarpal (CMC) joint of right thumb Acute M18.11 Lumbar radiculopathy, chronic Acute ~07/2021 M54.16 Osteoarthritis of left knee Acute M17.12 Elevated blood pressure reading without diagnosis of hypertension Acute R03.0 Former cigarette smoker Chronic Z87.891 Anxiety Chronic F41.9 Alcohol abuse, 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 recovered, but wondering if lingering effects? AND high anxiety/worry about having passed it along to her who has immun-def cond and required ICU. Hx of scoliosis Lentigines Benign nevus of skin Other seborrheic keratosis Vestibular dysfunction Nephrolithiasis Dyspareunia Longitudinal melanonychia R Great toe, 09/04/18 [facility] D[facility]ology Solar lentiginosis 09/04/18 [facility] Derm Carpal tunnel syndrome (06/11/13) Medical History Comments:: hx of previous complication from anesthesia - awakes violent. pt. requested to use only Propofol for anesthesia Surgical History Surgical History History of left hip replacement History of total right hip replacement (04/11/21) Trigger thumb of right hand Depo-Medrol injection: 02/10/2021 s/p right trigger thumb release DOS: 10/10/2021 History of esophagogastroduodenoscopy (EGD) (~06/24/00) H/O colonoscopy (~06/24/09) S/P left knee arthroscopy (~04/20/16) w/Limited chondroplasty medial femoral condyle, medial tibial plateau and patella. S/P rotator cuff repair (~04/2012) right Arthroplasty of knee (04/20/16) LEFT/DR. PANDYA Tobacco Smoking/Tobacco Use Status: Current every day Tobacco Type: e-cigarettes Alcohol Alcohol Intake: former Year quit: 1993 Details: no ETOH for 25 yrs Substance Use Substance use: Daily Substance use type: marijuana Vital Signs and Lab Results Vital Signs Most Recent Vital Signs in EMR: Most Recent Vital Signs Temp Pulse Resp BP Pulse Ox 36.1 C L 48 L 16 132/77 98 05/13/24 11:30 05/13/24 11:30 05/13/24 11:30 05/13/24 11:30 05/13/24 11:30 Lab Results Blood Type / Crossmatch: No Data to Display Complete Blood Count: No Data to Display Complete Metabolic Panel: No Data to Display Liver Function Panel: No Data to Display Coagulation Panel: No Data to Display Cardiac Panel: No Data to Display Arterial Blood Gas: No Data to Display Venous Blood Gas: No Data to Display Pancreas Panel: No Data to Display Thyroid Panel: No Data to Display Infectious Disease: No Data to Display Blood Cultures: No Data to Display Toxicology Panel: No Data to Display Imaging and Studies Imaging and Studies Study information below may be from another EMR and interpreted by another provider. Please see original notes in EMR for more complete details. Echocardiogram Summary: 07/2022: Indications: Evaluate heart function, Dyspnea f/h of heart disease, abnormal heart rhythm, graves disease Conclusion Normal left ventricular wall thickness and chamber size. Estimated ejection fraction is 60 to 65%. Wall motion is normal Right ventricular size and systolic function Both atria are normal in size Aortic valve is trileaflet with trace regurgitation Estimated right ventricular systolic pressure is 22 mmHg Mildly dilated ascending aorta Aortic Valve The aortic valve is normal in structure. Aortic valve is trileaflet. There is no aortic valvular stenosis. Trace aortic regurgitation. Mitral Valve The mitral valve is normal in structure. No evidence of mitral valve stenosis. Trace mitral regurgitation. Tricuspid Valve The tricuspid valve is normal in structure. There is no tricuspid valve stenosis. Trace tricuspid regurgitation. Pulmonic Valve The pulmonary valve is normal in structure. There is no pulmonic valvular stenosis. Trace pulmonic regurgitation. Great Vessels The aortic root is normal in size. The ascending aorta is mildly dilated. Aortic arch is normal in caliber. IVC is normal in size and collapses >50% with inspiration. Anesthesia Assessment and Plan Anesthesia History Personal History: PONV Family History: No Family History of Anesthesia Complications Exercise Tolerance Exercise Tolerance: Metabolic Equivalents>4 Pertinent Negatives Pertinent Negatives: No Symptoms of GERD Cardiac & Pulmonary Exam Cardiac Exam: Normal S1/S2 Heart Sounds Pulmonary Exam: Clear Bilateral Breath Sounds Implantable Cardiac Device Does patient have a Pacemaker or an ICD?: No Airway Exam Known Difficult Airway: No Mallampati Class: 1 Mouth Opening: Normal (> 3cm) Thyromental Distance: Greater than 3 cm Neck Range of Motion: Full ROM Neck Circumference: Normal Teeth Condition: Normal Dentition ASA Classification ASA Score: ASA 2 Emergency Case?: No NPO Status NPO Status: NPO Clears >2 hours, Solids >8 hours Anesthesia Plan Resuscitation Status: Full Code Anesthesia Technique: General Anesthesia Airway Planned: Natural Airway Monitors Used: Standard Monitors
[2024-05-13 11:52] VITALS: BMI 23.8
[2024-05-13] MEDS: Celecoxib 200 MG CAP 400 MG PO (11:54)
[2024-05-13] MEDS: Acetaminophen 500 MG TAB 1000 MG PO (11:55)
--- NOTE | 2024-05-13 11:58 | W.PREOPHP ---
Assessment and Plan Assessment and plan (1) Arthritis of carpometacarpal (CMC) joint of left thumb: Status: Acute Assessment and plan: Mary Lou is a 63-year-old female who has known arthritis of the left thumb CMC joint. She is here today for thumb CMC arthroplasty. I once again reviewed the technical details of the surgery. I discussed the risk to include bleeding, infection, pain, stiffness, damage nerves and vessels, damage to muscle and tendons, thumb subsidence, weakness, need for repeat procedures. Despite these risk, she elects to proceed. History of Present Illness History of Present Illness Chief Complaint: Left Thumb Pain/ CMC Arthritis Narrative: Mary Lou is an active 63-year-old female who has known arthritis of the left thumb CMC joint. She is status post right thumb CMC arthroplasty which is done quite well. She more recently had a left hip replacement about 6 weeks ago which she is recovering well from. She continues have pain about the left thumb. She had initially planned to proceed with a left thumb replacement for the left hip became to bother her more. Now that she is recovered from the left hip she would like the left thumb replaced. She has failed other nonoperative options. Please see previous office notes for more details. She denies any acute medical changes. No chest pain or shortness of breath. Review of Systems All systems reviewed & are unremarkable except as noted in HPI and below PFSH All Active Problems History of total left hip arthroplasty (Acute 04/01/24) Well woman exam with routine gynecological exam (Acute) Degenerative joint disease of left hip (Acute) Arthritis of carpometacarpal (CMC) joint of left thumb (Acute) Diplopia (Chronic) [place] [facility] [place] Thyroid nodule (Acute ~02/2023) 03/19/23 Endocrinology Vitamin D deficiency, unspecified (Acute ~02/2023) 03/19/23 Endocrinology Arteriosclerotic cardiovascular disease (Acute) De Quervain's tenosynovitis, left (Acute) Exophthalmos (Acute 09/17/22) Other osteoporosis (Acute 08/03/22) UNSPECIFIED PATHOLOGICAL FX PRESENCE PER [facility] [place] Graves' disease (Acute ~06/2022) Low TSH; High T4, T3. [HYPOTHyroid Ab NEG, ordered in error due to mis-comm w/ lab]. Probable Graves DDx, ik [ ] Endo Dyspnea on minimal exertion (Acute) Hot flash not due to menopause (Acute) Thought to be perimenopausal, but possible hyperthyroid Abnormal heart rate (Acute) Hyperthyroidism (Chronic) Surprisingly low TSH (< 0.01), with high T4; re-checking.. Repeat low TSH; High T4, T3. Probable Graves DDx, ik [ ] Endo Situational anxiety (Acute) Situational mixed anxiety and depressive disorder (Acute) Poor sleep (Chronic) Presumed 2' hot flashes/sweating, exacerbated by anxiety (GHASSAN? 's health?) Chronic night sweats (Chronic) Started @ 35yo, no relief pre/post menopause or with meds/hrt so far [maybe mild relief with compounded HRT years ago w/ [facility] [employer]].. Stress due to illness of family member (Acute) Osteoarthritis of carpometacarpal (CMC) joint of right thumb (Acute) Right trapezial resection arthroplasty with suture suspensionplasty DOS: 10/30/22 Steroid injection: 04/16/2022; 12/11/2021 Lumbar radiculopathy, chronic (Acute ~07/2021) Osteoarthritis of left knee (Acute) Depo Medrol 12/11/21 Elevated blood pressure reading without diagnosis of hypertension (Acute) Elevated BP, inc frequency, 05/24/22, ik MONITORING .. Possible assoc with new finding of HYPERthyroidism. Former cigarette smoker (Chronic) 40+ pk yrs, quit [address] Screening, following 3mm nodule. Anxiety (Chronic) Long Hx, in hindsight.. 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 recovered, but wondering if lingering effects? AND high anxiety/worry about having passed it along to her who has immun-def cond and required ICU. Hx of scoliosis Lentigines Benign nevus of skin Other seborrheic keratosis Vestibular dysfunction Nephrolithiasis Dyspareunia Longitudinal melanonychia R Great toe, 09/04/18 [facility] [place] Solar lentiginosis 09/04/18 [facility] [place] Carpal tunnel syndrome (06/11/13) Surgical History History of left hip replacement History of total right hip replacement (04/11/21) Trigger thumb of right hand Depo-Medrol injection: 02/10/2021 s/p right trigger thumb release DOS: 10/10/2021 History of esophagogastroduodenoscopy (EGD) (~06/24/00) H/O colonoscopy (~06/24/09) S/P left knee arthroscopy (~04/20/16) w/Limited chondroplasty medial femoral condyle, medial tibial plateau and patella. S/P rotator cuff repair (~04/2012) right Arthroplasty of knee (04/20/16) LEFT/DR. PANDYA Family History Father Heart disease Hypertension Mother Hypertension Stroke Maternal Grandfather Heart disease Arthritis Paternal Grandmother Heart disease Maternal Grandmother Arthritis Social History Smoking/Tobacco Use Status: Current every day Tobacco Type: e-cigarettes Smoking risk assessment performed?: Yes Alcohol Intake: former Year quit: 1993 Details: no ETOH for 25 yrs Drug use: Daily Substance use type: marijuana Household members: spouse Housing: house Number of Children: 0 Communication Needs: None current occupation: retired Current gender identity: female What is your relationship status?: Panel score (0-1 are the most socially isolated patients): 1 What type of physical activity do you participate in: regular exercise Frequency: 3-4 times per week Seatbelt use: always Helmet use: Yes Drive intox or ride w/intox line driver: No Working smoke detector in home: Yes Carbon monox detector in home: Yes Firearms in home: Yes Firearms unloaded and locked: Yes Additional Social history: UTAP Meds Allergies and Home Medications Allergies Allergy/AdvReac Type Severity Reaction Status Date / Time codeine AdvReac Severe vomiting Verified 05/13/24 11:36 hydrocodone bitartrate (From AdvReac Severe n/v Verified 05/13/24 11:36 Vicodin) meperidine HCl (From Demerol) AdvReac Severe n/v Verified 05/13/24 11:36 buspirone AdvReac Intermediate Other (See Verified 05/13/24 11:36 Comment) melatonin AdvReac Intermediate very Verified 05/13/24 11:36 irritable paroxetine AdvReac Intermediate sleep Verified 05/13/24 11:36 issues, hot flashes scopolamine AdvReac Intermediate disorientat Verified 05/13/24 11:36 ion iodine AdvReac Unknown Unknown Verified 05/13/24 11:36 povidone-iodine (From AdvReac Unknown Unknown Verified 05/13/24 11:36 Betadine) Home Medications ?Medication ?Instructions ?Recorded ?Confirmed ?Type tretinoin 0.1 % topical cream 1 applic topical QHS 09/08/18 05/13/24 History abaloparatide (Tymlos) 80 mcg subcut DAILY 01/21/23 05/13/24 History atorvastatin 20 mg tablet 20 mg PO DAILY 01/21/23 05/13/24 History dimenhydrinate 50 mg tablet 50 mg PO Q8H PRN 01/21/23 05/13/24 History (Dramamine) cholecalciferol (vit D3) 1,000 1 tab PO DAILY 09/19/23 05/13/24 History unit-vitamin K2 (MK4) 100 mcg tablet (K2 Plus D3) methimazole 10 mg tablet 5 mg PO BID 09/19/23 05/13/24 History selenium 50 mcg tablet 50 mcg PO DAILY 03/30/24 05/13/24 History magnesium 500 tab PO DAILY 04/01/24 05/13/24 History escitalopram oxalate 5 mg tablet 5 mg PO DAILY #90 tabs 04/16/24 05/13/24 Rx atenolol 25 mg tablet 25 mg PO DAILY 04/20/24 05/13/24 History acetaminophen 500 mg tablet 1,000 mg (2 x 500 mg) PO TID #90 05/13/24 Rx tabs gabapentin 300 mg capsule 300 mg PO HS sciatica (calf) 05/13/24 05/13/24 History ibuprofen 600 mg tablet 600 mg PO TID PRN #90 tabs 05/13/24 Rx oxycodone 5 mg tablet 5 mg PO Q4H PRN pain #20 tabs 05/13/24 Rx Exam Const General: cooperative, healthy appearing, comfortable and no acute distress Resp Effort & Inspection: normal respiratory effort Auscultation: clear to auscultation bilaterally Cardio Rate: regular rate Rhythm: regular rhythm Results Last Vital Signs Temp 36.1 C L 05/13/24 11:30 Pulse 48 L 05/13/24 11:30 Resp 16 05/13/24 11:30 BP 132/77 05/13/24 11:30 Pulse Ox 98 05/13/24 11:30
[2024-05-13] MEDS: Normal Saline Flush 10 ML SYR IV (12:05)
[2024-05-13] MEDS: ceFAZolin 2 GM/50 ML BAG IVPB (12:20)
[2024-05-13] MEDS: Bupivacaine 0.25% Pres-Free 30 ML VIAL (12:37)
[2024-05-13 13:21] VITALS: BP 120/77; PULSE 54; RESP 16; TEMP 36.6; O2SAT 100
--- NOTE | 2024-05-13 13:21 | ROE_ITS ---
Operative Note Operative Note PRE-OP DIAGNOSIS: Left Thumb CMC Arthritis POST-OP DIAGNOSIS: same PROCEDURE: Left trapezial resection arthroplasty with suture suspensionplasty SURGEON: Bal Anderson ANESTHESIA TYPE: General LMA/ETT Refer to Anesthesia Record ESTIMATED BLOOD LOSS: 5 PATHOLOGY: none sent TOURNIQUET TIME: 32 COMPLICATIONS: None Patient was transported to: PACU Patient's condition: stable Indications: Mary Lou is a 63 year old female who has had symptoms of thumb CMC arthritis with pain and decreased mobility. Nonoperative treatment options had been trialed. Given their failure, I offered operative intervention. I reviewed the technical details. I reviewed the risk of the procedure to include bleeding, infection, pain, stiffness, instability, subsidence, damage to neighboring arteries, damage to the superficial radial nerve, and weakness. Despite these risks, the patient elected to proceed. Findings: There is notable arthrosis between the trapezium and the first metacarpal. There are large osteophytes around the entirety of the trapezium. Procedure Description: Mary Lou was greeted in the preoperative holding area. Name and surgical site were confirmed. The history and physical was completed. The consent was reviewed the patient and signed. She was taken back to the operating room. The patient was placed and monitored anesthesia care. The left was then prepped with ChloraPrep and draped in a standard fashion after a nonsterile tourniquet was placed high up onto the arm. Prophylactic antibiotics in the form of cefazolin were administered. A timeout was performed for safe surgery. The surgical site was drawn on the skin overlying the dorsal radial border of the wrist. The planned surgical field was anesthetized with 0.25% bupivacaine with epinephrine. The limb was exsanguinated and the tourniquet was inflated where it stayed for 45 minutes. A 3 cm incision was made longitudinally over the radial wrist from the level of the radial styloid to just past the base of the first metacarpal. The skin was incised only. The deep tissue and subcut aneous fat was dissected with a tenotomy scissors trying to protect branches of the superficial radial nerve. Any branches that were identified were retracted out of the way. The first compartment extensor tendons were then identified and the first compartment was released. The interval between EPL and EPB was identified. The base of the first metacarpal was palpated. A needle was placed into the joint between the first metacarpal and the trapezium. A single x-ray was used to confirm appropriate positioning. The capsule of the trapezium was then incised. The radial border of the bone was identified. Soft tissues around trapezium were dissected bluntly to allow relaxation of vital arterial structures traversing the trapezium. Using a [place] blade the capsule was elevated off the trapezium in a subperiosteal fashion. Once it appeared to have all the capsular attachments released, the trapezium was then removed using a rongeur. The wound was inspected to make sure all portions of the trapezium were removed. X-ray was used to confirm appropriate removal of all bony fragments. The wound was then thoroughly irrigated. Using a 2-0 FiberWire then performed a suture suspens ionplasty. This was done by incorporating capsule and attachments of the APL at the base of the first metacarpal and creating a sling connected to the deep flexor carpi radialis tendon seen traversing deep within the wound towards the second metacarpal. This was done twice to create a crossing network of 2-0 suture. This was then tied overlying the base of the first metacarpal making sure not to over tighten and hourglass the tendons. This provided support to the first metacarpal to prevent any excessive subsidence. The tourniquet was then released. There is no significant bleeding. The capsule of the trapezium was then reapproximated with a 2-0 Vicryl. The skin was closed with subcuticular 4-0 Monocryl, reinforced with skin glue. The hand was dressed with 4 x 4's, Kerlex and PAULA to create a soft, thumb spica splint. All counts were correct. Patient was transferred back to PACU in a stable condition. Date of Procedure: 05/13/24
--- NOTE | 2024-05-13 13:34 | DI.RAD_ITS ---
Exam(s) XR HAND LT LIMITED EXAM: XR HAND LT LIMITED CLINICAL HISTORY: Arthritis (CMC) joint of left thumb. TECHNIQUE: 2D and realtime digital imaging was performed. COMPARISON: No exams were available for comparison FINDINGS: A hard copy image shows a needle projecting into the 1st carpal metacarpal joint. Please see procedure note for details. Fluoro time: 0.01seconds RADIATION DOSE DELIVERED: Kar=0.0036 mGy
[2024-05-13 13:40] VITALS: BP 118/70; PULSE 54; RESP 16; TEMP 36.6; O2SAT 96
--- NOTE | 2024-05-13 13:46 | W.ANESPOSTOP ---
Postoperative Evaluation Date, Time and Location Date Performed: 05/13/24 Time Performed: 13:46 Patient Location: Day Surgery Unit Vital Signs Most Recent Imported Vital Signs: Most Recent Vital Signs Temp Pulse Resp BP Pulse Ox 36.6 C 54 L 16 118/70 96 05/13/24 13:40 05/13/24 13:40 05/13/24 13:40 05/13/24 13:40 05/13/24 13:40 Pain Score Most Recent Pain Score: Most Recent Pain Score Pain Level 0 05/13/24 13:40 Assessment Mental Status: Awake (Alert & Oriented to Patient Baseline) Airway and Respiratory Function: Patent airway with normal (patient baseline) respiratory exam Cardiovascular Function: Hemodynamically Stable Hydration Status: Adequately Hydrated Nausea & Vomiting: No Nausea or Vomiting Pain: Pt. Denies Any Pain Peripheral Nerve Block: Patient did not receive a nerve block
== END 2024-05-13 14:12 | disposition home or self-care (01) ==
LOC: SUR 10:25
PROVIDERS: PCP Family Medicine; Visit Provider Student in an Organized Health Care Education/Training Program
PROC: (CPT 25447; principal; 2024-05-13 11:30)
DX: M18.12 Unilateral primary osteoarthritis of first carpometacarpal joint, left hand (principal); H05.20 Unspecified exophthalmos; E55.9 Vitamin D deficiency, unspecified; Z87.891 Personal history of nicotine dependence; M54.16 Radiculopathy, lumbar region
CPT/HCPCS: 25447; 76000; 73120; J0665; J0690; J1100; J2003; J2405; J2704

== ENCOUNTER 2024-06-02 01:33 | Outpatient (CLI) | payer BC, SELFPAY ==
--- NOTE | 2024-06-02 11:45 | DI.MAMMO_ITS ---
Exam(s) MAMMO SCREENING EXAM: MAMMO SCREENING CLINICAL HISTORY: screening. TECHNIQUE: Bilateral full field digital CC and MLO mammographic images were obtained with 3D tomosyn thesis and utilizing computer aided detection (CAD). COMPARISON: Prior mammograms were reviewed. FINDINGS: There has been no significant change in the appearance and distribution of the fibroglandular tissue which is again noted be moderately dense. There are no CAD designations. No new left breast findings. In the right breast there is a 1.2 by 1.0 cm well-defined asymmetric density located 6 cm in from the nipple on the MLO view and also 6 cm in from the nipple on the CC view. Further imaging recommended . There are no malignant-appearing microcalcification groups in this region or elsewhere in either [address] st. There is no significant architectural distortion nor skin thickening-retraction. IMPRESSION: 1. Dense bilateral fibroglandular tissue. No radiographic evidence of malignancy in the left breast. 2. Asymmetric density-possible 12 x 10 mm nodule in the right breast as described above. Spot compre ssion views and ultrasound recommended. BI-RADS Category 0 - Incomplete: Need additional imaging evaluation Breast Density - Category C - Heterogeneously dense Breast density Category C or D implies that the patient has dense breast tissue. Dense breast tissue can make it harder to find cancer on a mammogram. Dense breast tissue is also associated with an incr eased risk of breast cancer. This information about the result of the mammogram report was provided to the patient to raise their awareness. Use this report when you speak with the patient about their risks for breast cancer, which includes their family history. At that time, you may recommend additional screening tests (Ultrasoun d or MRI) as these tests may add significant information. A negative radiographic report should not delay biopsy if a dominant or clinically suspicious mass is present. Up to ten percent of cancers are not identified on mammography. A negative report may reinforce clinical impression. Adenosis and dense breasts may obscure an underlying neoplasm. False positive reports average 6 to 10%. Patient will receive a letter notifying them of these results.
== END 2024-06-02 01:53 ==
LOC: DI 01:33
PROVIDERS: PCP Family Medicine; Visit Provider Obstetrics & Gynecology
DX: Z12.31 Encounter for screening mammogram for malignant neoplasm of breast (principal); R92.333 Mammographic heterogeneous density, bilateral breasts; D24.2 Benign neoplasm of left breast
CPT/HCPCS: 77063; 77067

== ENCOUNTER 2024-06-03 11:15 | Outpatient (CLI) | payer BC, SELFPAY ==
--- NOTE | 2024-06-03 | DI.US_ITS ---
Exam(s) MG MAMMO SCREEN CALL BACK UNI US BREAST RT COMPLETE EXAM: MG MAMMO SCREEN CALL BACK UNI RIGHT AND RIGHT BREAST ULTRASOUND CLINICAL HISTORY: 1.2 x 1.0 cm well-defined asymmetric density 6 cm from nipple, rt breast. TECHNIQUE: Unilateral spot mammographic images obtained with 3D tomosynthesisand utilizing computer aided detection (CAD). . Complete RIGHT breast Ultrasound was also performed, including all 4 quadrants, the retroareolar fermin on, and the ipsilateral axilla. COMPARISON: Prior mammograms were reviewed. This additional imaging was performed due to findings described on the recent screening mammogram of 06/02/2024. FINDINGS: DIAGNOSTIC MAMMOGRAM: Additional mammographic views performed todayrender this area less concerning and similar in appearan ce to prior mammograms. COMPLETE RIGHT BREAST ULTRASOUND: Ultrasound performed today reveals no significant focal ultrasound findings 4 quadrants.. Scanning of the ipsilateral axilla reveals no significant adenopathy. IMPRESSION: 1. No radiographic evidence of malignancy in the right breast. 2. Negative complete right breast ultrasound Appropriate follow-up is to keep this patient on a yearly mammogram schedule, with earlier imaging i f a self detected breast change is noted.. The patient was informed of these findings and recommendations by myself prior to leaving the departm ent today. BI-RADS Category 2 - Benign Findings Breast Density - Category C - Heterogeneously dense Breast density Category C or D implies that the patient has dense breast tissue. Dense breast tissue can make it harder to find cancer on a mammogram. Dense breast tissue is also associated with an incr eased risk of breast cancer. This information about the result of the mammogram report was provided to the patient to raise their awareness. Use this report when you speak with the patient about their risks for breast cancer, which includes their family history. At that time, you may recommend additional screening tests (Ultrasoun d or MRI) as these tests may add significant information. A negative radiographic report should not delay biopsy if a dominant or clinically suspicious mass is present. Up to ten percent of cancers are not identified on mammography. A negative report may reinforce clinical impression. Adenosis and dense breasts may obscure an underlying neoplasm. False positive reports average 6 to 10%. Patient will receive a letter notifying them of these results.
== END 2024-06-03 11:35 ==
LOC: DI 11:15
PROVIDERS: PCP Family Medicine; Visit Provider Obstetrics & Gynecology
DX: D24.1 Benign neoplasm of right breast (principal); R92.333 Mammographic heterogeneous density, bilateral breasts; Z12.31 Encounter for screening mammogram for malignant neoplasm of breast
CPT/HCPCS: 76642; 77063; 77067

== ENCOUNTER 2024-12-09 03:09 | Outpatient (CLI) | payer MEDICARE, SELFPAY ==
[2024-12-09 10:39] LABS: Abs Immature Grans 0.01 10^3/uL (0.0-0.06); Absolute Basophil Count 0.03 10^3/uL (0.0-0.2); Absolute Eosinophil Count 0.15 10^3/uL (0.0-0.7); Absolute Lymphocyte Count 1.86 10^3/uL (1.2-3.4); Absolute Monocyte Count 0.56 10^3/uL (0.1-0.8); Absolute Neutrophil Count 2.88 10^3/uL (1.2-6.7); Basophils % 0.5 %; Eosinophils % 2.7 %; HCT 43.9 % (36.0-46.0); HGB 14.4 g/dL (11.2-15.7); Immature Grans % 0.2 %; Lymphocytes % 33.9 %; MCH 30.6 pg (27.0-33.0); MCHC 32.8 % (32.0-36.0); MCV 93 fL (80-95); Monocytes % 10.2 %; Neutrophils % 52.5 %; Platelet Count 167 10^3/uL (130-400); RBC 4.71 10^6/uL (3.93-5.22); RDW-SD 41.4 fL; WBC 5.49 10^3/uL (4.4-10.8)
[2024-12-09 11:15] LABS: FREE T4 1.47 ng/dL (0.76-1.46); TSH 0.01 uIU/mL (0.36-3.74)
[2024-12-09 18:42] LABS: T3, Total 178 ng/dL (97-169)
[2024-12-15 16:55] LABS: Thyroid Stimulating Immunoglob 2.9 TSI index (<=1.3)
== END 2024-12-09 03:10 | disposition home or self-care (01) ==
LOC: LBO 03:09
PROVIDERS: PCP Family Medicine; Visit Provider Internal Medicine
DX: E05.00 Thyrotoxicosis with diffuse goiter without thyrotoxic crisis or storm (principal)
CPT/HCPCS: 36415; 84439; 84443; 84445; 84480; 85025

== ENCOUNTER 2024-12-31 01:23 | Outpatient (CLI) | payer MEDICARE, OTHER, SELFPAY ==
--- NOTE | 2024-12-31 | DI.DEXA_ITS ---
Exam(s) XR DEXA BONE DENSITY W/WO LAUREEN EXAM: XR DEXA BONE DENSITY W/WO LAUREEN CLINICAL HISTORY: Osteoporosis, pathological fracture presence M81.0 FU TECHNIQUE: HoloIschemia Care C densitometer analysis of the lumbar spine and left forearm. Lateral survey image of the thoracic and lumbar spine. The hips were not analyzed due to presence bilateral hip prostheses. COMPARISON: MR MR LUMBAR SPINE WO from 09/29/2021 CR XR DEXA BONE DENSITY W/WO LAUREEN from 08/03/[address] CHEST LUNG CANCER SCREEN from 07/06/2024 FINDINGS: Lateral view of the thoracic and lumbar spine shows mild compression fractures of L1 and L2 and possibly T12. The upper thoracic vertebral bodies are not well profiled. There is also significant dextroscoliosis secondary to severe degenerative changes at L2-3 with prominent endplate osteophytes and sclerosis. Bone mineral density measurements of the lumbar spine correspond to a total T- score of -0.1, in the normal range. This represents a 25 percent increase from 2022. This increases likely secondary due to worsening of degenerative changes and compression fractures. Theleft forearm bone mineral density measurements correspond to a T-score of the distal 3rd of -3.5, in the osteoporotic range. This represents an 8.9 percent decrease from 2022. IMPRESSION: Normal bone density of the lumbar spine. Osteoporosis of the forearm. L1 and L2 mild compression fractures. Question of additional T12 compression fracture.
== END 2024-12-31 01:43 ==
PROVIDERS: PCP Family Medicine; Visit Provider Internal Medicine
DX: M81.0 Age-related osteoporosis without current pathological fracture (principal)
CPT/HCPCS: 77080

== ENCOUNTER 2025-01-18 18:20 | Outpatient (REF) | payer MEDICARE, SELFPAY ==
[2025-01-18 13:02] LABS: Creatinine,Urine 31.88 mg/dL
[2025-01-18 13:08] LABS: Creatinine,24hr Ur 0.92 g/24hr (0.60-1.80); Total Volume 2900 ml
[2025-01-19 08:56] LABS: Calcium Urine 11.0 mg/dL (See Note); Timed Urine Volume 2900 mL
== END 2025-01-18 18:21 | disposition home or self-care (01) ==
LOC: LBN 18:20
PROVIDERS: PCP Family Medicine; Visit Provider Internal Medicine
DX: M81.0 Age-related osteoporosis without current pathological fracture (principal)
CPT/HCPCS: 81050; 82340; 82570

== ENCOUNTER 2025-04-06 03:26 | Outpatient (CLI) | payer MEDICARE, OTHER, SELFPAY ==
[2025-04-06 11:36] LABS: BUN 22 mg/dL (7-18); Calcium 9.6 mg/dL (8.5-10.1); Estimated GFR 81.72 (mL/min/1.73m2)
== END 2025-04-06 03:27 | disposition home or self-care (01) ==
LOC: LBO 03:27
PROVIDERS: PCP Family Medicine; Visit Provider Internal Medicine
DX: M81.0 Age-related osteoporosis without current pathological fracture (principal)
CPT/HCPCS: 36415; 84520; 82310; 82565

== ENCOUNTER → 2025-06-07 00:11 | Outpatient (CLI) | payer MEDICARE, OTHER, SELFPAY ==
--- NOTE | 2025-06-07 09:01 | DI.MAMMO_ITS ---
Exam(s) MAMMO SCREENING EXAM: MAMMO SCREENING CLINICAL HISTORY: screening TECHNIQUE: Bilateral full field digital CC and MLO mammographic images were obtained with 3D tomosynthesis and utilizing computer aided detection (CAD). COMPARISON: Comparison is made with prior examinations. FINDINGS: Masses/Architectural Distortion: No suspicious masses or areas of architectural distortion are present. Microcalcifications: No suspicious pleomorphic-type are seen. Skin Thickening/Nipple Retraction: None. IMPRESSION: 1. No significant interval change with no specific features of malignancy noted. 2. Unless there is more urgent need, screening mammography is recommended, as per [place] guidelines. BI-RADS Category 1 - Negative Breast Density - Category C - The breast are heterogeneously dense, which may obscure small masses. Breast density Category C or D implies that the patient has dense breast tissue. Dense breast tissue can make it harder to find cancer on a mammogram. Dense breast tissue is also associated with an increased risk of breast cancer. This information about the result of the mammogram report was provided to the patient to raise their awareness. Use this report when you speak with the patient about their risks for breast cancer, which includes their family history. At that time, you may recommend additional screening tests (Ultrasound or MRI) as these tests may add significant information. A negative radiographic report should not delay biopsy if a dominant or clinically suspicious mass is present. Up to ten percent of cancers are not identified on mammography. A negative report may reinforce clinical impression. Adenosis and dense breasts may obscure an underlying neoplasm. False positive reports average 6 to 10%. Patient will receive a letter notifying them of these results.
== END ==
LOC: DI 00:11
PROVIDERS: PCP Family Medicine; Visit Provider Obstetrics & Gynecology
DX: Z12.31 Encounter for screening mammogram for malignant neoplasm of breast (principal)
CPT/HCPCS: 77063; 77067